=== PATIENT | male | born 1955 | race Caucasian/White ===

== ENCOUNTER 2023-10-13 01:29 | Inpatient (IN) | payer MEDICARE, BC, SELFPAY ==
[2023-10-12 19:15] VITALS: BMI 26.2
[2023-10-12 19:25] VITALS: BP 120/87
[2023-10-12 19:47] LABS: % Basophils 0.8 % (0-2); % Eosinophils 1.6 % (0-6); % Immature Granulocytes 0.4 % (0-0.5); % Lymphocytes 30.1 % (20.5-51.1); % Monocytes 8.1 % (1.7-9.3); Absolute Basophils 0.1 10^3/uL (0-0.2); Absolute Eosinophils 0.1 10^3/uL (0-0.7); Absolute Lymphocytes 2.2 10^3/uL (1.2-3.4); Absolute Monocytes 0.6 10^3/uL (0.1-0.6); Absolute Neutrophils 4.3 10^3/uL (1.4-6.5); Hematocrit 46.1 % (39.0-52.0); Hemoglobin 16.1 g/dL (13.0-18.0); Mean Corp Hgb Conc. 34.9 g/dL (33.0-37.0); Mean Corpuscular Hgb 32.9 pg (27.0-31.0); Mean Corpuscular Volume 94.3 fL (80.0-94.0); Mean Platelet Volume 12.6 fL (7.4-10.4); Nucleated Red Blood Cells % 0 % (-); Platelet Count 146 10^3/uL (130-400); Red Blood Cell Count 4.89 10^6/uL (4.70-6.10); White Blood Cell Count 7.3 10^3/uL (4.8-10.8)
[2023-10-12 20:13] LABS: ALT (SGPT) 30 U/L (0-50); AST (SGOT) 29 U/L (17-59); Albumin 3.8 g/dl (3.5-5.0); Alkaline Phosphatase 75 U/L (38-126); Blood Urea Nitrogen 29 mg/dl (9-20); Calcium 9.8 mg/dl (8.4-10.2); Carbon Dioxide 20 mmol/L (22-30); Chloride 107 mmol/L (98-107); Glucose 96 mg/dl (70-99); Potassium 4.3 mmol/L (3.5-5.1); Sodium 136 mmol/L (135-145); Total Protein 6.1 g/dl (6.3-8.2); eGFR > 60.00
[2023-10-12 20:16] LABS: NT-proBNP 8640 pg/ml; Troponin I 0.194 ng/ml
--- NOTE | 2023-10-12 20:57 | ED.GENMED ---
History of Present Illness
General
Chief Complaint: Breathing Problem
Time Seen by Provider: 10/12/23 20:40
History of Present Illness
History of Present Illness:
68-year-old male without significant past medical history presenting to the emergency department for progressively worsening dyspnea. Patient reports dyspnea essentially since June. Initially talked to his primary care doctor, thought symptoms
may be secondary to anxiety, started on antianxiety medications. However, symptoms have been worsening in the past several weeks with dyspnea on exertion and dyspnea going up stairs. He reports every time he goes to bed, feels like he is drowning,
orthopnea. As of recent, he is also had lower extremity swelling. He was thus advised to get an outpatient stress test. He was not able to get an appointment until October. Symptoms continue to worsen prompting him to come to the hospital today.
Denies any associated chest pain. Denies abdominal pain or GI symptoms. Denies known history of cardiac disease. Denies any history of blood clot. Denies fever or cough. Denies additional acute medical complaints.
Past History
Past History
ED Past Medical History: None; Negative HTN, Hypercholesterolemia, IDDM or NIDDM
ED Past Surgical History: Other (Liver biopsy); Negative Cardiac
Social History
Tobacco: Smoker
Alcohol: Other (Case last week and a half)
Drug: None
Personal:
Living: with family
Employment: Employed
Family History
Family History: Other (Brother with what sounds like arrhythmia)
Phy Exam
Physical Exam
Physical Exam:
General: Well-appearing, no clinical signs of dehydration, nontoxic and in no acute distress
HEENT: protecting airway
Neck: appears supple
CV: Normal heart rate, regular rhythm, no evidence of cyanosis
Resp: No accessory muscle use, no increased work of breathing, lungs clear to auscultation bilaterally
Abd: Soft and non-distended, no tenderness to palpation, normal bowel sounds
Extremities: No deformities, 2+ pitting edema bilaterally. No erythema or warmth.
Neuro: alert, no focal neurologic deficit
: deferred
Rectal: deferred
Psych: Normal affect
Skin: Intact
Scores
Heart Failure Risk
Heart Failure Risk Score: Yes
History of Stroke or TIA: No
History of intubation for respiratory distress: No
Heart rate on ED arrival >/= 110: No
SaO2 <90% on arrival on room air: No
HR >/=110 during 3min walk test (or too ill to perform test): No
ECG has acute ischemic changes: Yes
Urea >/=12mmol/L (BUN 33.6mg/dL): No
Serum CO2>/=35mmol/L: No
Troponin I or T elevated to ID Level (0.4mg/dL): Yes
NT-proBNP >/=5,000ng/L (5,000pg/ml): Yes
HF Risk Score: 5
Admission Status: VERY HIGH RISK 39.8% Consider admission to hospital
Course
Orders/Labs/Results
Orders:
Orders
10/12/23 19:30
Electrocardiogram (*1) Urgent
Reason for Study: Other
Other Reason for Exam: Respiratory Distress
Cardiac Monitoring- Treatment ONCE
EKG- Treatment ONCE
IV Insert/Care/Rem.- Treatment PRN
CR Chest - 2 Views Urgent
Comment:
Reason For Exam: respiratory distress
O2 Therapy [RESP] Urgent
Titrate/Wean O2 to maintain O2 sat greater than (%): 93
Special Instructions: TO MAINTAIN CONTINUOUS O2 SATS >/= 93%
Pulse Ox/cont/shift [RESP] Urgent
Quantity: 1
Special Instructions: continuous pulse ox
10/12/23 19:39
Complete Blood Count/With Diff Urgent
Comprehensive Metabolic Panel Urgent
NT-proBNP Urgent
Troponin I Urgent
10/12/23 21:16
CT Chest Pe Study Urgent
Comment:
Reason For Exam: dypnea on exertion
Abnormal Lab Results
10/12/23
19:39
MCV 94.3 H fL
(80.0-94.0)
MCH 32.9 H pg
(27.0-31.0)
RDW 15.0 H %
(11.5-14.5)
MPV 12.6 H fL
(7.4-10.4)
Carbon Dioxide 20 L mmol/L
(22-30)
BUN 29 H mg/dl
(9-20)
Troponin I 0.194 H* ng/ml
Total Protein 6.1 L g/dl
(6.3-8.2)
10/12/23 19:39
10/12/23 19:39
Vital Signs
Initial and Last Documented VS:
Initial Vital Signs
Temp Pulse Resp BP Pulse Ox
97.8 F 46 20 120/87 100
10/12/23 19:25 10/12/23 19:25 10/12/23 19:25 10/12/23 19:25 10/12/23 19:25
Last Documented Vital Signs
Temp Pulse Resp BP Pulse Ox
97.8 F 88 13 123/94 96
10/12/23 19:25 10/12/23 21:45 10/12/23 21:45 10/12/23 21:40 10/12/23 21:45
MDM/Problems Addressed
MDM/Problems Addressed:
68-year-old male without significant past medical history presenting for progressive dyspnea on exertion with lower extremity edema. Vital signs on arrival are normal.
On exam, patient is in no acute respiratory distress. Overall benign cardiac and pulmonary exam. No increased work of breathing. No rales or rhonchi. However, patient does have bilateral lower extremity pitting edema which patient reports is
new. Symptom presentation appears most consistent with new onset heart failure. EKG obtained, appears abnormal, change from prior. Patient without chest pain. Lower suspicion for ACS. Laboratory analysis obtained prior to my assessment.
Patient with elevated troponin. Possible ischemic demand versus heart strain. PE is also a consideration. For this reason we will obtain CT chest. BNP greater than 8000. Again clinical suspicion for congestive heart failure. Plan for admission
for diuresis pending CT imaging.
*EKG
Interpreted by ED Provider?: Yes
EKG Intrepretation Date: 10/12/23
EKG Intrepretation Time: 21:00
Interpretation: abnormal
Comparison EKG: changes noted
Heart Rate: 94
Rate: normal
Rhythm: sinus
Morrill: left axis deviation
Interval: normal interval
QRS Pattern: normal QRS
Ischemia: non-specific ST changes
*Critical Care Note
Total Time (30-74mins, 75-104mins- exclusive of procedures): Not Applicable
ED Attending Note
-
Portions of this chart may have been created with voice recognition software.� Occasional wrong word or��sound alike� substitutions may have occurred due to the inherent limitations of voice recognition software.
Discharge Plan
Departure
Patient Disposition: Admit
Date of Disposition: 10/12/23
Time of Disposition: 23:25
Presentation/result/management discussed w/ accepting MD/DO: Hospitalist
Condition: Fair
Discharge Problem:
Acute CHF (congestive heart failure), Dyspnea on exertion
Prescriptions:
No Action
escitalopram oxalate 10 mg Tablet
10 mg PO DAILY
Referrals:
Tom Hoang MD [Family Provider] -
Interventions
Interventions:
*Risk Screen - Suicide Last Done: 10/12/23 19:25
*General Assessment Last Done: 10/12/23 19:25
*Neglect/Abuse Screening Last Done: 10/12/23 19:25
ED- Fall Risk Assessment Last Done: 10/12/23 19:25
*ED COVID-19 Vaccine History Last Done: 10/12/23 19:25
ED- Cardiac Assessment Last Done: 10/12/23 20:42
ED- Pulmonary Assessment Last Done: 10/12/23 20:42
Discharge Date and Time
Print Language: MICRONESIAN
[2023-10-12 21:40] VITALS: BP 123/94
[2023-10-12 22:00] VITALS: BP 128/91
[2023-10-13] VITALS (8 sets, daily range): BP systolic 103–146; BP diastolic 58–98; BMI 26.9
--- NOTE | 2023-10-13 00:43 | HPS.HSE ---
Family Physician
-
Family Physician: Tom Hoang
Chief Complaint
-
Shortness of breath and peripheral edema
History of Present Illness
Patient is a 68-year-old male with no prior medical history who presents to the emergency room with about 2 weeks of onset of shortness of breath, chest tightness, and most recently with minimal exertion. Patient complains of inability to sleep at
night or laying flat. Over the last week or so he also noted peripheral edema. He denies any cough, fever. Denies any lower extremity pain, recent travel. He was seen by primary physician with at bedtime main concern for anxiety and was
initiated on escitalopram.
Medical History
Past Medical History
Past Medical History: Denies Arrhythmia, Asthma, CAD, CHF or COPD
Past Surgical History: Reports None
Social History
Tobacco: Former Smoker
Alcohol: None
Drug: Marijuana
Living: With Family
Employment: Retired
Family History
Family History: Not pertinent
Allergies / Home Medications
Allergies reflects when Allergies were last updated in [facility].
Home Medications with original date entered in [facility]
Allergy/Medication List:
Allergies
Allergy/AdvReac Type Severity Reaction Status Date / Time
No Known Allergies Allergy Verified 10/12/23 19:25
Home Medications
escitalopram oxalate 10 mg tablet 10 mg PO DAILY 10/12/23
Review of Systems
-
A 12 point ROS was completed and negative except as noted: Yes
Physical Exam
Vital Signs
Vital Signs
Temp Pulse Resp BP Pulse Ox
97.8 F 88 13 123/94 96
10/12/23 19:25 10/12/23 21:45 10/12/23 21:45 10/12/23 21:40 10/12/23 21:45
Physical Exam
General: Well Developed, Well Nourished and No Apparent Distress
HEENT: NormoCephalic, Moist mucous membranes and Atraumatic
Respiratory: Clear
Cardiac: S1/S2, Regular Rhythm and Other (Bilateral +2 peripheral edema); No Murmur or Rub
GI: Soft, Non Tender, Non Distended, Normal Bowel Sounds and Other; No Organomegaly
Rectal: Deferred by Provider
Musculoskeletal: No Clubbing, No Cyanosis and No Edema
Skin: No Rash
Neuro: Nonfocal/grossly intact
Laboratory Results
-
10/12/23 19:39
10/12/23 19:39
Laboratory Results
Total Bilirubin 1.0 mg/dl (0.2-1.3) 10/12/23 19:39
AST 29 U/L (17-59) 10/12/23 19:39
ALT 30 U/L (0-50) 10/12/23 19:39
Alkaline Phosphatase 75 U/L (38-126) 10/12/23 19:39
Troponin I 0.194 ng/ml H* 10/12/23 19:39
Data Reviewed
-
CT Scan: Report Reviewed by me
Lab Data: Labs Reviewed by me
Impression/Plan
-
IMPRESSION:
Presentation with exertional dyspnea, orthopnea, chest tightness, and peripheral edema.
Acute CHF unknown EF.
Acute pulmonary edema.
Elevated troponin.
Elevated pro CHF BNP
Anxiety
PLAN:
Acute CHF unknown EF
No prior history of cardiovascular conditions
Patient presents with exertional dyspnea, orthopnea, peripheral edema.
Chest x-ray with increased vascularity.
Noted with elevated pro CHF BNP.
CT scan of the chest PE protocol negative for pulmonary embolism. Moderate to severe cardiomegaly. Pulmonary edema. With reflux of contrast to IVC and hepatic veins, suggestion of elevated right heart pressures. Small amount of free fluid.
Nonspecific lymphadenopathy.
Echocardiogram
Initiate IV diuresis with Lasix 40 mg IV twice daily.
Daily weight
Follow BMP
Cardiology consultation
Abnormal troponin
Chest tightness
ECG with normal sinus rhythm with no acute ischemia. Inferior infarct age undetermined. Anterior infarct age indeterminant.
Trend troponin.
Serial ECG
Start aspirin
Check lipid profile
Full code
DVT prophylaxis Lovenox.
[2023-10-13] MEDS: LASIX 40 MG IV ×3 (01:44→14:46)
[2023-10-13] MEDS: LOW STRENGTH ASPIRIN 81 MG PO ×2 (01:44→08:24)
[2023-10-13] MEDS: BENADRYL 25 MG PO (02:52)
[2023-10-13 03:17] LABS: Troponin I 0.202 ng/ml
[2023-10-13 08:03] LABS: % Basophils 0.7 % (0-2); % Eosinophils 0.8 % (0-6); % Immature Granulocytes 0.5 % (0-0.5); % Lymphocytes 26.5 % (20.5-51.1); % Monocytes 7.4 % (1.7-9.3); % Neutrophils 64.1 % (42.2-75.2); Absolute Basophils 0.1 10^3/uL (0-0.2); Absolute Eosinophils 0.1 10^3/uL (0-0.7); Absolute Monocytes 0.6 10^3/uL (0.1-0.6); Absolute Neutrophils 4.8 10^3/uL (1.4-6.5); Hematocrit 46.5 % (39.0-52.0); Hemoglobin 16.3 g/dL (13.0-18.0); Mean Corp Hgb Conc. 35.1 g/dL (33.0-37.0); Mean Corpuscular Hgb 33.3 pg (27.0-31.0); Mean Corpuscular Volume 94.9 fL (80.0-94.0); Mean Platelet Volume 12.9 fL (7.4-10.4); Nucleated Red Blood Cells % 0 % (-); Platelet Count 135 10^3/uL (130-400); Red Cell Dist. Width 14.6 % (11.5-14.5); White Blood Cell Count 7.6 10^3/uL (4.8-10.8)
[2023-10-13] MEDS: LEXAPRO 10 MG PO (08:24)
[2023-10-13 08:28] LABS: Blood Urea Nitrogen 26 mg/dl (9-20); Calcium 9.3 mg/dl (8.4-10.2); Carbon Dioxide 23 mmol/L (22-30); Chloride 103 mmol/L (98-107); Estimated Creatinine Clearance 96 ml/min; Glucose 98 mg/dl (70-99); HDL Cholesterol 27 mg/dl; LDL Cholesterol, Calculated 81 mg/dl; Potassium 4.2 mmol/L (3.5-5.1); Sodium 135 mmol/L (135-145); Total Cholesterol 123 mg/dl (50-199); Triglyceride 77 mg/dl (10-149); Very Low Density Lipoprotein 15 mg/dl (0-30); eGFR > 60.00
[2023-10-13 09:44] LABS: TSH 1.43 uIU/ml (0.47-4.68)
--- NOTE | 2023-10-13 12:37 | CM ---
Patient sen bedside.
IA completed.
DX CHF
Patient lvies with spouse in 2 story home with 2 steps to enter.
Independent prior to admission without assistive devices.
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
Denies home care needs.
PCP: Dr Hoang
Pharmacy: [facility]
Plan: home no needs anticipated.
[2023-10-13 12:39] LABS: Troponin I 0.145 ng/ml
--- NOTE | 2023-10-13 13:34 | W.PN.HOSP.TC ---
Today's Communication/Plan
-
cont IV diuresis
echo Saturday
consult cards
Assessment / Plan
Assessment / Plan
pt is a 68 year old male
Acute CHF unknown EF--better with diuresis--still with volume overload--symptoms since --Echo pending--consult cards--cont diuresis, I/Os, daily weights---CT scan of the chest PE protocol negative for pulmonary embolism. Moderate to severe
cardiomegaly. Pulmonary edema. With reflux of contrast to IVC and hepatic veins, suggestion of elevated right heart pressures. Small amount of free fluid. Nonspecific lymphadenopathy.
Abnormal troponin--likely nonischemic myocardial injury from excess volume--trended downward--cont asa--await cards--ECHO pending
anxiety--cont escitalopram 15 mg daily per pt
code status --Full code
DVT prophylaxis Lovenox.
Anticipated Discharge: > 48 hours
Subjective/Interval History
-
Date of Service: October 13, 2023
pt feeling better--says ankles are down
Objective Data
-
Labs:
Laboratory Results
10/13/23
06:44
WBC 7.6
Hgb 16.3
Hct 46.5
Plt Count 135
Sodium 135
Potassium 4.2
Chloride 103
Carbon Dioxide 23
BUN 26 H
Creatinine 0.9
Glucose 98
Calcium 9.3
Vital Signs:
max temp for 24 hours
10/13/23
07:15
Temp 98 F
Vital Signs
Temp Pulse Resp BP Pulse Ox
97.4 F 89 16 122/86 94
10/13/23 11:05 10/13/23 11:05 10/13/23 11:05 10/13/23 11:05 10/13/23 11:05
I&O
10/12/23 10/13/23 10/14/23
06:59 06:59 06:59
Output Total 1400 / 1400
Balance -1400 / -1400
Review of Systems
-
All other systems: Reviewed and negative
Physical Exam
-
General: Well Developed, Well Nourished and No Apparent Distress
HEENT: Normocephalic and Atraumatic
Respiratory: Crackles (at bases bilaterally)
Cardiac: Regular Rhythm and S1/S2; Negative Murmur
GI: Soft, Nontender, Nondistended and Normal Bowel Sounds
Musculoskeletal: No Clubbing and No Cyanosis; Negative No Edema (3+ edema bilateral ankles)
Neuro: Awake and Alert
Psych: Calm
[2023-10-13] MEDS: LEXAPRO 5 MG PO (13:53)
--- NOTE | 2023-10-13 14:14 | CON.CAR ---
Consultation
Consultation Request
Date/Time Consultation Requested: 10/13/23 7:00AM
Date/Time Consultation Performed: 10/13/23 1:00pm
Requesting Provider: Dr Judd
Performing Provider: Dr Valero
Reason for Consultation: CHF
Medical History
-
Chief Complaint: sob
History of Present Illness:
68-year-old male with minimal past medical history presents to [facility] with several months of orthopnea, PND and dyspnea. The symptoms have been ongoing since June and have been slowly worsening. Last night he could not breathe while
lying flat and felt worse. He has noticed edema and weight gain in his legs. He denies any chest pains although he does get occasional fullness in the center of his chest. He denies any history of hypertension, diabetes or hyperlipidemia. He
stopped drinking several months ago where he was drinking approximately 12 beers a week. Denies any recent illnesses or URIs. He has no fevers or chills. He has no coughing or wheezing. He does not smoke. Does use occasional recreational
marijuana. He has no palpitations or syncope.
Past Medical History
Past Medical History: Other (depression)
Past Surgical History: None
Social History
Tobacco: Former Smoker
Alcohol: Former
Drug: Marijuana
Personal:
Living: With Family
Employment: Retired
Family History
Family History: CAD
Allergies / Home Medications
Allergy/AdvReac Type Severity Reaction Status Date / Time
No Known Allergies Allergy Verified 10/12/23 19:25
�Medication �Instructions �Recorded �Confirmed �Type
escitalopram oxalate 10 mg tablet 15 mg PO DAILY 10/12/23 10/13/23 History
Review of Systems
-
History Source: Patient
Constitutional: Weight Gain and Fatigue
EENT: No Symptoms
Respiratory: Trouble Breathing
Cardiac: Chest Pain
Abdomen/GI: No Symptoms
: No Symptoms
Musculoskeletal: Edema
Skin: No Symptoms
Neurological: No Symptoms
Endocrine: No Symptoms
Hematologic/Lymphatic: No Symptoms
Physical Exam
Vital Signs
Temp Pulse Resp BP Pulse Ox
97.4 F 89 16 122/86 94
10/13/23 11:05 10/13/23 11:05 10/13/23 11:05 10/13/23 11:05 10/13/23 11:05
Lab Results
10/13/23 06:44
10/13/23 06:44
Troponin I 0.145 ng/ml H* D 10/13/23 10:27
Msi-G-[id number] Pept 8640 pg/ml 10/12/23 19:39
Physical Exam
General: Well Developed, Well Nourished and Comfortable
HEENT: Normocephalic and Anicteric
Respiratory: Rhonchi and Non Labored Respirations
Cardiac: S1/S2, Regular Rhythm and Murmur (04/06 syst LSB, S3+)
GI: Soft, Non Tender and Non Distended
Genito-urinary: No Costovertebral Tender
Musculoskeletal: Edema
Skin: Warm and Dry
Neuro: AO x 3
Psych: Calm
Impression / Plan
-
Assess:
Acute heart failure of unknown EF
Abnormal troponin
PVCs
Depression
PLan:
Presents with acute heart failure which has been going on for several months. Start Lasix 40 mg IV twice daily.
Start carvedilol 3.125 mg p.o. twice daily. Continue telemetry. CHF education. Check echocardiogram.
His troponin is normal. Is unclear whether this is a nonischemic myocardial injury or whether he has underlying coronary artery disease as well.
Pending results of echo he likely will need an ischemic evaluation. Continue aspirin.
Trend troponins.
Check lipids
After results of echo if blood pressure is stable we will likely add FREDDY/ARB and possible SLG 2 inhibitor
Data Reviewed
-
EKG: Tracing Personally Visualized and interpreted
Labs: Labs Reviewed by me
[2023-10-13] MEDS: COREG 3.125 MG PO ×2 (14:46→21:16)
[2023-10-13 18:48] LABS: Troponin I 0.154 ng/ml
[2023-10-14] VITALS (18 sets, daily range): BP systolic 94–117; BP diastolic 53–99; BMI 25.5
[2023-10-14] MEDS: COREG 3.125 MG PO (07:12)
[2023-10-14] MEDS: LOW STRENGTH ASPIRIN 81 MG PO (07:12)
[2023-10-14] MEDS: LEXAPRO 15 MG PO (07:12)
[2023-10-14] MEDS: LASIX 40 MG IV ×2 (07:16→16:31)
[2023-10-14 08:34] LABS: Hematocrit 48.9 % (39.0-52.0); Mean Corp Hgb Conc. 34.8 g/dL (33.0-37.0); Mean Corpuscular Hgb 32.8 pg (27.0-31.0); Mean Corpuscular Volume 94.4 fL (80.0-94.0); Mean Platelet Volume 12.5 fL (7.4-10.4); Platelet Count 147 10^3/uL (130-400); Red Blood Cell Count 5.18 10^6/uL (4.70-6.10); Red Cell Dist. Width 14.9 % (11.5-14.5); White Blood Cell Count 7.3 10^3/uL (4.8-10.8)
--- NOTE | 2023-10-14 09:07 | W.PN.CARDCBS ---
Addendum entered and electronically signed by Gaurav Goodson DO 10/14/23 10:46:
I saw and examined the patient.
The Laminator Hand's note was reviewed and I agree with the note.
Comment:
Plan:
Wt coming down.
Cont IV diuresis
New to Coreg
Add Losartan
Trop peak 0.2.
Ischemic eval inpt vs outpt pending echo findings.
Original Note:
Today's Communication / Plan
-
Weight is down and he is symptomatically improved
Echo pending
Adding losartan 25 mg daily
Impression / Plan
-
PCP: Dr. Tom Hoang
Cardiology: None prior to admission
Impression:
Acute HF unknown EF
Elevated troponin, peak at 0.202
PVCs
Depression
Echo 10/14/23: Study pending
Plan:
-Weight is down 12 lbs overnight with Lasix 40 mg IV BID diuresis. Patient was not taking a diuretic prior to admission.
-Labs pending 10/14/23 with potassium 4.2 on 10/13/23 prior to 12 lbs diuresis. Pending labs might need electrolyte supplementation.
-Echo pending
-New to Coreg 3.125 mg BID this admission.
-Will start losartan 25 mg daily and pending echo can transition to Entresto if EF is reduced.
-Troponin peaked at 0.202. Talked with patient about possibility of cardiac cath. No chest pain and ECG with nonspecific changes.
-New to aspirin 81 mg daily
-LDL 81
HPI: 68-year-old male with minimal past medical history presents to [facility] with several months of orthopnea, PND and dyspnea. The symptoms have been ongoing since June and have been slowly worsening. Last night he could not breathe
while lying flat and felt worse. He has noticed edema and weight gain in his legs. He denies any chest pains although he does get occasional fullness in the center of his chest. He denies any history of hypertension, diabetes or hyperlipidemia.
He stopped drinking several months ago where he was drinking approximately 12 beers a week. Denies any recent illnesses or URIs. He has no fevers or chills. He has no coughing or wheezing. He does not smoke. Does use occasional recreational
marijuana. He has no palpitations or syncope.
Progress Note - Personnel Interviewer
Subjective
Date of Service: October 14, 2023
He feels much better compared to admission
Objective
Labs:
10/14/23 08:17
Labs
Hgb 17.0 g/dL (13.0-18.0) 10/14/23 08:17
Hct 48.9 % (39.0-52.0) 10/14/23 08:17
Plt Count 147 10^3/uL (130-400) 10/14/23 08:17
Sodium 135 mmol/L (135-145) 10/13/23 06:44
Potassium 4.2 mmol/L (3.5-5.1) 10/13/23 06:44
BUN 26 mg/dl (9-20) H 10/13/23 06:44
Creatinine 0.9 mg/dL (0.7-1.3) 10/13/23 06:44
Glucose 98 mg/dl (70-99) 10/13/23 06:44
Troponins
10/12/23 10/13/23 10/13/23
19:39 02:32 10:27
Troponin I 0.194 H* 0.202 H* 0.145 H* D
10/13/23
18:02
Troponin I 0.154 H*
Vital Signs and I&O:
Vital Signs
Temp Pulse Resp BP Pulse Ox
97.4 F 48 19 117/77 96
10/14/23 07:30 10/14/23 07:30 10/14/23 07:30 10/14/23 07:30 10/14/23 07:30
Vital Signs
Temp Pulse Resp BP Pulse Ox
97.4 F 48 19 117/77 96
10/14/23 07:30 10/14/23 07:30 10/14/23 07:30 10/14/23 07:30 10/14/23 07:30
Intake & Output
10/12/23 10/13/23 10/14/23 10/15/23
06:59 06:59 06:59 06:59
Intake Total 540 / 540
Output Total 1400 / 1400 250 / 250
Balance -1400 / -1400 290 / 290
Physical Exam
Physical Exam
GEN: AAOx3
HEENT: MMM
LUNGS: No audible wheeze
CV: SR on tele
ABD: ND
EXT: Trace B/L LE edema.
NEURO: Gross non-focal
SKIN: No rash
[2023-10-14 12:23] LABS: ALT (SGPT) 26 U/L (0-50); AST (SGOT) 30 U/L (17-59); Albumin 3.5 g/dl (3.5-5.0); Alkaline Phosphatase 69 U/L (38-126); Blood Urea Nitrogen 26 mg/dl (9-20); Calcium 9.4 mg/dl (8.4-10.2); Carbon Dioxide 26 mmol/L (22-30); Chloride 102 mmol/L (98-107); Estimated Creatinine Clearance 72 ml/min; Glucose 95 mg/dl (70-99); Magnesium 1.7 mg/dl (1.6-2.3); Potassium 4.1 mmol/L (3.5-5.1); Sodium 134 mmol/L (135-145); Total Bilirubin 1.2 mg/dl (0.2-1.3); Total Protein 5.8 g/dl (6.3-8.2); eGFR > 60.00
--- NOTE | 2023-10-14 13:12 | W.PN.UPDATE ---
Addendum entered and electronically signed by Carol Mathias PA-C 10/14/23 16:15:
Patient with [employer] on cath, CM is out of proportion. CT surgical team consulted. CI is 1.1 and PCWP 30. Coreg will be held. Milrinone being considered. Will continue with plan to start losartan. Start Heparin gtt at 2130 tonight, orders placed
by me. Check lactate at 2130 tonight when labs are drawn for Heparin gtt.
Patient's and sister updated by interventional cardiology. Plan is for cardiac MRI in AM, orders placed by me. Patient's sister reports FH of SCD with brother who dies in his 40s and another brother who is alive and has a h/o HF. Patient also
had a trip to [place] shortly before his symptoms began.
Original Note:
Update Note
Progress Note Update
Patient had his echo this morning and I stopped into his room again to review echo. EF down to 10% with global hypokinesis, laminated apical LV thrombus, stage 3 diastolic dysfunction and mod to sev MR. Patient recommended cardiac cath and he is
agreeable, he wants to run it by his sisters who are nurses and I offered to call them as well, but he says he is comfortable reviewing on his own and will let his RN know if he'd like cath today vs tomorrow. Patient also agreeable to start
anticoagulation for laminated thrombus. Reviewed with manager cath lab physician and manager cath lab team that patient has an apical LV thrombus and should not have a ventriculogram. Updated hospitalist attending as well. 31 minutes of critical care time in face
to face time with patient explaining echo findings, talking with interventional cardiology, coordinating care etc.
--- NOTE | 2023-10-14 15:35 | CM ---
Patient seen earlier this am and transferred to IVU. Patient plan is home with no needs. CM will continue to follow for discharge planning needs.
Plan; home with no needs anticipated
--- NOTE | 2023-10-14 15:50 | CONSULT.CT ---
Addendum entered and electronically signed by Hollis Jackson MD 10/15/23 09:22:
I saw and examined the patient.
The MANAGER INVENTORY CONTROL's note was reviewed and I agree with the note.
Comment:
Despite Echo and cath findings, he looked remarkably well this morning when I met him. His presentation was heart failure with SOB and edema. He denied significant chest pain but did admit to having some progressive symptoms starting in June with
everything worsening over the last 2 weeks. He has been diuresed several Kg. Agree with low dose milrinone, more diuresis, and MRI assessment for viability. Agree with hep gtt (eventual transition to DOAC). Would repeat TTE this week to assess for
recovery of LVEF with medical optimization. The echo and RHC findings seem out of proportion to his CAD. Will follow along. If there is some improvement and viability, I do feel that revascularization is indicated - options would be to do as an
inpatient after medical optimization OR to allow some time for GDMT followed by outpt scheduling for intervention given how stable he appears. Will need MDT discussion regarding his POC this week.
Hollis Jackson MD, MS
Cardiac Surgeon
[facility]
Original Note:
Consultation
-
Date/Time Consultation Requested: 10/14/23 1525
Date/Time Consultation Performed: 10/14/23 1551
Requesting Provider: Dr. Marshall
Performing Provider: Steven Andrea MD
Reason for Consultation: CABG eval
Patient History
Physicians
Family Physician: Tom Hoang
Outpatient Patternmaker Metal: N/A
Inpatient Patternmaker Metal: JEFF
History of Present Illness
68-year-old male with no significant prior medical history presented to [facility] emergency room on 10/12 with shortness of breath and chest tightness for about 2 weeks. He reports inability to lie flat to sleep and has noted increased peripheral
edema. Of note patient was seeing his PCP during this time, he was started on Lexapro for possible anxiety and he was scheduled for a stress test on November 02 however due to him not being able to sleep and increased peripheral edema he went to the
emergency room instead. While in the ER he was found to have elevated troponins. Cardiology was consulted and today patient received a left heart cath and TTE. Echocardiogram showed that the left ventricle was severely dilated and ejection
fraction was about 10% with severe global hypokinesis, a laminated apical thrombus, thickened mitral valve leaflets and moderate to severe MR. He was then taken to the cardiac Piano Case Maker where he was found to have a occluded LAD and a cardiac index
of 1.1. CT surgery was consulted for surgical evaluation.
Past Medical History
Past Medical History: None
Past Surgical History
Past Surgical History: None
Dental History
several missing teeth
poor dental follow up per patient last saw dentist 30 years ago
Family History
Mother: Cause of (CVA/MS)
Father: Cause of (Liver Cancer)
Family Medical History: CAD (siblings)
Social History
Alcohol: Occasional
Drug: Marijuana (daily (equal to 3 cigarettes))
Tobacco: Other (smokes marijuana via pipe)
Personal:
Living: With Spouse
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
Allergies
Allergy/AdvReac Type Severity Reaction Status Date / Time
No Known Allergies Allergy Verified 10/12/23 19:25
Home Medications
�Medication �Instructions �Recorded �Confirmed �Type
escitalopram oxalate 10 mg tablet 15 mg PO DAILY 10/12/23 10/13/23 History
Review of Systems
-
History Source: Patient
General: Reports Weight Gain, Fatigue and Sleep Disturbance
HEENT: Reports No Symptoms
Respiratory: Reports SOB, ADAME, Cough and PND
Cardiac: Reports CAD and Edema
Abdomen/GI: Reports No Symptoms
: Reports No Symptoms
Musculoskeletal: Reports No Symptoms
Skin: Reports No Symptoms
Neurological: Reports No Symptoms
Vascular: Reports No Symptoms
Physical Exam
Vital Signs
Temp 97.6 F 10/14/23 10:50
Temp route: Oral 10/14/23 10:50
Pulse 75 10/14/23 10:50
Rhythm: Normal sinus rhythm 10/14/23 07:20
With- Bundle Branch Block Confi, PVC's Monomorphic 10/14/23 07:20
Resp Rate 19 10/14/23 10:50
Blood pressure 114/72 10/14/23 10:50
Blood pressure extremity used: Left upper arm 10/14/23 10:50
Position: Sitting 10/14/23 10:50
MAP (cuff-Boubacar Monitor) 106 10/13/23 01:00
SaO2 96 10/14/23 10:50
Nasal Cannula flow liters per minute 4 10/14/23 07:30
Oxygen Mode of Delivery Room air 10/14/23 10:50
Acceptable pain level during hospitalization? 0 10/12/23 19:25
Can the patient verbally communicate their pain? Yes 10/14/23 07:20
Actual Weight 92.442 kg 10/14/23 06:00
Body Mass Index (BMI) 25.5 10/14/23 06:00
Labs
10/14/23 08:17
10/14/23 11:32
Troponin I 0.154 ng/ml H* 10/13/23 18:02
Cop-Q-Spcxujzdofl Pept 8640 pg/ml 10/12/23 19:39
Exam
General: Well Developed and Well Nourished
HEENT: Normocephalic
Respiratory: Clear and Crackles
Cardiac: S1/S2 and Regular Rhythm
GI: Soft, Non Tender and Non Distended
Rectal: Deferred by Provider
Skin: Warm and Dry
Neuro: AO x 3 and No Motor Deficits
Extremities: Lower Level Edema
Lymph: No Lymphadenopathy
Psych: Calm
Assessment / Plan
-
68-year-old male with no significant past medical history presented to [facility] and ruled in for a NSTEMI. Left heart cath revealed CAD and CT surgery was consulted for surgical evaluation.
#CAD
#Moderate to severe MR
#ICM
#Cardiogenic shock
- Patient's case will be discussed with attending physician. Further details regarding surgical timing intervention will be determined after attending physicians full evaluation
- Routine preoperative cardiothoracic surgery orders will be initiated.
- STS risk stratification score will be calculated after preoperative testing is complete
- Continue heparin gtt for LV thrombus
- Would continue diureses for surgical optimization
- Cardiac MRI tomorrow and possible swan placement Saturday per cards.
- T/C repeat TTE
- would start low dose milrinone for CI of 1.1
Data Reviewed
-
EKG: Tracing Personally Visualized and interpreted
Piano Case Maker: Image Personally Visualized and interpreted
Echo: Image Personally Visualized and interpreted, Report Reviewed by me and Discussed with Physician
Labs: Labs Reviewed by me and Discussed with Physician
Critical Care Time (in minutes): 45
Total Time Spent with Patient (in minutes): 30
--- NOTE | 2023-10-14 15:59 | PTCARENOTE ---
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 Pt with Rt radial TR band in place and Rt brachial site dsg intact. No bleeding noted. Pt AAO x 3, pt denies pain, denies sob. Pulse ox 88%, pt placed on 2l n/c oxygen. See worklist for VS/I and O and
assessment.
--- NOTE | 2023-10-14 16:32 | W.PN.HOSP.TC ---
Addendum entered and electronically signed by Rowena Judd MD 10/14/23 18:26:
I saw and evaluated the patient independently. I reviewed the resident�s note and agree with findings and plan as documented by Dr. Fleming.
GENERAL: well developed, well nourished, male in no apparent distress
HEENT: NC/AT--no O2 requirements
HEART: regular rate and rhythm, +S1, +S2, faint 1/6 ISAAC
LUNGS : clear to auscultation bilaterally
ABDOM: soft, nontender, nondistended, + bowel sounds
EXT: no cyanosis, clubbing-- 2-3+ LE edema bilaterally
NEUROLOGIC: grossly intact
Acute Mixed ischemic and nonischemic cardiomyopathy with severely reduced LV systolic function (LVEF 10% by echo) and cardiac output, consistent with cardiogenic shock--s/p cardiac cath with findings (100% chronic total occlusion of mid LAD at the
level of the diagonal branch with eccentric 70% ostial diagonal stenosis and left to left collaterals)--better with diuresis but still with volume overload--symptoms since --Echo with decreased EF and apical clot--apprec cards--cont diuresis,
I/Os, daily weights---CT scan of the chest PE protocol negative for pulmonary embolism. Moderate to severe cardiomegaly. Pulmonary edema. With reflux of contrast to IVC and hepatic veins, suggestion of elevated right heart pressures. Small
amount of free fluid. Nonspecific lymphadenopathy--likely will start milrinone for ionotropic support and to augment diuresis--for cardiac MRI as well--CT surgery consult--IV heparin started
Abnormal troponin--likely nonischemic myocardial injury from excess volume--trended downward--cont asa--apprec cards--ECHO as noted
anxiety--cont escitalopram 15 mg daily per pt
code status --Full code
DVT prophylaxis Lovenox.
Original Note:
Today's Communication/Plan
-
Started losartan and milrinone--Continue Lasix and aspirin--plan for cardiac MRI and cath tomorrow
Assessment / Plan
Assessment / Plan
pt is a 68 year old male
Exertional SOB and peripheral edema: symptoms since but got worse from 2 weeks ago--CT scan of the chest: PE protocol negative for pulmonary embolism. Moderate to severe cardiomegaly. Pulmonary edema. With reflux of contrast to IVC and
hepatic veins, suggestion of elevated right heart pressures. Small amount of free fluid. Nonspecific lymphadenopathy. Echo today showed EF down to 10% with global hypokinesis, laminated apical LV thrombus, stage 3 diastolic dysfunction and
moderate to severe MR--cont diuresis, I/Os, daily weights--appreciate cardiology consult--patient is agreeable to cardiac cath and anticoagulation treatment for laminated thrombus.
Will have cardiac MRI in a.m. losartan and milrinone started--continue aspirin and Lasix--Coreg held
Abnormal troponin--likely nonischemic myocardial injury from excess volume--trended downward
Recent diagnosis of anxiety--cont escitalopram 15 mg daily per pt
code status --Full code
DVT prophylaxis: Lovenox.
Anticipated Discharge: 24 - 48 hours
Subjective/Interval History
-
Date of Service: October 14, 2023
Patient is calm and is feeling good in general--believes peripheral edema has improved since Saturday--no complaints
Objective Data
-
Labs:
Laboratory Results
10/14/23 10/14/23 10/14/23
08:17 11:32 21:30
WBC 7.3
Hgb 17.0
Hct 48.9
Plt Count 147
APTT Pending
Sodium Cancelled 134 L
Potassium Cancelled 4.1
Chloride Cancelled 102
Carbon Dioxide Cancelled 26
BUN Cancelled 26 H
Creatinine Cancelled 1.2
Glucose Cancelled 95
Calcium Cancelled 9.4
Total Bilirubin Cancelled 1.2
AST Cancelled 30
ALT Cancelled 26
Alkaline Phosphatase Cancelled 69
Vital Signs:
Vital Signs
Temp Pulse Resp BP Pulse Ox
97.9 F 75 19 102/80 94
10/14/23 16:08 10/14/23 16:31 10/14/23 10:50 10/14/23 16:31 10/14/23 16:10
I&O
10/13/23 10/14/23 10/15/23
06:59 06:59 06:59
Intake Total 540 / 540
Output Total 1400 / 1400 250 / 250
Balance -1400 / -1400 290 / 290
Review of Systems
-
History Source: Patient
All other systems: Reviewed and negative
Constitutional: Reports No Symptoms
Musculoskeletal: Reports Edema
Physical Exam
-
General: Well Developed, Well Nourished and Comfortable
HEENT: Normocephalic and Atraumatic
Respiratory: Crackles
Cardiac: Regular Rhythm and S1/S2
Musculoskeletal: Edema, Right Lower Extrem and Edema, Left Lower Extrem
Psych: Calm
Data Reviewed
-
Total Time Spent with Patient (in minutes): 20
--- NOTE | 2023-10-14 16:50 | ITS.CL.CATH ---
Addendum entered and electronically signed by Bindu Marshall MD 10/14/23 17:14:
Of note, after heart catheterization I had a lengthy discussion about all of the findings with the patient along with his and sister who is a retired ICU nurse. We discussed findings of the heart catheterization including the fact that we
think there is a mixed cardiomyopathy going on with a severely reduced LV systolic function with plans to initiate medications including low-dose milrinone with close monitoring in the IVU and the fact that we would pursue a cardiac MRI. Given
severely reduced cardiac output with elevated filling pressures and an LVEF of 10% in a otherwise young patient with significant comorbid conditions, I also reached out to Dr. Alexandra Gabriel [facility] to discuss patient's case in case
his clinical status worsens in any way warranting mechanical support and potential transfer to a tertiary care center. She agreed with our plan for now in regards to medical therapy as planned including afterload reduction and inotropic support as
well as pursuing a cardiac MRI given LV dysfunction is out of proportion to be explained by the degree of coronary artery disease.
Bindu Marshall MD, [facility], [facility]
Original Note:
[employer] - Catheterization
Cardiac Catheterization
Procedure Report:
LEFT AND RIGHT HEART CATHETERIZATION
Date of Procedure: October 14, 2023
Referring: Gaurav Goodson D.O.
PROCEDURES:
1. Left catheterization, coronary angiogram.
2. Right heart catheterization.
3. Ultrasound-guided access
INDICATION: Patient is a 68-year-old gentleman with family history of coronary artery disease on his mom side and 2 siblings with ' congestive heart failure', 1 of whom after sudden cardiac arrest, former smoker, quit 40 years ago,
occasional marijuana use and recent trip to [facility] in early June with progressive dyspnea starting Easter found to have acute decompensated heart failure with severely reduced ejection fraction of 10% on echocardiogram this morning with LV
end-diastolic dimension of 7 cm. Echocardiogram was also notable for a laminated LV thrombus. He is now being referred for left and right heart catheterization to rule out obstructive CAD and to assess invasive hemodynamics. Patient was started
on low-dose carvedilol and IV Lasix yesterday and is already down 12 pounds with improvement in his shortness of breath. He denies any chest discomfort through this. He denies any recent respiratory illnesses. He is up-to-date on his flu and
COVID vaccines. He denies any significant alcohol use. TSH normal.
ACCESS:
1. Right radial artery, 6 Azerbaijani sheath, under ultrasound guidance.
2. Right brachial vein, 6 Azerbaijani sheath
HEMODYNAMICS : (mmHg)
RA (m) : 12
RV (s/d,m) : 42/11, 17
PA (s/d, m) : 41/24, 31
PCWP (m) : 31
PA saturation: 49.4% on 4 L of oxygen via nasal cannula
AO saturation: 98.3% on 4 L of oxygen via nasal cannula
RA saturation: 53.1% on 4 L of oxygen via nasal cannula.
Cardiac Output : 2.36 L/min
Cardiac Index : 1.06 L/min/m-2
Systemic vascular resistance: 2547 dsc^(-5)
Pulmonary vascular resistance: [ ] schulz unit
Heart rate: 60 bpm
AO (s/d) : 102/79
Aortic valve was not crossed to obtain LVEDP in the setting of known left ventricular thrombus.
CORONARY FINDINGS
DOMINANCE: Left
LEFT MAIN: The left renal artery is a large-caliber vessel which gives rise to the left anterior descending artery and the left circumflex artery. There is minimal luminal irregularities.
LEFT ANTERIOR DESCENDING: The left anterior descending artery is a medium caliber vessel which gives rise to 2 major diagonal branches as it courses through the anterior interventricular groove towards the apex. In the mid LAD at the level of the
takeoff of the second diagonal branch which is medium caliber 100% chronic total occlusion is noted with left to left collaterals. Ostial diagonal has an eccentric 70% stenosis.
CIRCUMFLEX: The left circumflex artery is a medium to large caliber, dominant vessel which gives rise to 2 major obtuse marginal branches, a left posterolateral branch and the left posterior descending artery. OM1 has mild diffuse atherosclerotic
plaque in the proximal portion including the ostium. Otherwise there is minimal luminal irregularities with moderate degree of tortuosity.
RIGHT CORONARY ARTERY: The right coronary artery is a small caliber, nondominant vessel with minimal luminal irregularities.
SEDATION: 47 minutes of procedural sedation was utilized. An independent medical social worker was present to assist with and help manage the patient's level of consciousness and physiologic status.
RADIATION SUMMARY: Fluoro Time (min): 3.3, Dose (mGy): 485.64, DAP (Gy.cm2) : 29.7
Closure Device:
1. Vascular band over right radial artery, 12 cc of air.
2. Manual pressure was held over the right brachial venous access site with successful hemostasis.
CONCLUSIONS
1. Left dominant coronary circulation
2. 100% chronic total occlusion of mid LAD at the level of the diagonal branch with eccentric 70% ostial diagonal stenosis and left to left collaterals.
3. Non-obstructive coronary artery disease otherwise.
4. Significantly elevated right and left-sided filling pressures with severely reduced cardiac output in the setting of severely elevated systemic vascular resistance.
RECOMMENDATIONS
1. Mixed ischemic and nonischemic cardiomyopathy with severely reduced LV systolic function (LVEF 10% by echo) and cardiac output. Optimization of goal-directed medical therapy along with initiation of inotropic therapy to help reduce with
afterload reduction and promote forward flow. We will discontinue beta-carolina to prevent negative inotropic agent.
2. Will obtain CT surgery consult for heart team discussion and pursue cardiac MRI to workup nonischemic causes of cardiomyopathy.
3. Aggressive management of cardiovascular risk factors.
4. Wean radial band per protocol.
5. Eventual referral for outpatient cardiac rehab and repeat echocardiogram in 3 months to reassess LVEF.
Copy to: William Valero, Gaurav Goodson
Bindu Marshall MD, [facility], [facility]
[2023-10-14] MEDS: MAGNESIUM OXIDE 500 MG PO (17:35)
[2023-10-14] MEDS: CRESTOR 20 MG PO (17:35)
--- NOTE | 2023-10-14 18:16 | PTCARENOTE ---
unable to obtain BP in Rt upper arm due to Rt brachial vein site and Rt radial artery used for cardiac cath.
[2023-10-14 19:25] LABS: Amphetamines Negative (Negative); Barbiturates Negative (Negative); Benzodiazepines Negative (Negative); Buprenorphine Negative (Negative); Cocaine Negative (Negative); Marijuana Positive (Negative); Methadone Negative (Negative); Methamphetamines Negative (Negative); Opiates Negative (Negative); Phencyclidine Negative (Negative); Tricyclic Antidepressants Negative (Negative)
[2023-10-14] MEDS: HEPARIN 25000 UNITS/250 ML IV (21:38)
[2023-10-14] MEDS: COZAAR 25 MG PO (21:41)
[2023-10-14 21:59] LABS: APTT 28.3 Sec (23.4-35.0)
[2023-10-14 22:00] LABS: Lactic Acid 1.1 mmol/L (0.7-2.0)
[2023-10-14 22:13] LABS: Alcohol None Detected
[2023-10-15] VITALS (7 sets, daily range): BP systolic 94–126; BP diastolic 57–89; BMI 25.5
[2023-10-15 03:59] LABS: Hematocrit 42.6 % (39.0-52.0); Hemoglobin 15.1 g/dL (13.0-18.0); Mean Corp Hgb Conc. 35.4 g/dL (33.0-37.0); Mean Corpuscular Hgb 33.3 pg (27.0-31.0); Mean Corpuscular Volume 93.8 fL (80.0-94.0); Mean Platelet Volume 12.5 fL (7.4-10.4); Platelet Count 116 10^3/uL (130-400); Red Blood Cell Count 4.54 10^6/uL (4.70-6.10); Red Cell Dist. Width 14.3 % (11.5-14.5); White Blood Cell Count 6.1 10^3/uL (4.8-10.8)
[2023-10-15 04:13] LABS: APTT 46.1 Sec (23.4-35.0); INR 1.33; PT 16.3 Sec (11.4-14.6)
[2023-10-15 04:29] LABS: ALT (SGPT) 22 U/L (0-50); AST (SGOT) 25 U/L (17-59); Alkaline Phosphatase 64 U/L (38-126); Blood Urea Nitrogen 27 mg/dl (9-20); Calcium 8.9 mg/dl (8.4-10.2); Carbon Dioxide 25 mmol/L (22-30); Chloride 101 mmol/L (98-107); Direct Bilirubin 0.3 mg/dl (0.0-0.4); Estimated Creatinine Clearance 79 ml/min; Glucose 93 mg/dl (70-99); HDL Cholesterol 23 mg/dl; LDL Cholesterol, Calculated 68 mg/dl; Magnesium 1.7 mg/dl (1.6-2.3); Potassium 3.6 mmol/L (3.5-5.1); Sodium 134 mmol/L (135-145); Total Bilirubin 0.9 mg/dl (0.2-1.3); Total Cholesterol 104 mg/dl (50-199); Total Protein 5.3 g/dl (6.3-8.2); Triglyceride 65 mg/dl (10-149); Very Low Density Lipoprotein 13 mg/dl (0-30); eGFR > 60.00
[2023-10-15] MEDS: LOW STRENGTH ASPIRIN 81 MG PO (08:53)
[2023-10-15] MEDS: COZAAR 25 MG PO (08:54)
[2023-10-15] MEDS: MAGNESIUM OXIDE 500 MG PO (08:54)
[2023-10-15] MEDS: LASIX 40 MG IV ×2 (08:55→09:50)
[2023-10-15] MEDS: LEXAPRO 15 MG PO (08:56)
--- NOTE | 2023-10-15 09:02 | W.PN.UPDATE ---
Update Note
Progress Note Update
Patient seen at bedside with attending physician.
Case reviewed with patient.
CT surgery is following for evaluation regarding CABG x 1 (GEOLOGICAL E LOGGER of LAD), mixed ischemic and nonischemic cardiomyopathy with EF of 10%, and moderate to severe MR.
#Single vessel CAD
# Moderate to severe MR
# Cardiogenic shock
# Mixed ischemia and nonischemic CM with EF 10%
Continue primary management per hospitalist service
Continue Heparin and Milrinone gtt per Cardiology
Cardiac MRI to determine viability (scheduled to be done today 10/14)
Central venous catheter with [place] catheter tentatively Sunday 10/15
Will eventually need repeat echocardiogram
Patient being diuresed with Lasix 80 IV BID, will order 25% albumin to be given with Lasix.
CT surgery will follow appropriately
Further plans regarding patients intervention will be decided after further review of the above procedures/exams
--- NOTE | 2023-10-15 09:28 | CM ---
Reviewed chart. Mr.. Summers was transferred to IVU. He states prior to admission he resides with his spouse and son in a two story home with three steps to enter. He states he has a full flight of steps to get to bedroom/full bathroom. He states
he has a powder room on the first floor. He states prior to admission he was independent with ambulation and adls. He states he does not have any DME in the home. He states he has a prescription plan. Medical work-up in progress. The discharge
plan is to return home with his spouse and son when medically stable.
[2023-10-15] MEDS: KCL 40 MEQ PO (09:50)
[2023-10-15] MEDS: FLEXBUMIN 50 IV ×2 (10:10→16:11)
--- NOTE | 2023-10-15 10:40 | PTCARENOTE ---
Pt left floor for PFT and CS US
[2023-10-15 10:48] LABS: APTT 44.8 Sec (23.4-35.0)
--- NOTE | 2023-10-15 11:27 | PTCARENOTE ---
Pt platelets 116,000 this AM. Notified Pat Doyle and Dr. Judd. Continuing heparin for now.
--- NOTE | 2023-10-15 12:28 | W.PN.CARDCBS ---
Addendum entered and electronically signed by Wilbert Kincaid MD 10/15/23 13:33:
I saw and examined the patient.
The BENZENE WORKER or PA's note was reviewed and I agree with the note.
Comment: General: Well developed, well nourished in NAD.
Neck: Supple, no JVD, HJR, carotids +2 B/L, no bruits bilaterally.
Heart: Non displaced PMI, RRR, no murmurs, No S3, S4, no rubs.
Lungs: Scattered rhonchi
Extremities: No clubbing, cyanosis or edema bilaterally.
Neuro: Grossly nonfocal, awake, alert and oriented x3.
He feels very well but evidence of CHF on right heart catheterization on 10/14/2023. Will increase IV Lasix. Will continue milrinone. Will continue to try and treat medically. Perhaps LV function and MR will improve with treatment. CT surgery
has met with patient and would consider mitral valve surgery if MR persist despite treatment. Will continue IV heparin for now with LV thrombus.
Original Note:
Today's Communication / Plan
-
Replete potassium and magnesium
Increase Lasix to 80 mg IV twice daily
Continue milrinone drip
Cardiac MRI 10/16/2023 with placement of [place] catheter following
Continue IV heparin for left ventricle laminated apical thrombus
Impression / Plan
-
PCP: Dr. Tom Hoang
Cardiology: None prior to admission
Impression:
Presented 10/12/2023 with acute shortness of breath
Acute HF severely reduced ejection fraction EF, proBNP 8640
Cardiogenic shock
Elevated troponin, peak at 0.202
Type 2 CA
Coronary artery disease
Chronic total occlusion of mid LAD
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
Moderate to severe mitral regurgitation
PVCs
Depression
Cardiac catheterization 10/14/2023: LM: I.lad: chronic total occlusion mid with left to left collaterals. Ostial diagonal 70% stenosis. LCX: Luminal irregularities: RCA: Luminal irregularities.
HEMODYNAMICS : (mmHg): RA (m) : 12; RV (s/d,m) : 42/11, 17; PA (s/d, m) : 41/24, 31; PCWP (m) : 31;
PA saturation: 49.4% on 4 L of oxygen via nasal cannula
AO saturation: 98.3% on 4 L of oxygen via nasal cannula
RA saturation: 53.1% on 4 L of oxygen via nasal cannula.
Cardiac Output : 2.36 L/min
Cardiac Index : 1.06 L/min/m-2
Systemic vascular resistance: 2547 dsc^(-5)
Pulmonary vascular resistance: [ ] schulz unit
Heart rate: 60 bpm
AO (s/d) : 102/79
Aortic valve was not crossed to obtain LVEDP in the setting of known left ventricular thrombus.
Echo 10/14/23: EF 10%. Severely dilated LV. Severely reduced LV function with global hypokinesis. Anteroseptal, septal and apical akinesis. Stage III diastolic dysfunction with restrictive filling pattern and increased filling pressures.
Laminated LV apical thrombus. Severely dilated LA. Moderate to severe MR. Mild TR. PAP 39 mmHg. Mildly dilated aortic root sinus of Valsalva 3.9 cm
Plan:
-Presented 10/12/2023 with acute shortness of breath, weight gain and edema.
-Acute heart failure with severely reduced ejection fraction, proBNP 8640 with mixed ischemic and nonischemic cardiomyopathy out of proportion to coronary artery disease found on cardiac catheterization
-Cardiogenic shock with cardiac index of 1.06 on right heart catheterization 0n 10/14/23. Initiation of inotropic therapy to help reduce with afterload reduction and promote forward flow. Patient now on IV milrinone at 0.125 mcg/kg/min and feeling
well.
-Weight is down 11 lbs overnight since admission. Increased IV Lasix to 80 mg twice daily 10/15/23. Patient was not taking a diuretic prior to admission.
-Potassium 3.6, magnesium 1.7. Will replete.
-Echo as noted above EF 10%
-Type II CA, peak troponin 0.202 with single-vessel coronary artery disease with chronic total occlusion of LAD with collaterals noted on catheterization 10/14/2023
-Given cardiogenic shock hold on Coreg. Patient started on losartan. Eventual GDMT
-Left ventricle laminated apical thrombus. Continue IV heparin drip; will eventually need oral anticoagulation
-Plan is for patient to undergo cardiac MRI. After talking with MRI department tentatively scheduled for 10/16/2023. After completion of MRI patient will undergo placement of [place] catheter for close monitoring of hemodynamics
-Eventual repeat echocardiogram later this week with diuresis
-Being evaluated by CT surgery for eventual CABG x 1 and mitral valve repair/replacement. They have recommended 25% albumin to be given with Lasix.
HPI: 68-year-old male with minimal past medical history presents to [facility] with several months of orthopnea, PND and dyspnea. The symptoms have been ongoing since June and have been slowly worsening. Last night he could not breathe
while lying flat and felt worse. He has noticed edema and weight gain in his legs. He denies any chest pains although he does get occasional fullness in the center of his chest. He denies any history of hypertension, diabetes or hyperlipidemia.
He stopped drinking several months ago where he was drinking approximately 12 beers a week. Denies any recent illnesses or URIs. He has no fevers or chills. He has no coughing or wheezing. He does not smoke. Does use occasional recreational
marijuana. He has no palpitations or syncope.
Progress Note - Utility Aide
Subjective
Date of Service: October 15, 2023
Patient seen and examined. Patient sitting up in chair in room. Patient reports he is feeling significantly better. He was able to sleep last night without waking up with orthopnea or PND. He feels his lower extremity edema is improving as well.
He denies chest pain, dizziness or lightheadedness
Objective
Labs:
10/15/23 03:47
10/15/23 03:47
Labs
Hgb 15.1 g/dL (13.0-18.0) 10/15/23 03:47
Hct 42.6 % (39.0-52.0) 10/15/23 03:47
Plt Count 116 10^3/uL (130-400) L D 10/15/23 03:47
PT 16.3 Sec (11.4-14.6) H 10/15/23 03:47
PT Cancelled 10/15/23 03:47
INR 1.33 10/15/23 03:47
INR Cancelled 10/15/23 03:47
APTT 44.8 Sec (23.4-35.0) H 10/15/23 10:09
Sodium 134 mmol/L (135-145) L 10/15/23 03:47
Potassium 3.6 mmol/L (3.5-5.1) 10/15/23 03:47
BUN 27 mg/dl (9-20) H 10/15/23 03:47
Creatinine 1.1 mg/dL (0.7-1.3) 10/15/23 03:47
Glucose 93 mg/dl (70-99) 10/15/23 03:47
Troponins
10/12/23 10/13/23 10/13/23
19:39 02:32 10:27
Troponin I 0.194 H* 0.202 H* 0.145 H* D
10/13/23
18:02
Troponin I 0.154 H*
Vital Signs and I&O:
Vital Signs
Temp Pulse Resp BP Pulse Ox
97.7 F 77 18 106/79 98
10/15/23 11:17 10/15/23 11:45 10/15/23 11:17 10/15/23 11:22 10/15/23 11:17
Vital Signs
Temp Pulse Resp BP Pulse Ox
97.7 F 77 18 106/79 98
10/15/23 11:17 10/15/23 11:45 10/15/23 11:17 10/15/23 11:22 10/15/23 11:17
Intake & Output
10/13/23 10/14/23 10/15/23 10/16/23
06:59 06:59 06:59 06:59
Intake Total 540 / 540 260 / 260
Output Total 1400 / 1400 250 / 250 600 / 600 600 / 600
Balance -1400 / -1400 290 / 290 -340 / -340 -600 / -600
Physical Exam
Physical Exam
GEN: No distress, awake, Ox3, sitting up in chair
HEENT: supple, anicteric, mmm
LUNGS: Faint crackles at bases otherwise CTA, no wheezes/rales; on room air
CV: Reg, S1/S2, 2/6 apical murmur
ABD: soft, BS+, NT/ND
EXT: Trace to +1 bilateral lower extremity edema
NEURO: Gross non-focal
SKIN: No rash, warm, dry, pink
--- NOTE | 2023-10-15 13:32 | PTCARENOTE ---
Pt went to US @ 1300 and returned at 2918
--- NOTE | 2023-10-15 13:46 | W.PN.UPDATE ---
Update Note
Progress Note Update
Procedure Type:�CABG + MVr
PERIOPERATIVE OUTCOME ESTIMATE %
Operative Mortality 6.4%
Morbidity & Mortality 42.6%
Stroke 1.3%
Renal Failure 3.24%
Reoperation 13.5%
Prolonged Ventilation 38.2%
Deep Sternal Wound Infection 0.151%
Long Hospital Stay (>14 days) 26%
Short Hospital Stay (<6 days)* 6.11%
Clinical Summary
Planned Surgery: CABG + MVr, Urgent, First cardiovascular surgery
Demographics: 68 year old, White, male, 92.7kg, 191cm, BMI: 25.4 kg/m�
Lab Values: Creatinine: 1.1 mg/dL, Hematocrit: 42.6%, WBC Count: 6.1 10�/�L, Platelet Count: 950977 cells/�L
PreOp Medications: Inotropes <=48 hrs
Substance Abuse: Current smoker, Alcohol use: 2-7 drinks/week
Risk Factors / Comorbidities: Family Hx of CAD
Cardiac Status: Acute and chronic heart failure, NYHA Class III, Cardiogenic Shock, Ejection Fraction = 10%
Coronary Artery Disease: 1 vessel diseased, Proximal LAD Stenosis >=70%, Non-ST Elevation SD, SD: 1 to 7 Days
Valve Disease: Trivial/Trace AR, Severe MR, Mild TR
--- NOTE | 2023-10-15 15:36 | PTCARENOTE ---
Pt. bp 95/57. Notified Dr. Judd and Pat Doyle. Still to give Lasix and albumin @ 1600
[2023-10-15] MEDS: PRIMACOR 20 MG 100 IV (16:14)
[2023-10-15] MEDS: LASIX 80 MG IV (16:16)
[2023-10-15] MEDS: KCL 20 MEQ PO (16:17)
[2023-10-15] MEDS: CRESTOR 20 MG PO (17:56)
--- NOTE | 2023-10-15 18:25 | W.PN.HOSP.TC ---
Addendum entered and electronically signed by Rowena Judd MD 10/15/23 19:19:
I saw and evaluated the patient independently. I reviewed the resident�s note and agree with findings and plan as documented by Dr. Fleming.
GENERAL: well developed, well nourished, male in no apparent distress
HEENT: NC/AT--no O2 requirements
HEART: regular rate and rhythm, +S1, +S2, faint 1/6 ISAAC
LUNGS : clear to auscultation bilaterally
ABDOM: soft, nontender, nondistended, + bowel sounds
EXT: no cyanosis, clubbing-- 2-3+ LE edema bilaterally
NEUROLOGIC: grossly intact
Acute Mixed ischemic and nonischemic cardiomyopathy with severely reduced LV systolic function (LVEF 10% by echo) and cardiac output, consistent with cardiogenic shock--s/p cardiac cath with findings (100% chronic total occlusion of mid LAD at the
level of the diagonal branch with eccentric 70% ostial diagonal stenosis and left to left collaterals)--better with diuresis but still with volume overload--symptoms since --Echo with decreased EF and apical clot--apprec cards--cont diuresis,
I/Os, daily weights---CT scan of the chest PE protocol negative for pulmonary embolism. Moderate to severe cardiomegaly. Pulmonary edema. With reflux of contrast to IVC and hepatic veins, suggestion of elevated right heart pressures. Small
amount of free fluid. Nonspecific lymphadenopathy--cont milrinone for ionotropic support and to augment diuresis--for cardiac MRI --CT surgery consult apprec--IV heparin started
Abnormal troponin--likely nonischemic myocardial injury from excess volume--trended downward--cont asa--apprec cards--ECHO as noted
anxiety--cont escitalopram 15 mg daily per pt
code status --Full code
DVT prophylaxis -- on IV heparin
Original Note:
Today's Communication/Plan
-
PFT--continue milrinone and heparin--increase Lasix 80 twice daily
Assessment / Plan
Assessment / Plan
pt is a 68 year old male
Exertional SOB and peripheral edema: symptoms since but got worse from 2 weeks ago--CT scan of the chest: PE protocol negative for pulmonary embolism. Moderate to severe cardiomegaly. Pulmonary edema. With reflux of contrast to IVC and
hepatic veins, suggestion of elevated right heart pressures. Small amount of free fluid. Nonspecific lymphadenopathy. Echo today showed EF down to 10% with global hypokinesis, laminated apical LV thrombus, stage 3 diastolic dysfunction and
moderate to severe MR--cont diuresis, I/Os, daily weights--cath showed 100% chronic total occlusion of mid LAD-- appreciate cardiology consult--Will increase IV Lasix to 80 twice daily. Will continue milrinone. Perhaps LV function and MR will
improve with treatment. CT surgery has met with patient and would consider CABG & mitral valve surgery if MR persist despite treatment. Will continue IV heparin for now with LV thrombus.
Will have cardiac MRI in a.m tomorrow
Abnormal troponin--likely nonischemic myocardial injury from excess volume--trended downward
Recent diagnosis of anxiety--cont escitalopram 15 mg daily per pt
code status --Full code
Anticipated Discharge: 24 - 48 hours
Subjective/Interval History
-
Date of Service: October 15, 2023
Objective Data
-
Labs:
Laboratory Results
10/15/23 10/15/23 10/15/23
10:09 16:55 23:59
APTT 44.8 H 48.0 H Pending
Vital Signs:
Vital Signs
Temp Pulse Resp BP Pulse Ox
97.9 F 79 16 95/57 95
10/15/23 15:32 10/15/23 15:30 10/15/23 15:15 10/15/23 16:16 10/15/23 15:15
I&O
10/14/23 10/15/23 10/16/23
06:59 06:59 06:59
Intake Total 540 / 540 260 / 260
Output Total 250 / 250 600 / 600 1275 / 1275
Balance 290 / 290 -340 / -340 -1275 / -1275
--- NOTE | 2023-10-15 22:50 | PTCARENOTE ---
Patient with no complaints. Heparin and milrinone infusing. VSS, call wolff in reach
--- NOTE | 2023-10-15 23:49 | PTCARENOTE ---
PTT collected, VSS, call wolff in reach
[2023-10-16] VITALS (15 sets, daily range): BP systolic 96–126; BP diastolic 67–104; BMI 24.4
[2023-10-16 00:04] LABS: APTT 85.2 Sec (23.4-35.0)
[2023-10-16 06:07] LABS: Hematocrit 43.1 % (39.0-52.0); Hemoglobin 15.2 g/dL (13.0-18.0); Mean Corp Hgb Conc. 35.3 g/dL (33.0-37.0); Mean Corpuscular Hgb 32.6 pg (27.0-31.0); Mean Corpuscular Volume 92.5 fL (80.0-94.0); Mean Platelet Volume 12.5 fL (7.4-10.4); Platelet Count 129 10^3/uL (130-400); Red Blood Cell Count 4.66 10^6/uL (4.70-6.10); Red Cell Dist. Width 14.6 % (11.5-14.5); White Blood Cell Count 7.1 10^3/uL (4.8-10.8)
[2023-10-16 06:20] LABS: APTT 136.8 Sec (23.4-35.0)
[2023-10-16 07:05] LABS: ALT (SGPT) 20 U/L (0-50); AST (SGOT) 22 U/L (17-59); Albumin 3.5 g/dl (3.5-5.0); Alkaline Phosphatase 67 U/L (38-126); Blood Urea Nitrogen 25 mg/dl (9-20); Calcium 9.4 mg/dl (8.4-10.2); Carbon Dioxide 27 mmol/L (22-30); Chloride 100 mmol/L (98-107); Estimated Creatinine Clearance 79 ml/min; Glucose 94 mg/dl (70-99); Magnesium 1.7 mg/dl (1.6-2.3); Sodium 134 mmol/L (135-145); Total Protein 5.7 g/dl (6.3-8.2); eGFR > 60.00
--- NOTE | 2023-10-16 07:28 | W.PN.CARDCBS ---
Addendum entered and electronically signed by Bindu Marshall MD 10/16/23 13:57:
I saw and examined the patient.
The Director Of Scout Work's note was reviewed and I agree with the note.
Comment: Status post milligram this morning without evidence of any infiltrative process. Severe hypokinesis noted with regions of old infarction including areas of thinning and a small focus of enhancement within the LV apex compatible with apical
thrombus. No evidence of noncompaction cardiomyopathy. Moderate MR and TR noted. In general patient feels significantly better symptomatically than when he came in to the hospital.
Plan for repeat right heart catheterization with leave in [place] today to help guide medical therapy.
On exam patient is well-appearing in no acute distress, A and O x 3, regular rate, normal S1 and S2, fine bibasilar Rales, elevated JVD, abdomen is soft, nontender, nondistended with active bowel sounds, warm extremities
Telemetry with sinus rhythm and frequent PVCs and short runs of NSVT.
Recommendations:
1. Continue low-dose milrinone with introduction of afterload reducing medication such as losartan and slow up titration as hemodynamics will allow.
2. Continued IV diuresis.
3. Plan for repeat right heart catheterization with leave in [place] today to help guide medical therapy.
4. Continued IV heparin for now for known LV thrombus. Once the [place]-Abe catheter is discontinued we will transition over to warfarin.
Bindu Marshall MD, [facility], [facility]
Original Note:
Today's Communication / Plan
-
Cardiac MRI did not show infiltrative process
Repeat RHC today
Impression / Plan
-
PCP: Dr. Tom Hoang
Cardiology: None prior to admission
Impression:
Presented 10/12/2023 with acute shortness of breath
Acute HF severely reduced ejection fraction EF
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
Cardiogenic shock
Elevated troponin, peak at 0.202
Type 2 RI
Coronary artery disease
Chronic total occlusion of mid LAD by cath 10/14/23
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
Moderate to severe mitral regurgitation
PVCs
Depression
Cardiac catheterization 10/14/2023: LM: LAD: chronic total occlusion mid with left to left collaterals. Ostial diagonal 70% stenosis. LCX: Luminal irregularities: RCA: Luminal irregularities.
HEMODYNAMICS : (mmHg): RA (m) : 12; RV (s/d,m) : 42/11, 17; PA (s/d, m) : 41/24, 31; PCWP (m) : 31;
PA saturation: 49.4% on 4 L of oxygen via nasal cannula
AO saturation: 98.3% on 4 L of oxygen via nasal cannula
RA saturation: 53.1% on 4 L of oxygen via nasal cannula.
Cardiac Output : 2.36 L/min
Cardiac Index : 1.06 L/min/m-2
Systemic vascular resistance: 2547 dsc^(-5)
Pulmonary vascular resistance: [ ] schulz unit
Heart rate: 60 bpm
AO (s/d) : 102/79
Aortic valve was not crossed to obtain LVEDP in the setting of known left ventricular thrombus.
Echo 10/14/23: EF 10%. Severely dilated LV. Severely reduced LV function with global hypokinesis. Anteroseptal, septal and apical akinesis. Stage III diastolic dysfunction with restrictive filling pattern and increased filling pressures.
Laminated LV apical thrombus. Severely dilated LA. Moderate to severe MR. Mild TR. PAP 39 mmHg. Mildly dilated aortic root sinus of Valsalva 3.9 cm
Cardiac MRI 10/16/23: There are areas of thinning and postcontrast enhancement of the left ventricle compatible with regions of old infarction, small focus of not enhancement within the LV apex compatible with apical thrombus, no evidence of
infiltrative process, moderate MR and TR
Plan:
-Weight is down 21 lbs with Lasix 80 mg IV BID diuresis. He was not taking a diuretic prior to admission.
-EF was 10% by echo 10/14/23 and patient was agreeable to an echo that showed a MATERIAL ENGINEER LAD, but CM was out of proportion to CAD so cardiac MRI ordered that showed no evidence of infiltrative process, but concern for areas of old infarction.
-Medical therapy included milrinone at 0.125 mcg/kg/min that was started 10/14/23. Repeat RHC planned for 10/16/23. PCWP was 31 by initial RHC 10/14/23
-Coreg had been started on admission, but was stopped following RHC and initiation of milrinone
-New to losartan 25 mg daily
-Troponin peaked at 0.202 and will be managed as a nonischemic myocardial injury Troponin elevation due to acute HF.
-Remains on Heparin gtt for LV thrombus seen on echo and MRI. Eventually bridge to warfarin.
HPI: 68-year-old male with minimal past medical history presents to [facility] with several months of orthopnea, PND and dyspnea. The symptoms have been ongoing since June and have been slowly worsening. Last night he could not breathe
while lying flat and felt worse. He has noticed edema and weight gain in his legs. He denies any chest pains although he does get occasional fullness in the center of his chest. He denies any history of hypertension, diabetes or hyperlipidemia.
He stopped drinking several months ago where he was drinking approximately 12 beers a week. Denies any recent illnesses or URIs. He has no fevers or chills. He has no coughing or wheezing. He does not smoke. Does use occasional recreational
marijuana. He has no palpitations or syncope.
Progress Note - Tobacco Acreage Measurer
Subjective
Date of Service: October 16, 2023
He feels better since admission
Objective
Labs:
10/16/23 05:55
10/16/23 05:55
Labs
Hgb 15.2 g/dL (13.0-18.0) 10/16/23 05:55
Hct 43.1 % (39.0-52.0) 10/16/23 05:55
Plt Count 129 10^3/uL (130-400) L 10/16/23 05:55
PT 16.3 Sec (11.4-14.6) H 10/15/23 03:47
PT Cancelled 10/15/23 03:47
INR 1.33 10/15/23 03:47
INR Cancelled 10/15/23 03:47
APTT 136.8 Sec (23.4-35.0) H 10/16/23 05:55
Sodium 134 mmol/L (135-145) L 10/16/23 05:55
Potassium 4.0 mmol/L (3.5-5.1) 10/16/23 05:55
BUN 25 mg/dl (9-20) H 10/16/23 05:55
Creatinine 1.1 mg/dL (0.7-1.3) 10/16/23 05:55
Glucose 94 mg/dl (70-99) 10/16/23 05:55
Troponins
10/13/23 10/13/23
10:27 18:02
Troponin I 0.145 H* D 0.154 H*
Vital Signs and I&O:
Vital Signs
Temp Pulse Resp BP Pulse Ox
98.4 F 85 18 114/72 98
10/16/23 06:40 10/16/23 05:46 10/16/23 06:40 10/16/23 05:47 10/16/23 06:40
Vital Signs
Temp Pulse Resp BP Pulse Ox
98.4 F 85 18 114/72 98
10/16/23 06:40 10/16/23 05:46 10/16/23 06:40 10/16/23 05:47 10/16/23 06:40
Intake & Output
10/14/23 10/15/23 10/16/23 10/17/23
06:59 06:59 06:59 06:59
Intake Total 540 / 540 260 / 260 714 / 714
Output Total 250 / 250 600 / 600 3375 / 3375
Balance 290 / 290 -340 / -340 -2661 / -2661
Physical Exam
Physical Exam
GEN: AAOx3
HEENT: MMM
LUNGS: No audible wheeze
CV: SR on tele
ABD: ND
EXT: Trace B/L LE edema.
NEURO: Gross non-focal
SKIN: No rash
[2023-10-16 10:24] LABS: Glycohemoglobin (HgbA1c) 6.1 % (4.0-5.6)
--- NOTE | 2023-10-16 10:26 | PTCARENOTE ---
Received patient this morning oob in his room. IV heparin restarted at 0800 as per protocol at 1400 units/hr and IV milrinone infusing at 3.5ml/hr. Patient sent for cardiac MRI, ok to place both drips on hold for MRI as per Dr. Marshall.
[2023-10-16] MEDS: LEXAPRO 15 MG PO (12:19)
[2023-10-16] MEDS: MAGNESIUM OXIDE 500 MG PO (12:20)
[2023-10-16] MEDS: LOW STRENGTH ASPIRIN 81 MG PO (12:20)
--- NOTE | 2023-10-16 12:33 | PTCARENOTE ---
Patient returned from MRI at 1145, seen by cardiology and permitted to shower. Placed back on monitor, report given to the dental laboratory assistant. Patient taken for RHC and swan placement. Will transfer to 2265 post cath.
--- NOTE | 2023-10-16 13:53 | PTCARENOTE ---
Received pt from industrial laborer team. AAO x 3 laying in the bed, states hes very relaxed at the moment. SR w/ PVC's at present. RT IJ sheath with swan floated to 52 cm. Leveled, recalibrated and flushed. 88% RA placed on 2 L NC while sleepy.. Lungs
clear but decreased bilaterally in the bases. Abdomen benign. Pulses palpable. Plan for day discussed.
--- NOTE | 2023-10-16 13:57 | ITS.CL.CATH ---
Applications Sales Consultant - Catheterization
Cardiac Catheterization
Procedure Report:
RIGHT HEART CATHETERIZATION
Date of Procedure: October 16, 2023
Referring: Bindu Marshall MD, FACC, [facility]
INDICATION: Assess invasive hemodynamics and help guide therapy.
Hemodynamics (mmHg):
RA (m) : 16
RV (s/d,m) : 47/15, 21
PA (s/d, m) : 48/26, 35
PCWP (m) : 28
PA saturation: 49.3% on room air
AO saturation: 97% on room air
Cardiac Output : 2.59 L/min
Cardiac Index : 1.19 L/min/m-2
Systemic vascular resistance: 2100 dsc^(-5)
Pulmonary vascular resistance: 2.70 schulz unit
Heart rate: 80 bpm
Noninvasive blood pressure: 111/68, mean of 84 mmHg
RADIATION SUMMARY: Fluoro Time (min): 1.4, Dose (mGy): 18.61, DAP (Gy.cm2) : 2.9
CONCLUSION:
1. [place]-Abe catheter was left in place via right IJ access to help guide therapy.
2. Significantly elevated right and left-sided filling pressures with reduced cardiac output in the setting of elevated systemic vascular resistance.
Bindu Marshall MD, FACC, [facility]
[2023-10-16] MEDS: COZAAR 25 MG PO (14:12)
[2023-10-16] MEDS: LASIX IV (14:12)
[2023-10-16] MEDS: LASIX 80 MG IV (15:05)
[2023-10-16 15:07] LABS: Lyme Antibody Screen, EIA Negative (Negative)
--- NOTE | 2023-10-16 16:30 | PTCARENOTE ---
Resting in bed, no complaints. MVO2 obtained and results reported to DR Marshall. Voiding clear yellow urine. 2 L NC 95-96%. Assessment unchanged from prior. VSS
[2023-10-16 16:46] LABS: Mixed Venous O2 Saturation 59.6 %
[2023-10-16] MEDS: CRESTOR 20 MG PO (17:16)
[2023-10-16] MEDS: HEPARIN 25000 UNITS/250 ML IV (17:17)
--- NOTE | 2023-10-16 18:09 | W.PN.HOSP.TC ---
Addendum entered and electronically signed by Rowena Judd MD 10/16/23 18:53:
I saw and evaluated the patient independently. I reviewed the resident�s note and agree with findings and plan as documented by Dr. Fleming.
GENERAL: well developed, well nourished, male in no apparent distress
HEENT: NC/AT--no O2 requirements--now with [place] Abe cath in right neck
HEART: regular rate and rhythm, +S1, +S2, faint 1/6 ISAAC
LUNGS : clear to auscultation bilaterally
ABDOM: soft, nontender, nondistended, + bowel sounds
EXT: no cyanosis, clubbing, edema
NEUROLOGIC: grossly intact
Acute Mixed ischemic and nonischemic cardiomyopathy with severely reduced LV systolic function (LVEF 10% by echo) and cardiac output, consistent with cardiogenic shock--s/p cardiac cath with findings (100% chronic total occlusion of mid LAD at the
level of the diagonal branch with eccentric 70% ostial diagonal stenosis and left to left collaterals)--better with diuresis but still with volume overload--Echo with decreased EF and apical clot--apprec cards--cont diuresis, I/Os, daily
weights---CT scan of the chest PE protocol negative for pulmonary embolism. Moderate to severe cardiomegaly. Pulmonary edema--pt had right heart cath with [place] left in--cont milrinone for ionotropic support and to augment diuresis-- cardiac MRI
reviewed with findings of old infarcts, clot, decreased EF etc...--apprec CT surgery--cont IV heparin
Abnormal troponin--likely nonischemic myocardial injury from excess volume--trended downward--cont asa--apprec cards--ECHO as noted
anxiety--cont escitalopram 15 mg daily per pt
code status --Full code
DVT prophylaxis -- on IV heparin
Original Note:
Today's Communication/Plan
-
Continue milrinone aspirin and heparin-start losartan-continue to monitor clinically-- continue IV diuresis
Assessment / Plan
Assessment / Plan
pt is a 68 year old male
Exertional SOB and peripheral edema: symptoms since but got worse from 2 weeks ago--CT scan of the chest: negative for pulmonary embolism. Moderate to severe cardiomegaly. Pulmonary edema. With reflux of contrast to IVC and hepatic veins,
suggestion of elevated right heart pressures. Small amount of free fluid. Nonspecific lymphadenopathy. Echo--EF down to 10% with global hypokinesis, laminated apical LV thrombus, stage 3 diastolic dysfunction and moderate to severe MR--cath
showed 100% chronic total occlusion of mid LAD-- appreciate cardiology consult--continue IV Lasix to 80 twice daily. continue low-dose milrinone and aspirin. Started losartan 25 daily. cardiac MRI and right heart catheterization done--Significantly
elevated right and left-sided filling pressures with reduced cardiac output in the setting of elevated systemic vascular resistance--CT surgery has met with patient and would consider CABG & mitral valve surgery if MR persist despite treatment.
Will continue IV heparin for now with LV thrombus. Once the [place]-Abe catheter is discontinued will transition over to warfarin. PFT done.
Abnormal troponin--likely nonischemic myocardial injury from excess volume--trended downward
Recent diagnosis of anxiety--cont escitalopram 15 mg daily per pt
DVT prophylaxis: heparin
code status --Full code
Subjective/Interval History
-
Date of Service: October 16, 2023
Patient is feeling good clinically--he could get enough sleep last night without any interruption of shortness of breath or chest pain--he feels much better than when he came to the hospital
Objective Data
-
Labs:
Laboratory Results
10/16/23 10/16/23 10/16/23
05:55 14:00 23:59
APTT 136.8 H Cancelled Pending
Sodium 134 L
Potassium 4.0
Chloride 100
Carbon Dioxide 27
BUN 25 H
Creatinine 1.1
Glucose 94
Calcium 9.4
Total Bilirubin 1.0
AST 22
ALT 20
Alkaline Phosphatase 67
Vital Signs:
Vital Signs
Temp Pulse Resp BP Pulse Ox
97.7 F 79 14 114/67 97
10/16/23 15:55 10/16/23 17:00 10/16/23 17:00 10/16/23 17:00 10/16/23 17:00
I&O
10/15/23 10/16/23 10/17/23
06:59 06:59 06:59
Intake Total 260 / 260 714 / 714 486.6 / 486.6
Output Total 600 / 600 3375 / 3375 1300 / 1300
Balance -340 / -340 -2661 / -2661 -813.4 / -813.4
Review of Systems
-
History Source: Patient
All other systems: Reviewed and negative
Physical Exam
-
General: Well Developed, Well Nourished and No Apparent Distress
HEENT: Normocephalic and Atraumatic
Respiratory: Clear to Auscultation
Cardiac: Other (SR on tele)
GI: Soft, Nontender and Nondistended
Genito-urinary: No Costovertebral Tender
Musculoskeletal: No Clubbing and No Cyanosis
Skin: Warm
Neuro: Awake, Alert, Oriented and AO x 3
Psych: Calm
Data Reviewed
-
Total Time Spent with Patient (in minutes): 20
--- NOTE | 2023-10-16 19:00 | PTCARENOTE ---
report received from previous RN, walking rounds done. pt in bed, family @ bedside. pt AAOx4. pt denies any pain. Heparin gtt infusing @ 1400u per protocol. Milrinone gtt infusing @ 0.125mcg per orders. SR w PVCs on monitor, HR 80's. B/L radial and
DP pulses palpable. heart tones clear. RIJ sheath + [place] intact w KVO infusing. last CI 1.42. PAP ~40s/20s. CVP ~8. B/L breath sounds present. POX 95% on 2LNC. pt voids in urinal without difficulty. bowel sounds present. skin CDI. PIV x2 intact and
patent. see worklist for full assessment, VS, and interventions. pt resting comfortably.
[2023-10-16 22:51] LABS: Ionized Calcium 1.12 mMOL/L (1.15-1.33)
--- NOTE | 2023-10-16 23:00 | PTCARENOTE ---
pt VSS, no changes in assessment. pt oriented x4, no c/o pain. SR w PVCs on monitor, orders received per CTPA for labs--K+, Mg+, and iCal d/t ectopy. labs drawn and sent. POX 95-98% on 2LNC. last CI 1.73. Milrinone gtt maintained @ 0.125mcg. Heparin
maintained @ 1400u per protocol. pt sleeping between care.
[2023-10-16 23:05] LABS: APTT 77.3 Sec (23.4-35.0)
[2023-10-16 23:22] LABS: Magnesium 1.8 mg/dl (1.6-2.3); Potassium 3.7 mmol/L (3.5-5.1)
[2023-10-16] MEDS: CALCIUM CHLORIDE 10% SYRINGE 60 MG IV (23:32)
[2023-10-16] MEDS: KCL 100 IV (23:32)
[2023-10-17] VITALS (23 sets, daily range): BP systolic 98–147; BP diastolic 59–107; BMI 24.3
[2023-10-17] MEDS: MAGNESIUM SULFATE 102 GRAMS IV (00:18)
--- NOTE | 2023-10-17 03:00 | PTCARENOTE ---
no changes in assessment, pt VSS. SR w PVCs. POX 97% on 2LNC. Milrinone and Heparin gtts maintained. last CI 2.07. pt sleeping between care.
[2023-10-17 05:33] LABS: APTT 49.2 Sec (23.4-35.0)
[2023-10-17 06:16] LABS: ALT (SGPT) 18 U/L (0-50); AST (SGOT) 24 U/L (17-59); Albumin 3.5 g/dl (3.5-5.0); Alkaline Phosphatase 76 U/L (38-126); Blood Urea Nitrogen 25 mg/dl (9-20); Calcium 9.7 mg/dl (8.4-10.2); Carbon Dioxide 30 mmol/L (22-30); Chloride 100 mmol/L (98-107); Estimated Creatinine Clearance 79 ml/min; Glucose 97 mg/dl (70-99); Magnesium 2.1 mg/dl (1.6-2.3); Potassium 4.7 mmol/L (3.5-5.1); Sodium 134 mmol/L (135-145); Total Protein 5.8 g/dl (6.3-8.2); eGFR > 60.00
[2023-10-17] MEDS: LOW STRENGTH ASPIRIN 81 MG PO (07:52)
[2023-10-17] MEDS: MAGNESIUM OXIDE 500 MG PO (07:52)
[2023-10-17] MEDS: COZAAR 25 MG PO ×2 (07:52→10:36)
[2023-10-17] MEDS: LEXAPRO 15 MG PO (07:52)
[2023-10-17] MEDS: LASIX 80 MG IV ×2 (07:53→15:57)
--- NOTE | 2023-10-17 08:17 | PTCARENOTE ---
Received handoff report from loan adviser RN. AAOx3; Pt resting comfortably in bed and denies any pain; Trace edema throughout; Sinus rhythm w/ PVCs on monitor; Lungs CTA - pt denies any SOB at this time; RIJ [place] @ [address] - lines
calibrated, flushed, and leveled; CI obtained at 1.54; IV Milirinone and IV heparin infusing - see flowsheet for additional details. IV Lasix given to pt.
[2023-10-17 08:49] LABS: Hematocrit 45.8 % (39.0-52.0); Hemoglobin 15.9 g/dL (13.0-18.0); Mean Corp Hgb Conc. 34.7 g/dL (33.0-37.0); Mean Corpuscular Hgb 33.4 pg (27.0-31.0); Mean Corpuscular Volume 96.2 fL (80.0-94.0); Mean Platelet Volume 12.1 fL (7.4-10.4); Platelet Count 116 10^3/uL (130-400); Red Blood Cell Count 4.76 10^6/uL (4.70-6.10); Red Cell Dist. Width 14.2 % (11.5-14.5); White Blood Cell Count 7.3 10^3/uL (4.8-10.8)
[2023-10-17 10:10] LABS: Mixed Venous O2 Saturation 54.8 %
[2023-10-17] MEDS: FARXIGA 10 MG PO (10:36)
--- NOTE | 2023-10-17 11:43 | PTCARENOTE ---
Remains SR w/ pvc's. RT IJ swan maintained. Placed back on 2 L NC while napping d/t sleep apnea with significant pulse ox drop. VSS. Assessment otherwise unchanged from prior.
--- NOTE | 2023-10-17 12:06 | W.PN.HOSP.TC ---
Addendum entered and electronically signed by Syl Fleming MD, Resident 10/18/23 07:31:
elevated troponin likely Type II ND.
Addendum entered and electronically signed by Rowena Judd MD 10/17/23 13:59:
I saw and evaluated the patient independently. I reviewed the resident�s note and agree with findings and plan as documented by Dr. Fleming.
GENERAL: well developed, well nourished, male in no apparent distress
HEENT: NC/AT--no O2 requirements--now with [place] Abe cath in right neck
HEART: regular rate and rhythm, +S1, +S2, faint 1/6 ISAAC
LUNGS : clear to auscultation bilaterally
ABDOM: soft, nontender, nondistended, + bowel sounds
EXT: no cyanosis, clubbing, edema
NEUROLOGIC: grossly intact
Acute Mixed ischemic and nonischemic cardiomyopathy with severely reduced LV systolic function (LVEF 10% by echo) and cardiac output, consistent with cardiogenic shock--s/p cardiac cath with findings (100% chronic total occlusion of mid LAD at the
level of the diagonal branch with eccentric 70% ostial diagonal stenosis and left to left collaterals)--better with diuresis but still with volume overload--Echo with decreased EF and apical clot--apprec cards--cont diuresis, I/Os, daily
weights---CT scan of the chest PE protocol negative for pulmonary embolism. Moderate to severe cardiomegaly. Pulmonary edema--pt had right heart cath with [place] left in--cont milrinone for ionotropic support and to augment diuresis-- cardiac MRI
reviewed with findings of old infarcts, clot, decreased EF etc...--apprec CT surgery--cont IV heparin--losartan added and increased by cards--hopefully d/c [place] in AM--numbers improved
Abnormal troponin--likely nonischemic myocardial injury from excess volume--trended downward--cont asa--apprec cards--ECHO as noted
anxiety--cont escitalopram 15 mg daily per pt
code status --Full code
DVT prophylaxis -- on IV heparin
Original Note:
Today's Communication/Plan
-
Continue milrinone, aspirin, heparin--consider advancing losartan to 50--continue to monitor cardiac parameters through right heart cath
Assessment / Plan
Assessment / Plan
pt is a 68 year old male
Exertional SOB and peripheral edema: symptoms since but got worse from 2 weeks ago--CT scan of the chest: negative for pulmonary embolism. Moderate to severe cardiomegaly. Pulmonary edema. With reflux of contrast to IVC and hepatic veins,
suggestion of elevated right heart pressures. Small amount of free fluid. Nonspecific lymphadenopathy. Echo--EF down to 10% with global hypokinesis, laminated apical LV thrombus, stage 3 diastolic dysfunction and moderate to severe MR--cath
showed 100% chronic total occlusion of mid LAD-- appreciate cardiology consult--continue IV Lasix to 80 twice daily. continue low-dose milrinone and aspirin. Consider advancing losartan to 50 daily. cardiac MRI and right heart catheterization
done--CI & CO stand at 1.5 and 3.34, respectively--CT surgery has met with patient and would consider CABG & mitral valve surgery if MR persist despite treatment. Will continue IV heparin for now with LV thrombus. Once the [place]-Abe catheter is
discontinued will transition over to warfarin. PFT done.
Abnormal troponin--likely nonischemic myocardial injury from excess volume--trended downward
Recent diagnosis of anxiety--cont escitalopram 15 mg daily per pt
DVT prophylaxis: heparin
code status --Full code
Subjective/Interval History
-
Date of Service: October 17, 2023
Patient is very pleasant and is very grateful for the clinical improvement--does not report any shortness of breath or chest pain overnight--notes remarkable decreased swelling of lower extremities
Objective Data
-
Labs:
Laboratory Results
10/17/23 10/17/23 10/17/23
05:08 08:42 12:00
WBC 7.3
Hgb 15.9
Hct 45.8
Plt Count 116 L
APTT 49.2 H Pending
Sodium 134 L
Potassium 4.7 D
Chloride 100
Carbon Dioxide 30
BUN 25 H
Creatinine 1.1
Glucose 97
Calcium 9.7
Total Bilirubin 1.0
AST 24
ALT 18
Alkaline Phosphatase 76
Vital Signs:
Vital Signs
Temp Pulse Resp BP Pulse Ox
97.8 F 87 21 116/82 96
10/17/23 11:38 10/17/23 11:38 10/17/23 11:38 10/17/23 11:00 10/17/23 11:38
I&O
10/16/23 10/17/23 10/18/23
06:59 06:59 06:59
Intake Total 714 / 714 676.9 / 676.9 597.2 / 597.2
Output Total 3375 / 3375 2950 / 2950 2400 / 2400
Balance -2661 / -2661 -2273.1 / -2273.1 -1802.8 / -1802.8
Review of Systems
-
History Source: Patient
All other systems: Reviewed and negative
Physical Exam
-
General: Well Developed and No Apparent Distress
HEENT: Other (now with [place] Abe cath in right neck)
Respiratory: Clear to Auscultation
Cardiac: Regular Rhythm and S1/S2
GI: Soft, Nontender and Nondistended
Genito-urinary: No Costovertebral Tender
Musculoskeletal: No Clubbing, No Cyanosis and No Edema
Skin: Warm
Neuro: Awake, Alert, Oriented and AO x 3
Psych: Calm
Data Reviewed
-
Total Time Spent with Patient (in minutes): 20
[2023-10-17] MEDS: HEPARIN 25000 UNITS/250 ML IV (12:45)
--- NOTE | 2023-10-17 13:03 | W.PN.CARDCBS ---
Addendum entered and electronically signed by Bindu Marshall MD 10/18/23 08:12:
Late note entry, patient seen and assessed in CVICU yesterday
I saw and examined the patient.
The Director Of Financial Planning's note was reviewed and I agree with the note.
Comment: Overall doing well with improved symptoms. Status post cardiac MRI this morning without evidence of any infiltrative process or non-compaction. Severe hypokinesis noted with regions of old infarction including areas of thinning and a small
focus of enhancement within the LV apex compatible with apical thrombus.
Mixed venous sats a bit improved on milrinone and GDMT, CI around 1.6
On exam patient is well-appearing in no acute distress, A and O x 3, regular rate, normal S1 and S2, fine bibasilar Rales, elevated JVD, abdomen is soft, nontender, nondistended with active bowel sounds, warm extremities
Telemetry with sinus rhythm and frequent PVCs and short runs of NSVT.
Recommendations:
1. Continue low-dose milrinone with uptitration of afterload reducing medication such as losartan and add SGLT-2i. If tolerating, would consider switching to entresto tomorrow and later add aldactone. Hold off on BB for now in setting of low CI.
Overall goal to attempt weaning off inotrope as able.
2. Continued IV diuresis.
3. Continued IV heparin for now for known LV thrombus. Once the [place]-Abe catheter is discontinued we will transition over to warfarin.
Bindu Marshall MD, [facility], [facility]
Original Note:
Today's Communication / Plan
-
Milrinone and Heparin gtt renewed
Losartan dose increased
Impression / Plan
-
PCP: Dr. Tom Hoang
Cardiology: None prior to admission
Impression:
Presented 10/12/2023 with acute shortness of breath
Acute HF severely reduced ejection fraction EF
milrinone gtt started 10/14/23, RHC repeated 10/16/23
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
Cardiogenic shock
Elevated troponin, peak at 0.202
Type 2 AL
Coronary artery disease
Chronic total occlusion of mid LAD by cath 10/14/23
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
Moderate to severe mitral regurgitation
PVCs
Depression
Thrombocytopenia
Cardiac catheterization 10/14/2023:
LM: LAD: chronic total occlusion mid with left to left collaterals. Ostial diagonal 70% stenosis. LCX: Luminal irregularities: RCA: Luminal irregularities.
RA (m) : 12; RV (s/d,m) : 42/11, 17; PA (s/d, m) : 41/24, 31; PCWP (m) : 31;
PA saturation: 49.4% on 4 L of oxygen via nasal cannula
AO saturation: 98.3% on 4 L of oxygen via nasal cannula
RA saturation: 53.1% on 4 L of oxygen via nasal cannula.
Cardiac Output : 2.36 L/min
Cardiac Index : 1.06 L/min/m-2
Systemic vascular resistance: 2547 dsc^(-5)
Pulmonary vascular resistance: [ ] schulz unit
Heart rate: 60 bpm
AO (s/d) : 102/79
Aortic valve was not crossed to obtain LVEDP in the setting of known left ventricular thrombus.
Repeat RHC 10/16/23:
RA (m) : 16, RV (s/d,m) : 47/15, 21, PA (s/d, m) : 48/26, 35, PCWP (m) : 28
PA saturation: 49.3% on room air
AO saturation: 97% on room air
Cardiac Output : 2.59 L/min
Cardiac Index : 1.19 L/min/m-2
Systemic vascular resistance: 2100 dsc^(-5)
Pulmonary vascular resistance: 2.70 schulz unit
Heart rate: 80 bpm
Noninvasive blood pressure: 111/68, mean of 84 mmHg
Echo 10/14/23: EF 10%. Severely dilated LV. Severely reduced LV function with global hypokinesis. Anteroseptal, septal and apical akinesis. Stage III diastolic dysfunction with restrictive filling pattern and increased filling pressures.
Laminated LV apical thrombus. Severely dilated LA. Moderate to severe MR. Mild TR. PAP 39 mmHg. Mildly dilated aortic root sinus of Valsalva 3.9 cm
Cardiac MRI 10/16/23: There are areas of thinning and postcontrast enhancement of the left ventricle compatible with regions of old infarction, small focus of not enhancement within the LV apex compatible with apical thrombus, no evidence of
infiltrative process, moderate MR and TR
Plan:
-No change in recorded weight for 10/17/23, but he is negative 2 L by I&Os.
-Repeat RHC 10/16/23 noted above showed significantly elevated right and left-sided filling pressures with reduced cardiac output in the setting of elevated SVR. Symptomatically he continues to feel overall improved compared to admission.
-Milrinone gtt continues at 0.125 mcg/kg/min that was started 10/14/23 and was renewed for 10/17/23.
-Mixed venous blood gas 54.8 and repeat pending for 1600 on 10/17/23
-EF was 10% by echo 10/14/23 and patient was agreeable to an echo that showed a [employer] LAD, but CM was out of proportion to CAD so cardiac MRI ordered that showed no evidence of infiltrative process, but concern for areas of old infarction.
-Coreg had been started on admission, but was stopped following RHC and initiation of milrinone
-New to losartan and dose increased to 50 mg daily on 10/17/23
-Farxiga 10 mg daily added 10/17/23. Consult to CM to check on cost
-Troponin peaked at 0.202 and will be managed as a nonischemic myocardial injury Troponin elevation due to acute HF.
-Remains on Heparin gtt for LV thrombus seen on echo and MRI. Eventually bridge to warfarin. Labs reviewed by me 10/17/23 and Plt # is stable at 116 (116 to 129 to 116 since 10/15/23)
HPI: 68-year-old male with minimal past medical history presents to [facility] with several months of orthopnea, PND and dyspnea. The symptoms have been ongoing since June and have been slowly worsening. Last night he could not breathe
while lying flat and felt worse. He has noticed edema and weight gain in his legs. He denies any chest pains although he does get occasional fullness in the center of his chest. He denies any history of hypertension, diabetes or hyperlipidemia.
He stopped drinking several months ago where he was drinking approximately 12 beers a week. Denies any recent illnesses or URIs. He has no fevers or chills. He has no coughing or wheezing. He does not smoke. Does use occasional recreational
marijuana. He has no palpitations or syncope.
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
Subjective
Date of Service: October 17, 2023
Feels well, no chest pain or SOB at rest
Objective
Labs:
10/17/23 08:42
10/17/23 05:08
Labs
Hgb 15.9 g/dL (13.0-18.0) 10/17/23 08:42
Hct 45.8 % (39.0-52.0) 10/17/23 08:42
Plt Count 116 10^3/uL (130-400) L 10/17/23 08:42
PT 16.3 Sec (11.4-14.6) H 10/15/23 03:47
PT Cancelled 10/15/23 03:47
INR 1.33 10/15/23 03:47
INR Cancelled 10/15/23 03:47
APTT 49.2 Sec (23.4-35.0) H 10/17/23 05:08
Sodium 134 mmol/L (135-145) L 10/17/23 05:08
Potassium 4.7 mmol/L (3.5-5.1) D 10/17/23 05:08
BUN 25 mg/dl (9-20) H 10/17/23 05:08
Creatinine 1.1 mg/dL (0.7-1.3) 10/17/23 05:08
Glucose 97 mg/dl (70-99) 10/17/23 05:08
Vital Signs and I&O:
Vital Signs
Temp Pulse Resp BP Pulse Ox
97.8 F 87 21 116/82 96
10/17/23 11:38 10/17/23 11:38 10/17/23 11:38 10/17/23 11:00 10/17/23 11:38
Vital Signs
Temp Pulse Resp BP Pulse Ox
97.8 F 87 21 116/82 96
10/17/23 11:38 10/17/23 11:38 10/17/23 11:38 10/17/23 11:00 10/17/23 11:38
Intake & Output
10/15/23 10/16/23 10/17/23 10/18/23
06:59 06:59 06:59 06:59
Intake Total 260 / 260 714 / 714 676.9 / 676.9 626.5 / 626.5
Output Total 600 / 600 3375 / 3375 2950 / 2950 2850 / 2850
Balance -340 / -340 -2661 / -2661 -2273.1 / -2273.1 -2223.5 / -2223.5
Physical Exam
Physical Exam
GEN: AAOx3
HEENT: MMM
LUNGS: No audible wheeze
CV: SR on tele
ABD: ND
EXT: Trace B/L LE edema.
NEURO: Gross non-focal
SKIN: No rash
[2023-10-17 13:18] LABS: APTT 90.1 Sec (23.4-35.0)
--- NOTE | 2023-10-17 15:58 | PN.CDI ---
CDI
- -
CDI:
Physician Documentation Request
Admit Date: 10/13/23 01:29
Dear Doctor Courtney,
Patient admitted with Acute Mixed ischemic and nonischemic cardiomyopathy with severely reduced LV systolic function
Hospitalist progress notes states 'Abnormal troponin--likely nonischemic myocardial injury from excess volume'
Cardiology notes state 'elevated troponin, peak at 0.202. Type 2 CA'
In an attempt to clarify potential conflicting documentation, please clarify the etiology of the elevated troponin:
Non ischemic myocardial injury
Type II CA.
Other
Use of terms such as suspected, likely, concern for, or probable (associated with a specific diagnosis that is being evaluated, monitored, or treated as if it exists) are acceptable and can be coded in the inpatient setting, when documented at the
time of discharge.
Thank you,
Giulia Dutta RN, BSN
CDI Specialist
tiger text
Please use your independent medical judgment in providing your response.
--- NOTE | 2023-10-17 16:07 | CM ---
Priced Farxiga thru patient's RX plan, [employer] [phone]
Estimated cost of Farxiga will be $88/90 d supply or $66/ 30 d supply once yearly deductible of $545 is met.
Prior to deductible being met, cost will be $489.
I can provide a free 30 d coupon.
I updated PA-C.
Met w/ patient at bedside. Reviewed estimated cost of Farxiga. Patient is aware of cost.
[2023-10-17] MEDS: PRIMACOR 20 MG 100 IV (16:09)
[2023-10-17 16:10] LABS: Mixed Venous O2 Saturation 52.3 %
--- NOTE | 2023-10-17 17:00 | PTCARENOTE ---
VSS. CI 1.72 with last check. MVO2 sent and resulted. Pt denies complaint. NO SOB noted. RA while awake. 96%. Appetite good, Voiding large amounts of yellow urine. Assessment unchanged from prior.
[2023-10-17] MEDS: CRESTOR 20 MG PO (18:05)
--- NOTE | 2023-10-17 19:00 | PTCARENOTE ---
report received from previous RN, walking rounds done. pt in bed, AAOx4. pt denies any pain. Heparin gtt infusing @ 1600u per protocol. Milrinone gtt infusing @ 0.125mcg per orders. SR w PVCs on monitor, HR 80's. B/L radial and DP pulses palpable.
heart tones clear. RIJ sheath + [place] intact w KVO infusing. last CI 1.72. PAP ~40s/20s. CVP ~8. B/L breath sounds present. POX 95% on 2LNC. pt voids in urinal without difficulty. bowel sounds present. skin CDI. PIV x2 intact and patent. see worklist
for full assessment, VS, and interventions. pt resting comfortably.
[2023-10-17 21:07] LABS: APTT 103.2 Sec (23.4-35.0)
--- NOTE | 2023-10-17 23:00 | PTCARENOTE ---
no changes in assessment, VSS. SR PVCs. 2LNC. Milrinone gtt and Heparin gtt maintained. pt sleeping between care.
[2023-10-18] VITALS (34 sets, daily range): BP systolic 75–143; BP diastolic 56–98; BMI 24.1
--- NOTE | 2023-10-18 03:00 | PTCARENOTE ---
no changes in assessment, VSS. SR PVCs. 2LNC. Milrinone gtt and Heparin gtt maintained. pt sleeping between care.
[2023-10-18 06:16] LABS: Mean Corp Hgb Conc. 34.7 g/dL (33.0-37.0); Mean Corpuscular Hgb 33.3 pg (27.0-31.0); Mean Corpuscular Volume 95.9 fL (80.0-94.0); Mean Platelet Volume 12.3 fL (7.4-10.4); Platelet Count 110 10^3/uL (130-400); Red Blood Cell Count 5.11 10^6/uL (4.70-6.10); White Blood Cell Count 7.3 10^3/uL (4.8-10.8)
[2023-10-18 06:29] LABS: APTT 93.5 Sec (23.4-35.0)
[2023-10-18 07:02] LABS: ALT (SGPT) 20 U/L (0-50); AST (SGOT) 34 U/L (17-59); Albumin 3.8 g/dl (3.5-5.0); Alkaline Phosphatase 83 U/L (38-126); Blood Urea Nitrogen 23 mg/dl (9-20); Calcium 9.1 mg/dl (8.4-10.2); Carbon Dioxide 30 mmol/L (22-30); Chloride 97 mmol/L (98-107); Estimated Creatinine Clearance 72 ml/min; Glucose 117 mg/dl (70-99); Potassium 3.9 mmol/L (3.5-5.1); Sodium 134 mmol/L (135-145); Total Bilirubin 1.2 mg/dl (0.2-1.3); Total Protein 6.1 g/dl (6.3-8.2); eGFR > 60.00
--- NOTE | 2023-10-18 08:30 | W.PN.HOSP.TC ---
Addendum entered and electronically signed by Rowena Judd MD 10/18/23 13:16:
I saw and evaluated the patient independently. I reviewed the resident�s note and agree with findings and plan as documented by Dr. Fleming.
GENERAL: well developed, well nourished, male in no apparent distress
HEENT: NC/AT--no O2 requirements--now with [place] Abe cath in right neck
HEART: regular rate and rhythm, +S1, +S2, faint 1/6 ISAAC
LUNGS : clear to auscultation bilaterally
ABDOM: soft, nontender, nondistended, + bowel sounds
EXT: no cyanosis, clubbing, edema
NEUROLOGIC: grossly intact
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
level of the diagonal branch with eccentric 70% ostial diagonal stenosis and left to left collaterals)--better with diuresis but still with volume overload--Echo also with apical clot--apprec cards--cont diuresis, I/Os, daily weights---CT scan of
the chest PE protocol negative for pulmonary embolism. Moderate to severe cardiomegaly. Pulmonary edema--pt had right heart cath with [place] left in--cont milrinone for ionotropic support and to augment diuresis-- cardiac MRI reviewed with findings
of old infarcts, clot, decreased EF etc...--apprec CT surgery--cont IV heparin--losartan added and increased by cards, considering switch to Entresto and/or aldactone--unclear endpoint
Abnormal troponin--likely type 2 NH--trended downward--cont asa--apprec cards--ECHO as noted
anxiety--cont escitalopram 15 mg daily per pt
code status --Full code
DVT prophylaxis -- on IV heparin--watch platelet count--will check HIT assay
Original Note:
Today's Communication/Plan
-
Cont low-dose milrinone, cont heparin and aspirin, cont diuresis and monitor BW, cont Losartan and potentially switch to Entresto and/or Aldactone if pt tolerates, cont monitoring CI through right heart cath, cont Farxiga
Assessment / Plan
Assessment / Plan
pt is a 68 year old male
Exertional SOB and peripheral edema: symptoms since [place] but got worse from 2 weeks ago--CT scan of the chest: negative for pulmonary embolism. Moderate to severe cardiomegaly. Pulmonary edema. With reflux of contrast to IVC and hepatic veins,
suggestion of elevated right heart pressures. Small amount of free fluid. Nonspecific lymphadenopathy. Echo--EF down to 10% with global hypokinesis, laminated apical LV thrombus, stage 3 diastolic dysfunction and moderate to severe MR--cath
showed 100% chronic total occlusion of mid LAD--
appreciate cardiology consult--pt lost almost 1 kilo overnight--continue IV Lasix 80 twice daily. continue low-dose milrinone and aspirin. Cardiac MRI and right heart catheterization done--CT surgery has met with patient and would consider CABG &
mitral valve surgery if MR persist despite treatment. Continue IV heparin for now with LV thrombus. Once the [place]-Abe catheter is discontinued will transition over to warfarin. PFT normal. Losartan advanced to 50 daily and Farxiga started. Per
cards consult, might consider switching to Entresto and later Aldactone if patient tolerates. CI & CO slightly downtrended to 1.2 and 2.64, respectively
Cardiac MRI: Without evidence of any infiltrative process or non-compaction. Severe hypokinesis noted with regions of old infarction including areas of thinning and a small focus of enhancement within the LV apex compatible with apical thrombus.
Abnormal troponin--likely Type 2 NH-trended downward
Recent diagnosis of anxiety--cont escitalopram 15 mg daily per pt
DVT prophylaxis: heparin
code status --Full code
Subjective/Interval History
-
Date of Service: October 18, 2023
Patient complains of not being able to sleep comfortably since 4am because of the [employer] issues. Otherwise, he does not complain of any chest pain or SOB that contributed to his inability to sleep well. He is currently using nasal O2. Complains
of the [place]-Abe not being comfortable on his neck. Feels he has improved clinically since admission.
Objective Data
-
Labs:
Laboratory Results
10/17/23 10/18/23
20:48 05:50
WBC 7.3
Hgb 17.0
Hct 49.0
Plt Count 110 L
APTT 103.2 H 93.5 H
Sodium 134 L
Potassium 3.9
Chloride 97 L
Carbon Dioxide 30
BUN 23 H
Creatinine 1.2
Glucose 117 H
Calcium 9.1
Total Bilirubin 1.2
AST 34
ALT 20
Alkaline Phosphatase 83
Vital Signs:
Vital Signs
Temp Pulse Resp BP Pulse Ox
98.0 F 100 14 122/84 98
10/18/23 05:00 10/18/23 06:45 10/18/23 06:45 10/18/23 06:00 10/18/23 06:30
I&O
10/17/23 10/18/23 10/19/23
06:59 06:59 06:59
Intake Total 676.9 / 676.9 1225.4 / 1225.4
Output Total 2950 / 2950 5750 / 5750
Balance -2273.1 / -2273.1 -4524.6 / -4524.6
Review of Systems
-
History Source: Patient
All other systems: Reviewed and negative
Physical Exam
-
General: Well Developed and Comfortable
HEENT: Normocephalic and Other ([place]-Abe cath in right neck)
Respiratory: Clear to Auscultation
Cardiac: Regular Rhythm and S1/S2
GI: Soft, Nontender and Nondistended
Genito-urinary: No Costovertebral Tender
Musculoskeletal: No Clubbing, No Cyanosis and No Edema
Neuro: Awake, Alert, Oriented and AO x 3
Hematologic / Lymphatic: No Lymphadenopathy
Data Reviewed
-
Total Time Spent with Patient (in minutes): 15
--- NOTE | 2023-10-18 09:05 | PTCARENOTE ---
Report received from OMAR Mason. Pt assessed, VS and CO/CI done. Pt awake, alert, oriented x 4. Speech clear. Pt on room air. Sats 95%. BBS present. Slightly decreased to B bases. Pt on SR. [place] Abe catheter present. All lines levelled and zeroed.
Milrinone gtt at 0.125 mcg/kg/min. CI done and is 1.7. Heparin gtt running per orders. Goal PTT 73-111 seconds. Belly soft, nontender. Normoactive BS x 4. Pt voids clear, yellow urine. Sister present at bedside.
[2023-10-18] MEDS: COZAAR 50 MG PO (09:43)
[2023-10-18] MEDS: LEXAPRO 15 MG PO (09:44)
[2023-10-18] MEDS: LASIX 80 MG IV ×2 (09:44→16:06)
[2023-10-18] MEDS: FARXIGA 10 MG PO (09:44)
[2023-10-18] MEDS: MAGNESIUM OXIDE 500 MG PO (09:45)
[2023-10-18] MEDS: LOW STRENGTH ASPIRIN 81 MG PO (09:45)
[2023-10-18 10:36] LABS: Mixed Venous O2 Saturation 65.2 %
--- NOTE | 2023-10-18 12:14 | CM ---
CM following for DC planning needs.
Met w/ patient at bedside. He reports that he is feeling well. He is hopeful for DC by Saturday.
Reviewed estimated cost of catarino Mccain.
Plan is for home once medically stable without needs.
Will cont. to follow.
--- NOTE | 2023-10-18 12:20 | PTCARENOTE ---
Pt eating lunch. Remains in SR with occasional PVCs. Brother at bedside with pt.
--- NOTE | 2023-10-18 13:31 | CM ---
Priced Eliquis thru patient's insurance, .
Estimated cost of Eliquis after patient satisfies annual deductible is $140/mo.
Can provide a coupon for a free 30 d supply but would not qualify for ongoing coupons.
--- NOTE | 2023-10-18 14:18 | PTCARENOTE ---
Recheck of CI-1.89. Milrinone gtt decreased to 0.065 mcg/kg/min at 1415. Will recheck CI in 30 minutes.
--- NOTE | 2023-10-18 15:03 | W.PN.CARDCBS ---
Addendum entered and electronically signed by Wilbert Kincaid MD 10/18/23 16:19:
I saw and examined the patient.
The LINUX SUPPORT ENGINEER or PA's note was reviewed and I agree with the note.
Comment: General: Well developed, well nourished in NAD.
Neck: Supple, no JVD, HJR, carotids +2 B/L, no bruits bilaterally.
Heart: Non displaced PMI, RRR, no murmurs, No S3, S4, no rubs.
Lungs: Clear to auscultation bilaterally, no wheeze, rhonchi, rubs bilaterally,
normal expiratory phase.
Extremities: No clubbing, cyanosis or edema bilaterally.
Neuro: Grossly nonfocal, awake, alert and oriented x3.
He continues to feel very well. His cardiac index remained stable. Will try to wean Primacor off today and pull Lyme. He has had some ventricular ectopy which may be due to the [place]-Abe catheter. Will continue IV heparin and start Eliquis for
LV thrombus when catheter has been removed. Will start Coreg when Primacor has been discontinued. Would like to possibly change to Entresto at some point if blood pressure tolerates. Would consider Aldactone as well. Will recheck echocardiogram.
Hopefully LV function will improve and mitral valve surgery would not be needed. Discussed with patient and brothers at bedside as well as nursing.
Original Note:
Today's Communication / Plan
-
Attempt to wean Milrinone gtt
repeat limited echo
replete potassium
Impression / Plan
-
PCP: Dr. Tom Hoang
Cardiology: None prior to admission
Impression:
Presented 10/12/2023 with acute shortness of breath
Acute HF severely reduced ejection fraction EF
milrinone gtt started 10/14/23, RHC repeated 10/16/23
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
Cardiogenic shock
Elevated troponin, peak at 0.202
Type 2 NV
Coronary artery disease
Chronic total occlusion of mid LAD by cath 10/14/23
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
Moderate to severe mitral regurgitation
PVCs
Depression
Thrombocytopenia
Cardiac catheterization 10/14/2023:
LM: LAD: chronic total occlusion mid with left to left collaterals. Ostial diagonal 70% stenosis. LCX: Luminal irregularities: RCA: Luminal irregularities.
RA (m) : 12; RV (s/d,m) : 42/11, 17; PA (s/d, m) : 41/24, 31; PCWP (m) : 31;
PA saturation: 49.4% on 4 L of oxygen via nasal cannula
AO saturation: 98.3% on 4 L of oxygen via nasal cannula
RA saturation: 53.1% on 4 L of oxygen via nasal cannula.
Cardiac Output : 2.36 L/min
Cardiac Index : 1.06 L/min/m-2
Systemic vascular resistance: 2547 dsc^(-5)
Pulmonary vascular resistance: [ ] schulz unit
Heart rate: 60 bpm
AO (s/d) : 102/79
Aortic valve was not crossed to obtain LVEDP in the setting of known left ventricular thrombus.
Repeat RHC 10/16/23:
RA (m) : 16, RV (s/d,m) : 47/15, 21, PA (s/d, m) : 48/26, 35, PCWP (m) : 28
PA saturation: 49.3% on room air
AO saturation: 97% on room air
Cardiac Output : 2.59 L/min
Cardiac Index : 1.19 L/min/m-2
Systemic vascular resistance: 2100 dsc^(-5)
Pulmonary vascular resistance: 2.70 schulz unit
Heart rate: 80 bpm
Noninvasive blood pressure: 111/68, mean of 84 mmHg
Echo 10/14/23: EF 10%. Severely dilated LV. Severely reduced LV function with global hypokinesis. Anteroseptal, septal and apical akinesis. Stage III diastolic dysfunction with restrictive filling pattern and increased filling pressures.
Laminated LV apical thrombus. Severely dilated LA. Moderate to severe MR. Mild TR. PAP 39 mmHg. Mildly dilated aortic root sinus of Valsalva 3.9 cm
Cardiac MRI 10/16/23: There are areas of thinning and postcontrast enhancement of the left ventricle compatible with regions of old infarction, small focus of not enhancement within the LV apex compatible with apical thrombus, no evidence of
infiltrative process, moderate MR and TR
Plan:
-Presented 10/12/2023 with acute shortness of breath, weight gain and edema.
-Admitted w/ acute heart failure with severely reduced ejection fraction, EF 10%, proBNP 8640 with mixed ischemic and nonischemic cardiomyopathy out of proportion to coronary artery disease found on cardiac catheterization
-Cardiogenic shock with cardiac index of 1.06 on right heart catheterization 0n 10/14/23. Placed on IV milrinone at 0.125 mcg/kg/min 10/15/2023. Repeat RHC 10/16/23 noted above showed significantly elevated right and left-sided filling pressures with
reduced cardiac output in the setting of elevated SVR.
-Symptomatically he continues to feel overall improved compared to admission. Attempting to wean off Milrinone now on 0.0625 mcg/kg/min and feeling well.
-Weight is down 23 lbs overnight since admission and 2 lbs overnight. Current weight is 192 lbs. Continue IV Lasix to 80 mg twice daily. Patient was not taking a diuretic prior to admission.
-Potassium 3.9. Will replete.
-EF was 10% by echo 10/14/23 with LHC showing CREDIT AUTHORIZER LAD, but CM was out of proportion to CAD so cardiac MRI 10/16/23 ordered that showed no evidence of infiltrative process, but concern for areas of old infarction.
-Will repeat limited echo to reassess EF and MR with diuresis
-Coreg had been started on admission, but was stopped following RHC and initiation of milrinone
-New to losartan and dose increased to 50 mg daily on 10/17/23. If BP allows could consider Entresto plus or minus Aldactone if BP allows. CM consult for cost analysis
-Farxiga 10 mg daily added 10/17/23. CM estimated cost of Farxiga will be $88/90 d supply or $66/ 30 d supply once yearly deductible of $545 is met. Prior to deductible being met, cost will be $489.
-Troponin peaked at 0.202 and will be managed as a nonischemic myocardial injury Troponin elevation due to acute HF.
-Remains on Heparin gtt for LV thrombus seen on echo and MRI. Eventually bridge to warfarin vs Eliquis which some literature states can be used for LV thrombus and prevention of embolic events. Labs reviewed by me 10/18/23 and Plt # is stable at 110
(116 to 129 to 116 to 110 since 10/18/23)
-CT surgery saw pt in consultation for possible CABG x 1 and mitral valve repair/replacement. Plan now is to continue aggressive medical management w/ GDMT with mixed CM and HF.
HPI: 68-year-old male with minimal past medical history presents to [facility] with several months of orthopnea, PND and dyspnea. The symptoms have been ongoing since June and have been slowly worsening. Last night he could not breathe
while lying flat and felt worse. He has noticed edema and weight gain in his legs. He denies any chest pains although he does get occasional fullness in the center of his chest. He denies any history of hypertension, diabetes or hyperlipidemia.
He stopped drinking several months ago where he was drinking approximately 12 beers a week. Denies any recent illnesses or URIs. He has no fevers or chills. He has no coughing or wheezing. He does not smoke. Does use occasional recreational
marijuana. He has no palpitations or syncope.
Progress Note - Family Engagement Specialist
Subjective
Date of Service: October 18, 2023
Patient seen and examined. Patient resting comfortably in bed. Reports he has mild headache. Otherwise he feels less short of breath and overall symptomatically feels like he is improving.
Objective
Labs:
10/18/23 05:50
10/18/23 05:50
Labs
Hgb 17.0 g/dL (13.0-18.0) 10/18/23 05:50
Hct 49.0 % (39.0-52.0) 10/18/23 05:50
Plt Count 110 10^3/uL (130-400) L 10/18/23 05:50
PT 16.3 Sec (11.4-14.6) H 10/15/23 03:47
PT Cancelled 10/15/23 03:47
INR 1.33 10/15/23 03:47
INR Cancelled 10/15/23 03:47
APTT 93.5 Sec (23.4-35.0) H 10/18/23 05:50
Sodium 134 mmol/L (135-145) L 10/18/23 05:50
Potassium 3.9 mmol/L (3.5-5.1) 10/18/23 05:50
BUN 23 mg/dl (9-20) H 10/18/23 05:50
Creatinine 1.2 mg/dL (0.7-1.3) 10/18/23 05:50
Glucose 117 mg/dl (70-99) H 10/18/23 05:50
Vital Signs and I&O:
Vital Signs
Temp Pulse Resp BP Pulse Ox
98.6 F 90 15 107/73 96
10/18/23 09:00 10/18/23 13:39 10/18/23 13:39 10/18/23 13:00 10/18/23 13:39
Vital Signs
Temp Pulse Resp BP Pulse Ox
98.6 F 90 15 107/73 96
10/18/23 09:00 10/18/23 13:39 10/18/23 13:39 10/18/23 13:00 10/18/23 13:39
Intake & Output
10/16/23 10/17/23 10/18/23 10/19/23
06:59 06:59 06:59 06:59
Intake Total 714 / 714 676.9 / 676.9 1225.4 / 1225.4 273.5 / 273.5
Output Total 3375 / 3375 2950 / 2950 5750 / 5750 1850 / 1850
Balance -2661 / -2661 -2273.1 / -2273.1 -4524.6 / -4524.6 -1576.5 / -1576.5
Physical Exam
Physical Exam
GEN: No distress, awake, Ox3, lying in bed
HEENT: supple, anicteric, mmm
LUNGS: Faint crackles at bases otherwise CTA, no wheezes/rales; currently on 2 L of oxygen
CV: Reg, S1/S2, 2/6 apical murmur
ABD: soft, BS+, NT/ND
EXT: no lower extremity edema
NEURO: Gross non-focal
SKIN: No rash, warm, dry, pink
[2023-10-18] MEDS: TYLENOL 650 MG PO ×2 (16:05→22:53)
[2023-10-18] MEDS: KCL 40 MEQ PO (16:06)
--- NOTE | 2023-10-18 16:50 | PTCARENOTE ---
Milrinone gtt off per order of CHIDI. Repeat CI in 30 minutes: CI 1.3. CHIDI Stewart notified. No orders given. Will continue to monitor pt status. No HF complaints. MOREL is relieved. No c/o SOB, ADAME, belly bloating. No JVD, no abdominal distention. No
increased edema to BLE. Remains in SR with occasional PVCs.
--- NOTE | 2023-10-18 18:15 | PTCARENOTE ---
Pt given CHG bath. Leads changed. Helped to BSC to void and have small, brown BM. Pt then helped to chair. Linens changed.
BP when up in chair 80's/60's. As low as 75/60 x 1, then up to 90/60's. MAPs 65-79. No c/o lightheadedness, syncope. Milrinone gtt remains off. Dr. Kincaid in at 1810 and notified. Milrinone to remain off for now. Will continue to monitor. at
bedside and updated on status.
[2023-10-18] MEDS: HEPARIN 25000 UNITS/250 ML IV (19:26)
[2023-10-18] MEDS: CRESTOR 20 MG PO (19:26)
--- NOTE | 2023-10-18 19:54 | PTCARENOTE ---
Assumed care of patient @ 1900. Recieved pt laying in bed, AOX3. no c/o pain or headache. SR on tele HR 80s. BP stable. PAP 30s/10s. CI 1.92. +pulses, no edema noted. Lungs clear on room air. States breathing is markedly improved, no SOB. +BM
earlier. Voiding clear yellow urine in urinal. No skin issues. R IJ cordis with swan at 52. PIV x2 in L arm patent. Heparin at 1600 u/hr. Bed low and locked, family at bedside, call wolff within reach .
[2023-10-19] VITALS (27 sets, daily range): BP systolic 85–121; BP diastolic 55–94; BMI 24.0
--- NOTE | 2023-10-19 | PTCARENOTE ---
pt resting comfortably in bed, no change in assessment . call wolff within reach .
--- NOTE | 2023-10-19 04:00 | PTCARENOTE ---
labs drawn and sent , pt resting comfortably, no change in assessment .
[2023-10-19 04:29] LABS: Hematocrit 51.6 % (39.0-52.0); Hemoglobin 18.1 g/dL (13.0-18.0); Mean Corp Hgb Conc. 35.1 g/dL (33.0-37.0); Mean Corpuscular Hgb 33.3 pg (27.0-31.0); Mean Platelet Volume 11.9 fL (7.4-10.4); Platelet Count 106 10^3/uL (130-400); Red Blood Cell Count 5.43 10^6/uL (4.70-6.10); White Blood Cell Count 9.6 10^3/uL (4.8-10.8)
[2023-10-19 04:34] LABS: APTT 114.2 Sec (23.4-35.0)
[2023-10-19 05:20] LABS: ALT (SGPT) 20 U/L (0-50); AST (SGOT) 30 U/L (17-59); Albumin 3.9 g/dl (3.5-5.0); Alkaline Phosphatase 80 U/L (38-126); Blood Urea Nitrogen 24 mg/dl (9-20); Calcium 9.2 mg/dl (8.4-10.2); Carbon Dioxide 27 mmol/L (22-30); Chloride 97 mmol/L (98-107); Estimated Creatinine Clearance 79 ml/min; Glucose 105 mg/dl (70-99); Magnesium 1.9 mg/dl (1.6-2.3); Potassium 4.5 mmol/L (3.5-5.1); Sodium 133 mmol/L (135-145); Total Bilirubin 1.6 mg/dl (0.2-1.3); Total Protein 6.2 g/dl (6.3-8.2); eGFR > 60.00
--- NOTE | 2023-10-19 08:00 | PTCARENOTE ---
pt received from previous RN, oriented, OOB to chair w/ assist. SR w/ PVCs, HR 80-90s. PAP 20-30s/10s. CVP~3. SBP 90-110s. palpable pulses. pt on RA, 96-98% POX. lungs clear. pt abdomen s/n, poor appetite per pt. voids in urinal. RIJ cordis/swan
maintained as ordered. PIV x2. heparin gtt running as ordered. see worklist for VS, I&O, and assessment.
[2023-10-19] MEDS: COZAAR 50 MG PO (08:15)
[2023-10-19] MEDS: LEXAPRO 15 MG PO (08:16)
[2023-10-19] MEDS: LOW STRENGTH ASPIRIN 81 MG PO (08:16)
[2023-10-19] MEDS: MAGNESIUM OXIDE 500 MG PO (08:16)
[2023-10-19] MEDS: FARXIGA 10 MG PO (08:16)
--- NOTE | 2023-10-19 08:56 | W.PN.CARDCBS ---
Today's Communication / Plan
-
Stop heparin and pull [place] and right IJ Cordis after 2 hours
No significant change in cardiac index off of Primacor
Restart low-dose Coreg and decrease Cozaar
Possible Entresto and change to oral Lasix in the next 24 hours
Eventual Aldactone if blood pressure tolerates
LifeVest on discharge
Impression / Plan
-
PCP: Dr. Tom Hoang
Cardiology: None prior to admission
Impression:
Presented 10/12/2023 with acute shortness of breath
Acute HF severely reduced ejection fraction EF
milrinone gtt started 10/14/23, RHC repeated 10/16/23
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
Cardiogenic shock
Elevated troponin, peak at 0.202
Type 2 IA
Coronary artery disease
Chronic total occlusion of mid LAD by cath 10/14/23
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
Moderate to severe mitral regurgitation
PVCs
Depression
Thrombocytopenia
Cardiac catheterization 10/14/2023:
LM: LAD: chronic total occlusion mid with left to left collaterals. Ostial diagonal 70% stenosis. LCX: Luminal irregularities: RCA: Luminal irregularities.
RA (m) : 12; RV (s/d,m) : 42/11, 17; PA (s/d, m) : 41/24, 31; PCWP (m) : 31;
PA saturation: 49.4% on 4 L of oxygen via nasal cannula
AO saturation: 98.3% on 4 L of oxygen via nasal cannula
RA saturation: 53.1% on 4 L of oxygen via nasal cannula.
Cardiac Output : 2.36 L/min
Cardiac Index : 1.06 L/min/m-2
Systemic vascular resistance: 2547 dsc^(-5)
Pulmonary vascular resistance: [ ] schulz unit
Heart rate: 60 bpm
AO (s/d) : 102/79
Aortic valve was not crossed to obtain LVEDP in the setting of known left ventricular thrombus.
Repeat RHC 10/16/23:
RA (m) : 16, RV (s/d,m) : 47/15, 21, PA (s/d, m) : 48/26, 35, PCWP (m) : 28
PA saturation: 49.3% on room air
AO saturation: 97% on room air
Cardiac Output : 2.59 L/min
Cardiac Index : 1.19 L/min/m-2
Systemic vascular resistance: 2100 dsc^(-5)
Pulmonary vascular resistance: 2.70 schulz unit
Heart rate: 80 bpm
Noninvasive blood pressure: 111/68, mean of 84 mmHg
Echocardiogram 10/18/2023: Ejection fraction 15 to 20%, global hypokinesis with septal akinesis, apical thrombus measuring 1.2 x 1.0 cm
Echo 10/14/23: EF 10%. Severely dilated LV. Severely reduced LV function with global hypokinesis. Anteroseptal, septal and apical akinesis. Stage III diastolic dysfunction with restrictive filling pattern and increased filling pressures.
Laminated LV apical thrombus. Severely dilated LA. Moderate to severe MR. Mild TR. PAP 39 mmHg. Mildly dilated aortic root sinus of Valsalva 3.9 cm
Cardiac MRI 10/16/23: There are areas of thinning and postcontrast enhancement of the left ventricle compatible with regions of old infarction, small focus of not enhancement within the LV apex compatible with apical thrombus, no evidence of
infiltrative process, moderate MR and TR
Plan:
He has been weaned off Primacor over the last 24 hours.
There was not much more diuresis while on Primacor and the cardiac index peak was 1.91 on Primacor and is currently 1.6 off of Primacor
Will discontinue Primacor.
PA diastolic has improved over the past 48 hours. Was 26 in the [employer] on 10/15 and is currently 9
Will discontinue heparin and start Eliquis after [place]-Abe catheter and right IJ cordis have been pulled
His weight seems to have plateaued and will consider changing to oral Lasix on 10/19
His weight is down 24 pounds since admission and decreased 1 pound in the past 24 hours.
He will need LifeVest on discharge which will be arranged on Thursday 10/19 and consider AICD if ejection fraction remains less than 35%
Ejection fraction may have been very slightly increased but was very similar to study done 4 days before
As far as medical therapy for his cardiomyopathy we will try to restart low-dose Coreg now that he is off of Primacor
Will decrease losartan dose and consider changing to Entresto if tolerates addition of Coreg
Possible start of Aldactone if tolerates Coreg and Entresto
Continue Farxiga
Long-term treatment of his severe cardiomyopathy is unclear
He does have mitral regurgitation but unclear if this was a residual of his cardiomyopathy or a cause
CAD not likely the cause as extent of cardiomyopathy outweighed the severity of CAD and MRI suggest LV may not be viable and would not improve with bypass surgery
Will need to consider referral to tertiary care center
Discussed in detail with patient and nursing.
HPI: 68-year-old male with minimal past medical history presents to [facility] with several months of orthopnea, PND and dyspnea. The symptoms have been ongoing since June and have been slowly worsening. Last night he could not breathe
while lying flat and felt worse. He has noticed edema and weight gain in his legs. He denies any chest pains although he does get occasional fullness in the center of his chest. He denies any history of hypertension, diabetes or hyperlipidemia.
He stopped drinking several months ago where he was drinking approximately 12 beers a week. Denies any recent illnesses or URIs. He has no fevers or chills. He has no coughing or wheezing. He does not smoke. Does use occasional recreational
marijuana. He has no palpitations or syncope.
Progress Note - Community Affairs Director
Subjective
Date of Service: October 19, 2023
He is without complaints.
Objective
Labs:
10/19/23 04:08
10/19/23 04:08
Labs
Hgb 18.1 g/dL (13.0-18.0) H 10/19/23 04:08
Hct 51.6 % (39.0-52.0) 10/19/23 04:08
Plt Count 106 10^3/uL (130-400) L 10/19/23 04:08
PT 16.3 Sec (11.4-14.6) H 10/15/23 03:47
PT Cancelled 10/15/23 03:47
INR 1.33 10/15/23 03:47
INR Cancelled 10/15/23 03:47
APTT 114.2 Sec (23.4-35.0) H 10/19/23 04:08
Sodium 133 mmol/L (135-145) L 10/19/23 04:08
Potassium 4.5 mmol/L (3.5-5.1) 10/19/23 04:08
BUN 24 mg/dl (9-20) H 10/19/23 04:08
Creatinine 1.1 mg/dL (0.7-1.3) 10/19/23 04:08
Glucose 105 mg/dl (70-99) H 10/19/23 04:08
Vital Signs and I&O:
Vital Signs
Temp Pulse Resp BP Pulse Ox
100.0 F 86 16 104/59 97
10/19/23 08:00 10/19/23 08:31 10/19/23 08:31 10/19/23 08:31 10/19/23 08:31
Vital Signs
Temp Pulse Resp BP Pulse Ox
100.0 F 86 16 104/59 97
10/19/23 08:00 10/19/23 08:31 10/19/23 08:31 10/19/23 08:31 10/19/23 08:31
Intake & Output
07/18/24 07/19/24 07/20/24 07/21/24
06:59 06:59 06:59 06:59
Intake Total 676.9 / 676.9 1225.4 / 1225.4 723.2 / 723.2 55 / 55
Output Total 2950 / 2950 5750 / 5750 3075 / 3075
Balance -2273.1 / -2273.1 -4524.6 / -4524.6 -2351.8 / -2351.8 55 / 55
Physical Exam
Physical Exam
General: Well developed, well nourished in NAD.
Neck: Supple, no JVD, HJR, carotids +2 B/L, no bruits bilaterally.
Heart: Non displaced PMI, RRR, no murmurs, No S3, S4, no rubs.
Lungs: Scattered rhonchi
Extremities: No clubbing, cyanosis or edema bilaterally.
Neuro: Grossly nonfocal, awake, alert and oriented x3.
--- NOTE | 2023-10-19 09:17 | W.PN.HOSP.TC ---
Addendum entered and electronically signed by Rowena Judd MD 10/19/23 13:31:
I saw and evaluated the patient independently. I reviewed the resident�s note and agree with findings and plan as documented by Dr. Gao.
GENERAL: well developed, well nourished, male in no apparent distress
HEENT: NC/AT--no O2 requirements-- [place] Abe cath removed
HEART: regular rate and rhythm, +S1, +S2, faint 1/6 ISAAC
LUNGS : clear to auscultation bilaterally
ABDOM: soft, nontender, nondistended, + bowel sounds
EXT: no cyanosis, clubbing, edema
NEUROLOGIC: grossly intact
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
level of the diagonal branch with eccentric 70% ostial diagonal stenosis and left to left collaterals)--better with diuresis but still with volume overload--Echo also with apical clot--apprec cards--cont diuresis, I/Os, daily weights---CT scan of
the chest PE protocol negative for pulmonary embolism. Moderate to severe cardiomegaly. Pulmonary edema--pt had right heart cath with [place] left in--cont milrinone for ionotropic support and to augment diuresis-- cardiac MRI reviewed with findings
of old infarcts, clot, decreased EF etc...--apprec CT surgery--cont IV heparin--losartan added and increased by cards, considering switch to Entresto and/or aldactone
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
anxiety--cont escitalopram 15 mg daily per pt
code status --Full code
DVT prophylaxis -- on IV heparin--watch platelet count
Original Note:
Today's Communication/Plan
-
Monitor hemodynamic status
Assessment / Plan
Assessment / Plan
pt is a 68 year old male
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
level of the diagonal branch with eccentric 70% ostial diagonal stenosis and left to left collaterals)--better with diuresis but still with volume overload--Echo also with apical clot--apprec cards--cont diuresis, I/Os, daily weights---CT scan of
the chest PE protocol negative for pulmonary embolism. Moderate to severe cardiomegaly. Pulmonary edema--pt had right heart cath with [place] left in-cardiac MRI reviewed with findings of old infarcts, clot, decreased EF etc...--
-apprec CT surgery
-Appreciate cardiology input
-Weaned off milrinone with no significant change in cardiac index. Cardiac output improved today at 3.33. Cardiac index 1.53
-Currently off heparin for [place] catheter removal.
-Continue carvedilol, Farxiga, losartan, IV Furosemide per cardiology. Possible Entresto and p.o. furosemide tomorrow. Eventual Aldactone if blood pressure tolerates
-Will be discharged on LifeVest
Elevated Troponin:
likely Type 2 TN-trended downward. peak at 0.202. Continue Aspirin 81mg
-Appreciate Cardiology input
Recent diagnosis of anxiety:
-cont escitalopram 15 mg daily per pt
DVT prophylaxis: heparin (held momentarily)
code status --Full code
Anticipated Discharge: > 48 hours
Subjective/Interval History
-
Date of Service: October 19, 2023
Poor sleep overnight, otherwise feels well.
Objective Data
-
Labs:
Laboratory Results
10/19/23 10/19/23
04:08 11:00
WBC 9.6
Hgb 18.1 H
Hct 51.6
Plt Count 106 L
APTT 114.2 H Pending
Sodium 133 L
Potassium 4.5
Chloride 97 L
Carbon Dioxide 27
BUN 24 H
Creatinine 1.1
Glucose 105 H
Calcium 9.2
Total Bilirubin 1.6 H
AST 30
ALT 20
Alkaline Phosphatase 80
Vital Signs:
Vital Signs
Temp Pulse Resp BP Pulse Ox
100.0 F 86 16 104/59 97
10/19/23 08:00 10/19/23 08:31 10/19/23 08:31 10/19/23 08:31 10/19/23 08:31
I&O
10/18/23 10/19/23 10/20/23
06:59 06:59 06:59
Intake Total 1225.4 / 1225.4 723.2 / 723.2 55 / 55
Output Total 5750 / 5750 3075 / 3075
Balance -4524.6 / -4524.6 -2351.8 / -2351.8 55 / 55
Review of Systems
-
History Source: Patient
Constitutional: Reports Fever
Cardiac: Reports No Symptoms; Denies Chest Pain, Palpitations or Syncope
Abdomen/GI: Reports No Symptoms; Denies Abdominal Pain, Diarrhea or Constipated
Neuro: Denies Dizzy or Headache
Physical Exam
-
General: No Apparent Distress and Comfortable
HEENT: Moist Mucous Membranes
Respiratory: Clear to Auscultation and Non Labored Respirations; Negative Wheezes, Rales, Rhonchi or Crackles
Cardiac: Regular Rhythm and S1/S2; Negative Murmur or Rub
GI: Soft, Nontender, Nondistended and Normal Bowel Sounds
Musculoskeletal: No Clubbing, No Cyanosis and No Edema
Skin: Warm and Dry
Neuro: Awake, Alert and Oriented
Psych: Calm
[2023-10-19] MEDS: LASIX 80 MG IV ×2 (09:37→16:02)
[2023-10-19] MEDS: COREG 3.125 MG PO ×2 (11:15→20:39)
[2023-10-19] MEDS: ELIQUIS 5 MG PO ×2 (11:16→20:38)
--- NOTE | 2023-10-19 11:47 | PTCARENOTE ---
pt VSS, no changes in assessment. RIJ alber/irwin dc'd as ordered.
--- NOTE | 2023-10-19 16:30 | PTCARENOTE ---
pt VSS, no changes in assessment. ambulates in hallway, denies SOB. family at bedside. voiding in urinal.
[2023-10-19] MEDS: CRESTOR 20 MG PO (17:45)
--- NOTE | 2023-10-19 20:00 | PTCARENOTE ---
Assumed care of patient @ 1900. Recieved pt laying in bed, AOX3. no c/o pain or headache. SR on tele HR 80s. BP stable. +pulses, no edema noted. Lungs clear on room air. no SOB. +BM earlier. Voiding clear yellow urine in urinal. No skin issues. PIV
x2 in L arm patent. Bed low and locked, family at bedside, call wolff within reach .
[2023-10-19] MEDS: MELATONIN 3 MG PO (22:12)
--- NOTE | 2023-10-19 23:58 | PTCARENOTE ---
pt resting comfortably, no change in assessment .
[2023-10-20] VITALS (8 sets, daily range): BP systolic 89–101; BP diastolic 55–77; BMI 24.2
[2023-10-20 04:38] LABS: Hematocrit 49.8 % (39.0-52.0); Hemoglobin 17.6 g/dL (13.0-18.0); Mean Corp Hgb Conc. 35.3 g/dL (33.0-37.0); Mean Corpuscular Hgb 33.7 pg (27.0-31.0); Mean Corpuscular Volume 95.2 fL (80.0-94.0); Mean Platelet Volume 12.1 fL (7.4-10.4); Platelet Count 108 10^3/uL (130-400); Red Blood Cell Count 5.23 10^6/uL (4.70-6.10); Red Cell Dist. Width 14.1 % (11.5-14.5); White Blood Cell Count 9.5 10^3/uL (4.8-10.8)
[2023-10-20 05:02] LABS: ALT (SGPT) 23 U/L (0-50); AST (SGOT) 37 U/L (17-59); Albumin 3.7 g/dl (3.5-5.0); Alkaline Phosphatase 71 U/L (38-126); Blood Urea Nitrogen 27 mg/dl (9-20); Calcium 9.2 mg/dl (8.4-10.2); Carbon Dioxide 26 mmol/L (22-30); Chloride 95 mmol/L (98-107); Estimated Creatinine Clearance 72 ml/min; Glucose 110 mg/dl (70-99); Potassium 4.6 mmol/L (3.5-5.1); Sodium 130 mmol/L (135-145); Total Bilirubin 1.4 mg/dl (0.2-1.3); Total Protein 6.2 g/dl (6.3-8.2); eGFR > 60.00
--- NOTE | 2023-10-20 06:52 | PTCARENOTE ---
pt with 22 beat run VT - asymptomatic- CTPA notified
[2023-10-20] MEDS: FARXIGA 10 MG PO (08:52)
[2023-10-20] MEDS: LEXAPRO 15 MG PO (08:53)
[2023-10-20] MEDS: MAGNESIUM OXIDE 500 MG PO (08:53)
[2023-10-20] MEDS: LOW STRENGTH ASPIRIN 81 MG PO (08:54)
[2023-10-20] MEDS: ELIQUIS 5 MG PO ×2 (08:54→21:31)
[2023-10-20] MEDS: LASIX 80 MG IV (08:54)
[2023-10-20] MEDS: COREG PO (08:55)
[2023-10-20] MEDS: PACERONE 400 MG PO ×3 (09:08→21:32)
[2023-10-20] MEDS: COZAAR PO (09:09)
--- NOTE | 2023-10-20 10:05 | PTCARENOTE ---
self care. VSS. SR with PVCs. Amio given as ordered for runs of VT. asymptomatic. BRP. IV lasix given Will continue ot monitor.
--- NOTE | 2023-10-20 10:22 | W.PN.CARDCBS ---
Today's Communication / Plan
-
Continues to do very well
Changed to oral Lasix
Follow hyponatremia
Add amiodarone with nonsustained V. tach
Possible discharge on 10/20 with LifeVest
Consider referral to tertiary care center on discharge
Impression / Plan
-
PCP: Dr. Tom Hoang
Cardiology: None prior to admission
Impression:
Presented 10/12/2023 with acute shortness of breath
Acute HF severely reduced ejection fraction EF
milrinone gtt started 10/14/23 and stopped on 10/18/2023, RHC repeated 10/16/23
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
Cardiogenic shock
Nonsustained V. tach
Elevated troponin, peak at 0.202, nonischemic myocardial injury
Coronary artery disease
Chronic total occlusion of mid LAD by cath 10/14/23
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
Moderate to severe mitral regurgitation
Hyponatremia
PVCs
Depression
Thrombocytopenia
Cardiac catheterization 10/14/2023:
LM: LAD: chronic total occlusion mid with left to left collaterals. Ostial diagonal 70% stenosis. LCX: Luminal irregularities: RCA: Luminal irregularities.
RA (m) : 12; RV (s/d,m) : 42/11, 17; PA (s/d, m) : 41/24, 31; PCWP (m) : 31;
PA saturation: 49.4% on 4 L of oxygen via nasal cannula
AO saturation: 98.3% on 4 L of oxygen via nasal cannula
RA saturation: 53.1% on 4 L of oxygen via nasal cannula.
Cardiac Output : 2.36 L/min
Cardiac Index : 1.06 L/min/m-2
Systemic vascular resistance: 2547 dsc^(-5)
Pulmonary vascular resistance: [ ] schulz unit
Heart rate: 60 bpm
AO (s/d) : 102/79
Aortic valve was not crossed to obtain LVEDP in the setting of known left ventricular thrombus.
Repeat RHC 10/16/23:
RA (m) : 16, RV (s/d,m) : 47/15, 21, PA (s/d, m) : 48/26, 35, PCWP (m) : 28
PA saturation: 49.3% on room air
AO saturation: 97% on room air
Cardiac Output : 2.59 L/min
Cardiac Index : 1.19 L/min/m-2
Systemic vascular resistance: 2100 dsc^(-5)
Pulmonary vascular resistance: 2.70 schulz unit
Heart rate: 80 bpm
Noninvasive blood pressure: 111/68, mean of 84 mmHg
Echocardiogram 10/18/2023: Ejection fraction 15 to 20%, global hypokinesis with septal akinesis, apical thrombus measuring 1.2 x 1.0 cm
Echo 10/14/23: EF 10%. Severely dilated LV. Severely reduced LV function with global hypokinesis. Anteroseptal, septal and apical akinesis. Stage III diastolic dysfunction with restrictive filling pattern and increased filling pressures.
Laminated LV apical thrombus. Severely dilated LA. Moderate to severe MR. Mild TR. PAP 39 mmHg. Mildly dilated aortic root sinus of Valsalva 3.9 cm
Cardiac MRI 10/16/23: There are areas of thinning and postcontrast enhancement of the left ventricle compatible with regions of old infarction, small focus of not enhancement within the LV apex compatible with apical thrombus, no evidence of
infiltrative process, moderate MR and TR
Plan:
He appears to be doing extremely well.
He tolerated wean off of Primacor
He is on room air and ambulating the floors without issues
He has been weaned off Primacor over the last 24 hours.
His weight seems to have plateaued and will change to oral Lasix 80 mg p.o. twice daily
There is hyponatremia which may be due to Lasix and will need to be followed
His weight is down 23 pounds since admission
He will need LifeVest on discharge which will be arranged on Thursday 10/19 and consider AICD if ejection fraction remains less than 35% on repeat echo to be done as an outpatient
Ejection fraction may have been very slightly increased but was very similar to study done 4 days before
He is tolerating low-dose Coreg and low-dose losartan
Unable to change to Entresto or add Aldactone given hypotension
Continue Farxiga
Long-term treatment of his severe cardiomyopathy is unclear
He does have mitral regurgitation but unclear if this was a residual of his cardiomyopathy or a cause
CAD not likely the cause as extent of cardiomyopathy outweighed the severity of CAD and MRI suggest LV may not be viable and would not improve with bypass surgery
Will need to consider referral to tertiary care center on discharge
He continues with brief episodes of nonsustained V. tach
We will add amiodarone temporarily with loading dose of 400 mg p.o. 3 times daily to start today and will be discharged on 200 mg p.o. twice daily
Possible discharge on 10/20 with LifeVest
Discussed in detail with patient and nursing.
HPI: 68-year-old male with minimal past medical history presents to [facility] with several months of orthopnea, PND and dyspnea. The symptoms have been ongoing since June and have been slowly worsening. Last night he could not breathe
while lying flat and felt worse. He has noticed edema and weight gain in his legs. He denies any chest pains although he does get occasional fullness in the center of his chest. He denies any history of hypertension, diabetes or hyperlipidemia.
He stopped drinking several months ago where he was drinking approximately 12 beers a week. Denies any recent illnesses or URIs. He has no fevers or chills. He has no coughing or wheezing. He does not smoke. Does use occasional recreational
marijuana. He has no palpitations or syncope.
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
Subjective
Date of Service: October 20, 2023
No complaints. Ambulating in the hallways
Objective
Labs:
10/20/23 03:49
10/20/23 03:49
Labs
Hgb 17.6 g/dL (13.0-18.0) 10/20/23 03:49
Hct 49.8 % (39.0-52.0) 10/20/23 03:49
Plt Count 108 10^3/uL (130-400) L 10/20/23 03:49
PT 16.3 Sec (11.4-14.6) H 10/15/23 03:47
PT Cancelled 10/15/23 03:47
INR 1.33 10/15/23 03:47
INR Cancelled 10/15/23 03:47
APTT Cancelled 10/19/23 11:00
Sodium 130 mmol/L (135-145) L 10/20/23 03:49
Potassium 4.6 mmol/L (3.5-5.1) 10/20/23 03:49
BUN 27 mg/dl (9-20) H 10/20/23 03:49
Creatinine 1.2 mg/dL (0.7-1.3) 10/20/23 03:49
Glucose 110 mg/dl (70-99) H 10/20/23 03:49
Vital Signs and I&O:
Vital Signs
Temp Pulse Resp BP Pulse Ox
99.2 F 84 14 89/77 95
10/20/23 04:01 10/20/23 08:54 10/20/23 04:01 10/20/23 08:55 10/20/23 04:01
Vital Signs
Temp Pulse Resp BP Pulse Ox
99.2 F 84 14 89/77 95
10/20/23 04:01 10/20/23 08:54 10/20/23 04:01 10/20/23 08:55 10/20/23 04:01
Intake & Output
10/18/23 10/19/23 10/20/23 10/21/23
06:59 06:59 06:59 06:59
Intake Total 1225.4 / 1225.4 723.2 / 723.2 985 / 985
Output Total 5750 / 5750 3075 / 3075 2049
Balance -4524.6 / -4524.6 -2351.8 / -2351.8 -1065 / -1065
Physical Exam
Physical Exam
General: Well developed, well nourished in NAD.
Neck: Supple, no JVD, HJR, carotids +2 B/L, no bruits bilaterally.
Heart: Non displaced PMI, RRR, no murmurs, No S3, S4, no rubs.
Lungs: Clear to auscultation bilaterally, no wheeze, rhonchi, rubs bilaterally,
normal expiratory phase.
Extremities: No clubbing, cyanosis or edema bilaterally.
Neuro: Grossly nonfocal, awake, alert and oriented x3.
--- NOTE | 2023-10-20 13:00 | PTCARENOTE ---
walking rounds report received in room. Patient seen on rounds ambulating in hallway. Awake alert and oriented x 3. Denies pain. NSR with pvc on monitor. Room air. See flow record for remaining assessments.
[2023-10-20] MEDS: LASIX 80 MG PO (15:19)
--- NOTE | 2023-10-20 16:17 | W.PN.HOSP.TC ---
Addendum entered and electronically signed by Rowena Judd MD 10/20/23 18:43:
I saw and evaluated the patient independently. I reviewed the resident�s note and agree with findings and plan as documented by Dr. Gao.
GENERAL: well developed, well nourished, male in no apparent distress
HEENT: NC/AT--no O2 requirements-- Man[place] Abe cath removed
HEART: regular rate and rhythm, +S1, +S2, faint 1/6 ISAAC
LUNGS : clear to auscultation bilaterally
ABDOM: soft, nontender, nondistended, + bowel sounds
EXT: no cyanosis, clubbing, edema
NEUROLOGIC: grossly intact
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
level of the diagonal branch with eccentric 70% ostial diagonal stenosis and left to left collaterals)--better with diuresis but still with volume overload--Echo also with apical clot--apprec cards--cont diuresis, I/Os, daily weights---CT scan of
the chest PE protocol negative for pulmonary embolism. Moderate to severe cardiomegaly. Pulmonary edema--pt had right heart cath with Manvel left in--cont milrinone for ionotropic support and to augment diuresis-- cardiac MRI reviewed with findings
of old infarcts, clot, decreased EF etc...--apprec CT surgery--cont IV heparin--coreg, cozaar, crestor, lasix, farxiga
NSVT--amio started by cards--will need Lifevest at d/c--keep K > 4 and mag > 2
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
anxiety--cont escitalopram 15 mg daily per pt
code status --Full code
DVT prophylaxis -- on IV heparin--watch platelet count
Original Note:
Today's Communication/Plan
-
Continue amiodarone, PO diuresis, monitor hemodynamic status
Assessment / Plan
Assessment / Plan
pt is a 68 year old male
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
level of the diagonal branch with eccentric 70% ostial diagonal stenosis and left to left collaterals)--better with diuresis but still with volume overload--Echo also with apical clot--apprec cards--cont diuresis, I/Os, daily weights---CT scan of
the chest PE protocol negative for pulmonary embolism. Moderate to severe cardiomegaly. Pulmonary edema--pt had right heart cath with [place] left in-cardiac MRI reviewed with findings of old infarcts, clot, decreased EF etc...--
-apprec CT surgery
-Appreciate cardiology input
-Weaned off milrinone with no significant change in cardiac index. Cardiac output 10/18 at 3.33. Cardiac index 1.53
-Restarted Eliquis after [place] catheter removal.
-Continue carvedilol, Farxiga, losartan, switched to p.o. furosemide. Amiodarone 400 mg p.o. added for nonsustained V-tach.
-Will be discharged on LifeVest
-Plan is to seek second opinion at [place] upon discharge
Elevated Troponin:
likely Type 2 NV-trended downward. peak at 0.202.
-Continue Aspirin 81mg
-Appreciate Cardiology input
Recent diagnosis of anxiety:
-cont escitalopram 15 mg daily per pt
DVT prophylaxis: Eliquis
code status --Full code
Anticipated Discharge: Within 24 hours
Subjective/Interval History
-
Date of Service: October 20, 2023
Reports good sleep
Pt had a 22 beat run of V. tach overnight. Asymptomatic
Objective Data
-
Labs:
Laboratory Results
10/20/23
03:49
WBC 9.5
Hgb 17.6
Hct 49.8
Plt Count 108 L
Sodium 130 L
Potassium 4.6
Chloride 95 L
Carbon Dioxide 26
BUN 27 H
Creatinine 1.2
Glucose 110 H
Calcium 9.2
Total Bilirubin 1.4 H
AST 37
ALT 23
Alkaline Phosphatase 71
Vital Signs:
Vital Signs
Temp Pulse Resp BP Pulse Ox
98.4 F 77 18 90/55 97
10/20/23 15:15 10/20/23 15:15 10/20/23 15:15 10/20/23 15:15 10/20/23 15:15
I&O
10/19/23 10/20/23 10/21/23
06:59 06:59 06:59
Intake Total 723.2 / 723.2 985 / 985 480 / 480
Output Total 3075 / 3075 2050 / 0 1200 / 1200
Balance -2351.8 / -2351.8 -1065 / -1065 -720 / -720
Review of Systems
-
History Source: Patient
Constitutional: Denies Sleep Disturbance
Respiratory: Denies Cough or Trouble Breathing
Cardiac: Denies Chest Pain or Palpitations
Abdomen/GI: Denies Abdominal Pain, Diarrhea or Constipated
Genitourinary: Reports No Symptoms; Denies Dysuria or Difficulty Voiding
Musculoskeletal: Denies Edema
Neuro: Denies Dizzy or Headache
Physical Exam
-
General: Comfortable
Respiratory: Clear to Auscultation and Non Labored Respirations; Negative Wheezes, Rales, Rhonchi or Crackles
Cardiac: Regular Rhythm; Negative S1/S2, Murmur or Rub
GI: Soft, Nontender, Nondistended and Normal Bowel Sounds
Musculoskeletal: No Clubbing and No Cyanosis
Skin: Warm and Dry
Neuro: Awake, Alert and Oriented
Psych: Calm
[2023-10-20] MEDS: CRESTOR 20 MG PO (18:03)
--- NOTE | 2023-10-20 20:00 | PTCARENOTE ---
assumed care of patient @ 1900. Pt self care ambulating in room. See flowsheet for assessment .
[2023-10-20] MEDS: MELATONIN 3 MG PO (21:31)
[2023-10-20] MEDS: COREG 3.125 MG PO (21:31)
--- NOTE | 2023-10-21 | PTCARENOTE ---
pt placed on 2L NC overnight, no other change in assessment .
[2023-10-21 00:39] VITALS: BP 99/62
[2023-10-21 05:15] VITALS: BP 100/78
[2023-10-21 05:27] LABS: Hematocrit 46.5 % (39.0-52.0); Hemoglobin 16.6 g/dL (13.0-18.0); Mean Corp Hgb Conc. 35.7 g/dL (33.0-37.0); Mean Corpuscular Hgb 32.6 pg (27.0-31.0); Mean Corpuscular Volume 91.4 fL (80.0-94.0); Mean Platelet Volume 12.6 fL (7.4-10.4); Platelet Count 123 10^3/uL (130-400); Red Blood Cell Count 5.09 10^6/uL (4.70-6.10); Red Cell Dist. Width 14.3 % (11.5-14.5); White Blood Cell Count 7.9 10^3/uL (4.8-10.8)
[2023-10-21 06:00] VITALS: BMI 23.7
[2023-10-21 07:39] VITALS: BP 92/65
[2023-10-21 08:29] LABS: Blood Urea Nitrogen 40 mg/dl (9-20); Calcium 9.4 mg/dl (8.4-10.2); Carbon Dioxide 30 mmol/L (22-30); Chloride 92 mmol/L (98-107); Estimated Creatinine Clearance 67 ml/min; Glucose 106 mg/dl (70-99); Magnesium 2.1 mg/dl (1.6-2.3); Potassium 4.4 mmol/L (3.5-5.1); Sodium 133 mmol/L (135-145); eGFR > 60.00
[2023-10-21] MEDS: FARXIGA 10 MG PO (08:34)
[2023-10-21] MEDS: COREG 3.125 MG PO (08:34)
[2023-10-21] MEDS: LEXAPRO 15 MG PO (08:34)
[2023-10-21] MEDS: PACERONE 400 MG PO ×2 (08:34→16:42)
[2023-10-21] MEDS: COZAAR 25 MG PO (08:34)
[2023-10-21] MEDS: LOW STRENGTH ASPIRIN 81 MG PO (08:34)
[2023-10-21] MEDS: LASIX 80 MG PO ×2 (08:34→16:42)
[2023-10-21] MEDS: ELIQUIS 5 MG PO (08:34)
[2023-10-21] MEDS: MAGNESIUM OXIDE 500 MG PO (08:34)
--- NOTE | 2023-10-21 08:47 | W.PN.CARDCBS ---
Addendum entered and electronically signed by Anastasia Mayorga DO 10/21/23 11:51:
I saw and examined the patient.
The Ssis Ssrs Developer's note was reviewed and I agree with the note.
Comment: Patient seen and examined. Sitting out of bed to chair and feeling well. Denies dizziness or lightheadedness. No shortness of breath or chest pain. Resolved lower extremity edema. LifeVest fitting pending discharge; all questions
answered
GEN: NAD, AAOx3
HEENT: mmm
LUNGS: CTA, no wheezes/rales
CV: Reg, S1/S2, 1/6 apical murmur
ABD: soft, BS+, NT/ND
EXT: No edema
Plan:
Acute systolic heart failure decompensation with EF found to be 15 to 20%
-Improved hemodynamics ambulating on floors on room air
-He has been weaned off Primacor stopped 10/18/2023
-His weight is down 26 pounds since admission and seems to have plateaued, currently 189 lbs
-Reviewed left heart catheterization: Left dominant circulation with 100% chronic total occlusion of mid LAD: Left dominant circulation with 100% chronic total occlusion of mid LAD at the level of the diagonal branch with eccentric 70% ostial
diagonal stenosis and left to left collaterals. Mild diffuse luminal irregularities in the circumflex and RCA.
-cardiac MRI this morning without evidence of any infiltrative process or non-compaction. Severe hypokinesis noted with regions of old infarction including areas of thinning and a small focus of enhancement within the LV apex compatible with apical
thrombus.
-Continue optimization of goal-directed medical therapy as able: Continue oral Lasix 80 mg p.o. twice daily, losartan 25 mg once daily, carvedilol 3.125 mg twice daily, Farxiga 10 mg daily. If blood pressure allows, transition from losartan to
Entresto as an outpatient [Entresto is cost prohibitive at $162 a month]. Plan also to add Aldactone as an outpatient.
-Continue amiodarone load for NSVT: Transition to amiodarone 200 mg twice daily for 1 month then 200 mg thereafter
-He will need outp BMP and magnesium in 1 week
-LifeVest arranged prior to discharge. Repeat echocardiogram in 3 months to reassess ejection fraction.
-LV apical thrombus found during cardiac testing now on Eliquis 5 mg twice daily.
-Cardiac rehab
-Contacted Dr. Alexandra Gabriel at [facility] advanced heart failure to arrange cardiac consultation following discharge. Patient provided with disc of studies and records.
-Heart failure education, diet and symptom monitoring reviewed with understanding. Strongly advised against alcohol use; quit drinking 3 months ago.
Discharge home today with LifeVest and close outpatient cardiac follow-up
Original Note:
Today's Communication / Plan
-
Continue low-dose Coreg, Farxiga and losartan
D/c home on Amiodarone 200 mg BID x 1 month then 200 mg daily after
Check EKG
Continue Eliquis for LV thrombus
BMP and mag in 1 week
LifeVest fitting today with anticipated discharge after
Outpatient cardiology follow-up has been arranged w/ [facility]
Also reached out to Dr. Alexandra Gabriel at [facility] regarding follow-up there.
Impression / Plan
-
PCP: Dr. Tom Hoang
Cardiology: None prior to admission, initial consult Dr. Valero
Impression:
Presented 10/12/2023 with acute shortness of breath
Acute HF severely reduced ejection fraction EF
milrinone gtt started 10/14/23 and stopped on 10/18/2023, RHC repeated 10/16/23
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
Cardiogenic shock
Nonsustained V. tach
Elevated troponin, peak at 0.202, nonischemic myocardial injury
Coronary artery disease
Chronic total occlusion of mid LAD by cath 10/14/23
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
Moderate to severe mitral regurgitation
Hyponatremia
PVCs
Depression
Thrombocytopenia
Cardiac catheterization 10/14/2023:
LM: LAD: chronic total occlusion mid with left to left collaterals. Ostial diagonal 70% stenosis. LCX: Luminal irregularities: RCA: Luminal irregularities.
RA (m) : 12; RV (s/d,m) : 42/11, 17; PA (s/d, m) : 41/24, 31; PCWP (m) : 31;
PA saturation: 49.4% on 4 L of oxygen via nasal cannula
AO saturation: 98.3% on 4 L of oxygen via nasal cannula
RA saturation: 53.1% on 4 L of oxygen via nasal cannula.
Cardiac Output : 2.36 L/min
Cardiac Index : 1.06 L/min/m-2
Systemic vascular resistance: 2547 dsc^(-5)
Pulmonary vascular resistance: [ ] schulz unit
Heart rate: 60 bpm
AO (s/d) : 102/79
Aortic valve was not crossed to obtain LVEDP in the setting of known left ventricular thrombus.
Repeat RHC 10/16/23:
RA (m) : 16, RV (s/d,m) : 47/15, 21, PA (s/d, m) : 48/26, 35, PCWP (m) : 28
PA saturation: 49.3% on room air
AO saturation: 97% on room air
Cardiac Output : 2.59 L/min
Cardiac Index : 1.19 L/min/m-2
Systemic vascular resistance: 2100 dsc^(-5)
Pulmonary vascular resistance: 2.70 schulz unit
Heart rate: 80 bpm
Noninvasive blood pressure: 111/68, mean of 84 mmHg
Echocardiogram 10/18/2023: Ejection fraction 15 to 20%, global hypokinesis with septal akinesis, apical thrombus measuring 1.2 x 1.0 cm
Echo 10/14/23: EF 10%. Severely dilated LV. Severely reduced LV function with global hypokinesis. Anteroseptal, septal and apical akinesis. Stage III diastolic dysfunction with restrictive filling pattern and increased filling pressures.
Laminated LV apical thrombus. Severely dilated LA. Moderate to severe MR. Mild TR. PAP 39 mmHg. Mildly dilated aortic root sinus of Valsalva 3.9 cm
Cardiac MRI 10/16/23: There are areas of thinning and postcontrast enhancement of the left ventricle compatible with regions of old infarction, small focus of not enhancement within the LV apex compatible with apical thrombus, no evidence of
infiltrative process, moderate MR and TR
Plan:
Heart failure with severely reduced EF 15-20%, mixed cardiomyopathy
He appears to be doing extremely well.
He is on room air and ambulating the floors without issues
He has been weaned off Primacor stopped 10/18/2023
His weight is down 26 pounds since admission and seems to have plateaued, currently 189 lbs
Continue oral Lasix 80 mg p.o. twice daily
Creat stable at 1.3
There is hyponatremia stable around 133-134 which may be due to Lasix and will need to be followed.
He will need outp BMP and magnesium in 1 week
Plan for LifeVest on discharge Thursday 10/19. LifeVest has been notified.
Cardiac rehab
Consideration of AICD if ejection fraction remains less than 35% on repeat echo in 3 months to be done as an outpatient
He is tolerating low-dose Coreg and low-dose losartan
Unable to change to Entresto or add Aldactone or uptitrate Coreg or Losartan given hypotension
Continue Farxiga
Entresto is cost prohibitive at $162 a month
Long-term treatment of his severe cardiomyopathy is unclear
EF was 10% by echo 10/14/23 with [facility] showing [employer] LAD, but CM was out of proportion to CAD so cardiac MRI 10/16/23 ordered that showed no evidence of infiltrative process, but concern for areas of old infarction.
He does have mitral regurgitation but unclear if this was a residual of his cardiomyopathy or a cause
CAD not likely the cause as extent of cardiomyopathy outweighed the severity of CAD and MRI suggest LV may not be viable and would not improve with bypass surgery
We have reached out to Alexandra Gabriel at [facility] and have discussed the case. She will be making arrangements for pt to be seen for follow up.
He continues with brief episodes of nonsustained V. tach
Started on amiodarone with loading dose of 400 mg p.o. 3 times daily and will be discharged on 200 mg p.o. twice daily
Check ECG to monitor QTc
LV apical thrombus on echo
Continue Eliquis 5 mg twice a day
Cost is $140 a month. Will provide free 30-day co-pay card upon discharge
Discussed in detail with patient and nursing. Likely d/c today after Life Vest
HPI: 68-year-old male with minimal past medical history presents to [facility] with several months of orthopnea, PND and dyspnea. The symptoms have been ongoing since June and have been slowly worsening. Last night he could not breathe
while lying flat and felt worse. He has noticed edema and weight gain in his legs. He denies any chest pains although he does get occasional fullness in the center of his chest. He denies any history of hypertension, diabetes or hyperlipidemia.
He stopped drinking several months ago where he was drinking approximately 12 beers a week. Denies any recent illnesses or URIs. He has no fevers or chills. He has no coughing or wheezing. He does not smoke. Does use occasional recreational
marijuana. He has no palpitations or syncope.
Progress Note - Student Support Services Director
Subjective
Date of Service: October 21, 2023
Patient seen and examined. Patient reports he is feeling great. He has been able to ambulate around the unit without chest pain or shortness of breath. Edema resolved. No orthopnea PND dizziness or lightheadedness
Objective
Labs:
10/21/23 05:21
10/21/23 07:29
Labs
Hgb 16.6 g/dL (13.0-18.0) 10/21/23 05:21
Hct 46.5 % (39.0-52.0) 10/21/23 05:21
Plt Count 123 10^3/uL (130-400) L 10/21/23 05:21
PT 16.3 Sec (11.4-14.6) H 10/15/23 03:47
PT Cancelled 10/15/23 03:47
INR 1.33 10/15/23 03:47
INR Cancelled 10/15/23 03:47
APTT Cancelled 10/19/23 11:00
Sodium 133 mmol/L (135-145) L 10/21/23 07:29
Potassium 4.4 mmol/L (3.5-5.1) 10/21/23 07:29
BUN 40 mg/dl (9-20) H 10/21/23 07:29
Creatinine 1.3 mg/dL (0.7-1.3) 10/21/23 07:29
Glucose 106 mg/dl (70-99) H 10/21/23 07:29
Vital Signs and I&O:
Vital Signs
Temp Pulse Resp BP Pulse Ox
99.4 F 73 16 99/62 95
10/20/23 20:00 10/21/23 02:30 10/21/23 00:00 10/21/23 00:39 10/21/23 00:00
Vital Signs
Temp Pulse Resp BP Pulse Ox
99.4 F 73 16 99/62 95
10/20/23 20:00 10/21/23 02:30 10/21/23 00:00 10/21/23 00:39 10/21/23 00:00
Intake & Output
10/19/23 10/20/23 10/21/23 10/22/23
06:59 06:59 06:59 06:59
Intake Total 723.2 / 723.2 985 / 985 1285 / 1285
Output Total 3075 / 3075 2049 / 2049 1650 / 165
Balance -2351.8 / -2351.8 -1065 / -1065 -365 / -365
Physical Exam
Physical Exam
GEN: No distress, awake, Ox3
HEENT: supple, anicteric, mmm
LUNGS: CTA, no wheezes/rales
CV: Reg, S1/S2, 1/6 apical murmur
ABD: soft, BS+, NT/ND
EXT: No edema, clubbing or cyanosis
NEURO: Gross non-focal
SKIN: No rash, warm, dry, pink
--- NOTE | 2023-10-21 09:14 | PTCARENOTE ---
assumed care of pt from previous shift RN, sinus rhythm on tele w + ectopy, + peripheral pulses, no edema noted. Lungs clr, pox 99% on RA. +bs, tolerated PO intake, voids spontaneously. PIV flush easily. plan of care reviewed w the pt and questions
encouraged.
--- NOTE | 2023-10-21 09:19 | CM ---
Addendum entered by June Masterson 10/22/23 08:00:
Mr. Summers discharge plan is to return home with his spouse and a zoll life Vest. He will not be followed by the Cardiothoracic Transitional Care Nurse.
Addendum entered by June Masterson 10/21/23 15:27:
Zoll LIfe Vest was approved. Life Vest artists' booking representative will be here between 5:30-6:30 to fit and teach him about the Life Vest. The discharge plan is to return home with his spouse and a home visit by the Cardiothoracic Transitional Care Nurse when
medically stable.
Original Note:
Reviewed chart. Received consult for Life Vest. Telephone call to Life [facility]est to make the referral form. Sent order and medical documentation. Awaiting for Life Vest Insurance approval. Met with Mr. Summers to review discharge plans. He states he is
feeling well and maybe able to go home soon. He states he would like to know the time when the Life Vest fitting is going to be so his sister can be here to learn also. He has been ambulating in the room. Prior to admission he resides with his
spouse in a two story home with three steps to enter. He has a full flight of steps to get to bedroom/full bathroom. He has a powder room on the first floor. He has supportive sister who is an R.N. Medical work-up in progress. The discharge plan
is to return home with his spouse and a home visit by the Cardiothoracic Transitional Care Nurse and Life Vest when medically stable.
--- NOTE | 2023-10-21 10:10 | W.PN.HOSP.TC ---
Addendum entered and electronically signed by Carlos Barnard MD 10/21/23 16:52:
Read, reviewed, and agree. See same day progress note for additional details. Time spent coordinating care, DC planning, review of DC plan of care with resident, transition of care, review of records in EMR, med rec, consults, notes, d/w
consultants, nursing, family, and CM 35 mins
Original Note:
Documented by User: Syl Fleming MD, Resident 10/21/23 10:24
Today's Communication/Plan
-
Plan is to discharge with LifeVest
Assessment / Plan
Assessment / Plan
pt is a 68 year old male
#Acute Mixed HFmRF (EF 10% with stage 3 diastolic dysfunction) with cardiomyopathy and decreased cardiac output, consistent with cardiogenic shock likely from type 2 MN--s/p cardiac cath with findings (100% chronic total occlusion of mid LAD at the
level of the diagonal branch with eccentric 70% ostial diagonal stenosis and left to left collaterals)--better with diuresis but still with volume overload--Echo also with apical clot--apprec cards--cont diuresis, I/Os, daily weights---CT scan of
the chest PE protocol negative for pulmonary embolism. Moderate to severe cardiomegaly. Pulmonary edema--cardiac MRI reviewed with findings of old infarcts, clot, decreased EF etc...--
-apprec CT surgery
-Appreciate cardiology input
-Weaned off milrinone with no significant change in cardiac index. Cardiac output 10/18 at 3.33. Cardiac index 1.53--[place] now removed
-Restarted Eliquis after [place] catheter removal.
-Continue carvedilol, Farxiga, losartan, switched to p.o. furosemide. Amiodarone 400 mg p.o. added for nonsustained V-tach.
-Is cleared for d/c by cards--Waiting to be discharged on LifeVest
-Appointment has been set for second opinion at [facility] after discharge
Elevated Troponin:
likely Type 2 MN-trended downward. peak at 0.202.
-Continue Aspirin 81mg
-Appreciate Cardiology input
Recent diagnosis of anxiety:
-cont escitalopram 15 mg daily per pt
DVT prophylaxis: Eliquis
code status --Full code
Subjective/Interval History
-
Date of Service: October 21, 2023
Patient is generally feeling good. He was able to walk up and down stairs and around the hospital yesterday without any shortness of breath or chest pain. He is down 23 pounds since admission. [place] cath is removed.
Objective Data
-
Labs:
Laboratory Results
10/21/23 10/21/23 10/21/23
05:21 06:42 07:29
WBC 7.9
Hgb 16.6
Hct 46.5
Plt Count 123 L
Sodium Cancelled Cancelled 133 L
Potassium Cancelled Cancelled 4.4
Chloride Cancelled Cancelled 92 L
Carbon Dioxide Cancelled Cancelled 30
BUN Cancelled Cancelled 40 H
Creatinine Cancelled Cancelled 1.3
Glucose Cancelled Cancelled 106 H
Calcium Cancelled Cancelled 9.4
Vital Signs:
Vital Signs
Temp Pulse Resp BP Pulse Ox
98.2 F 70 16 92/65 99
10/21/23 08:00 10/21/23 09:00 10/21/23 08:00 10/21/23 07:39 10/21/23 09:36
I&O
10/20/23 10/21/23 10/22/23
06:59 06:59 06:59
Intake Total 985 / 985 1285 / 1285 100 / 100
Output Total 2049 1650 / 1650 150 / 150
Balance -1065 / -1065 -365 / -365 -50 / -50
Review of Systems
-
History Source: Patient
All other systems: Reviewed and negative
Physical Exam
-
General: Well Developed, Well Nourished and Comfortable
HEENT: Normocephalic and Atraumatic
Respiratory: Clear to Auscultation
Cardiac: Regular Rhythm and S1/S2
GI: Soft, Nontender, Nondistended and Normal Bowel Sounds
Musculoskeletal: No Clubbing, No Cyanosis and No Edema
Skin: Warm
Neuro: Awake, Alert, Oriented and AO x 3
Hematologic / Lymphatic: No Lymphadenopathy
Psych: Calm
Data Reviewed
-
Total Time Spent with Patient (in minutes): 20

Documented by User: Carlos Barnard MD 10/21/23 16:52
Assessment / Plan
Assessment / Plan
pt is a 68 year old male
#Acute HFrEF (EF 10% with stage 3 diastolic dysfunction) with cardiomyopathy and decreased cardiac output--s/p cardiac cath with findings (100% chronic total occlusion of mid LAD at the level of the diagonal branch with eccentric 70% ostial diagonal
stenosis and left to left collaterals)--better with diuresis and improvedvolume overload--Echo also with apical clot--apprec cards--cont diuresis, I/Os, daily weights---CT scan of the chest PE protocol negative for pulmonary embolism. Moderate to
severe cardiomegaly. --cardiac MRI reviewed with findings of old infarcts, clot, decreased EF etc...--
-apprec CT surgery
-Appreciate cardiology input
-Weaned off milrinone with no significant change in cardiac index. Cardiac output 10/18 at 3.33. Cardiac index 1.53--[place] now removed
-Restarted Eliquis after [place] catheter removal.
-Continue carvedilol, Farxiga, losartan, switched to p.o. furosemide. Amiodarone 400 mg p.o. added for nonsustained V-tach.
-Is cleared for d/c by cards--Waiting to be discharged on LifeVest
-Appointment has been set for second opinion at [facility] after discharge
Elevated Troponin:
likely sec nonischemic myocardial injury . peak at 0.202.
-Continue Aspirin 81mg
-Appreciate Cardiology input
Recent diagnosis of anxiety:
-cont escitalopram 15 mg daily per pt
DVT prophylaxis: Eliquis
code status --Full code
Anticipated Discharge: Today
--- NOTE | 2023-10-21 11:06 | W.DS.TRANS ---
DC Summary - Geography Head
-
Discharge Instructions:
Discharge Diagnosis/Procedures cardiac catheterization, acute heart failure
with reduced ejection fraction, dilated
cardiomyopathy
Diet As tolerated
Activity No strenuous activity
Driving Restrictions As prior to admission
Bathing Restrictions None
Blood Work BMP in one week (slip given by cardiology)
Specialty Instructions Weigh Daily
Instructions: *[facility] Heart Failure Instructions
Stand-Alone Forms: DC Instructions- Cath/EP Lab
Changes to Home Medications: Yes
Discharge Medications:
DC Medications w/original date entered in [facility]
escitalopram oxalate 10 mg tablet 15 mg PO DAILY 10/12/23
dapagliflozin propanediol 10 mg tablet 10 mg PO DAILY Heart Failure #30 tabs 10/17/23
amiodarone 200 mg tablet 200 mg PO BID #60 tabs 10/21/23
apixaban 5 mg tablet (Eliquis) 5 mg PO BID #60 tabs 10/21/23
aspirin 81 mg chewable tablet 81 mg PO DAILY #30 tabs 10/21/23
carvedilol 3.125 mg tablet 3.125 mg PO BID #60 tabs 10/21/23
furosemide 80 mg tablet 80 mg PO BID@0800,1600 #60 tabs 10/21/23
losartan 50 mg tablet 25 mg (1/2 x 50 mg) PO DAILY #30 tabs 10/21/23
rosuvastatin 20 mg tablet 20 mg PO QPM #30 tabs 10/21/23
Home Medication Changes
New medications:
dapagliflozin propanediol 10 mg tablet 10 mg PO DAILY Heart Failure #30 tabs 10/17/23
amiodarone 200 mg tablet 200 mg PO BID #60 tabs 10/21/23
apixaban 5 mg tablet (Eliquis) 5 mg PO BID #60 tabs 10/21/23
aspirin 81 mg chewable tablet 81 mg PO DAILY #30 tabs 10/21/23
carvedilol 3.125 mg tablet 3.125 mg PO BID #60 tabs 10/21/23
furosemide 80 mg tablet 80 mg PO BID@0800,1600 #60 tabs 10/21/23
losartan 50 mg tablet 25 mg (1/2 x 50 mg) PO DAILY #30 tabs 10/21/23
rosuvastatin 20 mg tablet 20 mg PO QPM #30 tabs 10/21/23
Pending Results: No
[2023-10-21 11:39] VITALS: BP 89/69
--- NOTE | 2023-10-21 12:14 | PTCARENOTE ---
pt VSS, sinus rhythm with PVCs, pt without complaint
[2023-10-21] MEDS: PREVNAR 20 0.5 ML IM (12:54)
--- NOTE | 2023-10-21 13:15 | PTCARENOTE ---
pneumonia vaccine administered as ordered. Awaiting life vest rep prior to tentative d/c home.
--- NOTE | 2023-10-21 16:05 | PTCARENOTE ---
vss, sinus rhythm on tele w ectopy. pt denies pain. still waiting for life vest rep
[2023-10-21 16:42] VITALS: BP 87/60
[2023-10-21] MEDS: CRESTOR 20 MG PO (16:42)
--- NOTE | 2023-10-21 17:52 | W.DCSUMMARY ---
Discharge Summary
Discharge Data
Date of Admission: 10/13/23
Date of Discharge: 10/21/23
Total time spent discharging patient (in min): 30
-
Pending Results: No
Hospital Course
Patient is a 68-year-old male with no significant PMH who presented to [facility] with several months of orthopnea, PND and dyspnea. The symptoms had been ongoing since June and had gradually worsened. He had recently noticed edema and
swelling in his legs. He denied any chest pain although he did report occasional fullness in the center of his chest. He denied any history of hypertension, diabetes or hyperlipidemia. He stopped drinking three months ago (before he was drinking
approximately 12 beers a week) and stopped smoking 20 years ago. Patient did mention occasional recreational marijuana. He denied any recent illnesses or URIs. Did not have any fevers/chills, coughing/wheezing,palpitations or syncope. He had
highly elevated proBNP and troponin in ED. CT scan of the chest was negative for pulmonary embolism but showed moderate to severe cardiomegaly, pulmonary edema, and reflux of contrast to IVC and hepatic veins, suggesting elevated right heart
pressures. Patient was admitted for further evaluation.
# Acute heart failure with reduced ejection fraction: Patient was initially placed on Lasix 40 twice daily, Coreg 3.125 mg BID, losartan 25 mg daily and aspirin. Echo (10/14/23): Left ventricle is severely dilated. Severely reduced left ventricular
systolic function. Severe global hypokinesis. There is possible anteroseptal, septal, and apical akinesis. Normal left ventricular wall thickness. Left ventricular ejection fraction is 10%. Stage III diastolic dysfunction suggestive of
restrictive filling pattern and increased filling pressures.Laminated apical thrombus. Moderate to severe mitral regurgitation. Mild tricuspid regurgitation. Estimated pulmonary artery pressure of 39 mmHg assuming a right atrial pressure of 20 mmHg.
Cardiac cath later same day (10/14/23) showed 100% chronic total occlusion of mid LAD at the level of the diagonal branch with eccentric 70% ostial diagonal stenosis and left to left collaterals, significantly elevated right and left-sided filling
pressures with severely reduced cardiac output in the setting of severely elevated systemic vascular resistance, CI=1.06. Consequently, Coreg was held, heparin gtt and low-dose milrinone started and Lasix was increased to 80 twice daily. PFT test
was normal. Cardiac MRI (10/15/23): Severe hypokinesis noted with regions of old infarction including areas of thinning and a small focus of enhancement within the LV apex compatible with apical thrombus. No evidence of inflammatory process or
noncompaction cardiomyopathy. Moderate MR and TR noted. After completion of MRI, patient underwent placement of Greenbelt catheter for close monitoring of hemodynamics (10/16/23). Right heart cath (10/15) again showed significantly elevated right and
left-sided filling pressures with reduced cardiac output in the setting of elevated systemic vascular resistance, CI: 1.19. Losartan was increased to 50 daily, Farxiga was added, and rest of medication continued. Repeat echo on 10/18/23 showed
increased left ventricular ejection fraction to 15-20% by Retana's method. Cardiac index remained stable through 10/19/23, he was weaned off Primacor and Greenbelt cath was removed. Subsequently Eliquis and Coreg were started, Cozaar dose was reduced
and IV Lasix was switched to oral. Patient had some NSVT's overnight and amiodarone was started. Patient eventually had improved hemodynamics and could ambulate on floors on room air without any shortness of breath or chest pain. He was cleared
for discharge by cardiology providing continuing patient of his medications. LifeVest was arranged prior to discharge. Patient may transition from losartan to Entresto or Aldactone as an outpatient. Dr. Alexandra Gabriel at [facility] was
contacted to arrange cardiac consultation following discharge as outpatient. Patient was provided with disc of studies and records.
#Anxiety: As prior to discharge. Escitalopram was continued.
Patient is in fair condition and is stable for discharge to home.
Discharge Plan
-
Patient Disposition: Home (Routine Discharge)
Discharge Diagnosis/Procedures: cardiac catheterization, acute heart failure with reduced ejection fraction, dilated cardiomyopathy
Condition: Fair
Diet: As tolerated
Activity: No strenuous activity
Driving Restrictions: As prior to admission
Bathing Restrictions: None
Blood Work: BMP in one week (slip given by cardiology)
Specialty Instructions: Weigh Daily- Call MD for wt gain/loss 3 lbs overnight/5 lbs in 1 week
Instructions: *DCA Heart Failure Instructions
Stand Alone Forms: DC Instructions- Cath/EP Lab
Referrals:
Zuleima Marin CRNP [Specified Professional Personl] - 11/07/23 9:20 am (You have cardiology follow up with FLORENCE Dowd on November 06 at 9:20 am in [address] in the [facility] which is located behind the hospital. If you are unable to make
this please call [phone] to reschedule)
Tom Hoang MD [Family Provider] - in less than 1 week
Prescriptions:
New
dapagliflozin propanediol 10 mg Tablet
10 mg PO DAILY Qty: 30 11RF
amiodarone 200 mg Tablet
200 mg PO BID Qty: 60 0RF
carvedilol 3.125 mg Tablet
3.125 mg PO BID Qty: 60 0RF
Eliquis 5 mg Tablet
5 mg PO BID Qty: 60 0RF
losartan 50 mg Tablet
25 mg PO DAILY Qty: 30 0RF
rosuvastatin 20 mg Tablet
20 mg PO QPM Qty: 30 0RF
furosemide 80 mg Tablet
80 mg PO BID@0800,1600 Qty: 60 0RF
aspirin 81 mg Tablet,Chewable
81 mg PO DAILY Qty: 30 0RF
Continued
escitalopram oxalate 10 mg Tablet
15 mg PO DAILY
Discharge Orders:
Discharge Patient (As Directed); Ordered 10/21/23
Ordered By: Syl Fleming
Care Plan Goals
Care Plan Goals:
Problem: Readiness for enhanced knowledge related to diagnosis and treatment plan
Goal: Understand your diagnosis and treatment plan needs, including medications if applicable.
Instructions: Know your diagnosis, underlying causes and treatment plan options, including medications if applicable. Consult with your health care team to learn about your diagnosis and treatment plan, including medications if applicable.
Discharge Date and Time
Print Language: LAO
--- NOTE | 2023-10-21 18:16 | PTCARENOTE ---
IV lines and tele monitor removed. discharge instructions, medication list and follow up appointments reviewed w the pt and his , emotional support provided and questions encouraged.
== END 2023-10-21 18:17 | disposition home or self-care (01) | DRG 280 ==
LOC: CVICU 01:29
PROVIDERS: Internal Medicine; Internal Medicine Interventional Cardiology; Nurse Practitioner; Nurse Practitioner Adult Health; Physician Assistant Medical; ADMITTING PHYSICIAN Internal Medicine; ATTENDING PHYSICIAN Internal Medicine; CONSULT PHYSICIAN Internal Medicine Cardiovascular Disease; CONSULT PHYSICIAN Thoracic Surgery (Cardiothoracic Vascular Surgery); EMERGENCY PHYSICIAN Student in an Organized Health Care Education/Training Program; FAMILY PHYSICIAN Family Medicine
PROC: B2111ZZ Fluoroscopy of Multiple Coronary Arteries using Low Osmolar Contrast (ICD-10-PCS; 2023-10-14)
PROC: 4A023N8 Measurement of Cardiac Sampling and Pressure, Bilateral, Percutaneous Approach (ICD-10-PCS; 2023-10-14)
PROC: 4A023N6 Measurement of Cardiac Sampling and Pressure, Right Heart, Percutaneous Approach (ICD-10-PCS; 2023-10-16)
PROC: 3E0234Z Introduction of Serum, Toxoid and Vaccine into Muscle, Percutaneous Approach (ICD-10-PCS; 2023-10-21)
DX: I50.21 Acute systolic (congestive) heart failure (principal); R57.0 Cardiogenic shock; I21.A1 Myocardial infarction type 2; I42.0 Dilated cardiomyopathy; I47.20 Ventricular tachycardia, unspecified; E87.1 Hypo-osmolality and hyponatremia; F41.9 Anxiety disorder, unspecified; F32.A Depression, unspecified; I49.3 Ventricular premature depolarization; I08.1 Rheumatic disorders of both mitral and tricuspid valves; I25.10 Atherosclerotic heart disease of native coronary artery without angina pectoris; I25.82 Chronic total occlusion of coronary artery; I25.5 Ischemic cardiomyopathy; I51.3 Intracardiac thrombosis, not elsewhere classified; D69.6 Thrombocytopenia, unspecified; Z82.49 Family history of ischemic heart disease and other diseases of the circulatory system; Z87.891 Personal history of nicotine dependence; Z23 Encounter for immunization
CPT/HCPCS: 93308; 94727; 94729; 70355; 71045; 71046; 71275; 75561; 80048; 80053; 80061; 80306; 82077; 82248; 82330; 82810; 83036; 83605; 83735; 83880; 84132; 84443; 84484; 85025; 85027; 85610; 85730; 86618; 87070; 90677; 93005; 93306; 93451; 93456; 93880; 94010; 94760; 99152; 99153; 99285; A9585; C1769; C1894; G0009; J2260; P9047; Q9950; Q9967

== ENCOUNTER → 2024-01-30 08:20 | Outpatient (REF) | payer MEDICARE, BC, SELFPAY ==
--- NOTE | 2024-01-30 09:15 | CARDSERVLU ---
Echocardiogram with Lumason completed after protocol screening completed. Allergies verified.
Patent IV site: _RAC____
IV site flushed with 0.9% NaCl pre and post administration.
Diluted bolus method utilized to enhance visualization of ventricular wilson.
Total volume given: __3__ mL
Patient tolerated all procedures well without complications.
== END ==
LOC: HWRCS 08:20
PROVIDERS: ATTENDING PHYSICIAN Nurse Practitioner; FAMILY PHYSICIAN Family Medicine
DX: I50.21 Acute systolic (congestive) heart failure (principal)
CPT/HCPCS: 93306; Q9950

== ENCOUNTER → 2024-04-10 10:16 | Outpatient (REF) | payer MEDICARE, BC, SELFPAY ==
--- NOTE | 2024-04-10 11:30 | CARDSERVLU ---
Echocardiogram with Lumason completed after protocol screening completed. Allergies verified.
Patent IV site: __R AC ___
IV site flushed with 0.9% NaCl pre and post administration.
Diluted bolus method utilized to enhance visualization of ventricular wilson.
Total volume given: __2.5__ mL
Patient tolerated all procedures well without complications.
== END ==
LOC: RCS 10:16
PROVIDERS: ATTENDING PHYSICIAN Internal Medicine Cardiovascular Disease; FAMILY PHYSICIAN Family Medicine; REFERRING PHYSICIAN Internal Medicine Cardiovascular Disease
DX: I25.10 Atherosclerotic heart disease of native coronary artery without angina pectoris (principal)
CPT/HCPCS: 93308; Q9950

== ENCOUNTER 2024-06-24 08:58 | Day surgery (SDC) | payer MEDICARE, BC, SELFPAY ==
[2024-06-24] VITALS (14 sets, daily range): BP systolic 74–106; BP diastolic 42–65; PULSE 61–69; BMI 27.9
--- NOTE | 2024-06-24 08:49 | W.ICD.CONTRA ---
Post ICD/ON AIR HOST-D
-
History of CT?: Yes
LV Function
Left ventricular function study result?: Ejection Fraction </= 35%
ACEI/ARB/ARNI
Patient already on ACEI/ARB/ARNI: Yes
Beta-Hardeep
Patient already on Beta Hardeep: Yes
[2024-06-24 09:53] LABS: Blood Urea Nitrogen 40 mg/dl (9-20); Calcium 9.9 mg/dl (8.4-10.2); Carbon Dioxide 27 mmol/L (22-30); Chloride 104 mmol/L (98-107); Estimated Creatinine Clearance 42 ml/min; Glucose 120 mg/dl (70-99); Potassium 4.8 mmol/L (3.5-5.1); Sodium 140 mmol/L (135-145); eGFR 40.75
[2024-06-24] MEDS: NSS 500 IV (10:00)
--- NOTE | 2024-06-24 11:01 | ITS.CL.ICD ---
Floriculture Professor - ICD
Implantable Cardioverter Defibrillator
Procedure Report:
Primary Livestock Ranch Hand: Dr. William Valero
Procedure Date: 06/24/2024
Name of procedure:
1. Placement of a primary prevention dual-chamber ICD
2. Subclavian venography
History:
1. 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
hypertension, hyperlipidemia.
2. Please refer to H&P for complete history.
Indication:
NYHA II�III heart failure
LVEF less than or equal to 35% for greater than 90 days on maximally tolerated goal-directed medical therapy
Bradycardia
Methods:
After informed consent was obtained, the patient was brought to the EP laboratory in a postabsorptive, nonsedated state. Peripheral IV access was established. Prophylactic antibiotics were administered prior to incision. Continuous ECG, blood
pressure, and pulse oximetry were initiated. Cardioversion patch electrodes were placed on the patient's chest and back. A grounding patch was applied to the skin. Sedation was administered by anesthesia services.
In order to define the extrathoracic portion of the subclavian vein and exclude significant venous obstruction or anomalous anatomy, subclavian venography was performed prior to the procedure. Using the patient's left peripheral IV, contrast was
injected and images were recorded. The left subclavian vein and SVC were found to be widely patent.
The left chest was prepared and draped in a sterile fashion. A time-out was performed. Local anesthesia was injected in the subcutaneous tissue in the infraclavicular area. An incision was made medial to the deltopectoral groove. The subcutaneous
tissue was dissected the level of the prepectoral fascia. A subcutaneous pocket was created. Under fluoroscopic guidance and with the assistance of the images from the venogram, 2 separate venipunctures were made using micropuncture and modified
Seldinger technique. These were performed in the extrathoracic portion of the subclavian vein. Guidewires were passed and two peel-away sheaths were placed, and used to advance leads into the circulation.
Using fluoroscopic guidance, the leads were positioned. The RV lead was advanced to the RV/outflow tract. Ventricular ectopy was recorded. Images were taken in DONG and MOHAWK views to ensure appropriate lead placement. The lead tip was subsequently
positioned on the apical septum. Adequate sensing and pacing parameters were found, and no diaphragmatic stimulation was seen with high-output pacing.
Next, the right atrial lead was positioned in the right atrial appendage. Adequate sensing and pacing parameters were found, and no diaphragmatic stimulation was seen with high-output pacing. Both sheaths were split, and the leads were secured to
the fascia with Ethibond ties.
The pocket was flushed with antibiotic solution and hemostasis was assured. The generator was connected to the leads and placed inside the pocket. Antibiotic envelope was used. Surgiflo was applied. The wound was closed with 3 running layers of
absorbable suture, and steri-strips were applied. Dressing applied over steri-strips in standard fashion.
Following the procedure, the patient was taken to the recovery area in stable condition.
Lead parameters and device programming:
- RA Lead (Medtronic, Model 5076, # [id number]): Sensing 2.3 mV, Pacing threshold 1.5 V at 0.4 ms, Imp 520 ohm
- RV Lead (Medtronic, Model 6935M, # [id number]): Sensing 6.0 mV, Pacing threshold 0.5 V at 0.4 ms, Imp 530 ohm
- Device: Medtronic, [id number] ICD (# [id number]), programmed AAIR�DDDR, mode switch on, lower rate 60, upper tracking rate 130 ppm
- Zones: VF greater than 188 bpm, ATP while charging
Conclusions:
1. Successful placement of a primary prevention dual-chamber ICD
2. Subclavian venography
Recommendations:
- Admit
-Chest x-ray today, [facility] in a.m.
- IV antibiotics while the patient is admitted.
- OK to resume home medications as indicated; plan for oral anticoagulation on 06/26/2024 if site and patient stable
� Reduce Lasix to 20 mg daily, repeat lab work in a.m.
- Pressure dressing to be removed in AM, aquacell to remain until wound check
- Follow-up for incision check in the office in 7-10 days post-discharge
[place], DO, FACC
Clinical Cardiac Grinder Needle Tip
cc: Dr William Valero; Dr Tom Hoang
--- NOTE | 2024-06-24 14:27 | PTCARENOTE ---
Received patient from PACU after ICD placement left upper chest. Pressure dressing is dry and intact, immobilizer is in place. Post EKG done, monitoring VS, A paced on the monitor. Reviewed post op restrictions, call wolff in reach, lunch ordered for
the patient.
--- NOTE | 2024-06-24 15:59 | CM ---
Chart reviewed. Patient is independent of ADLS, lives with his in a [address], 2 [address], 0 DME. Plan is for the patient to return home. CM to follow
--- NOTE | 2024-06-24 16:52 | PTCARENOTE ---
BP running low post op, patient now fully AAO but SBP remains in the 80's, patient is asymptomatic and states he 'always runs low'. Orthostatic BP done with standing BP of 74/54. M. Joann COTA notified, will write parameter for this evening's coreg
dose. Sending patient for CXR as ordered.
[2024-06-24] MEDS: ANCEF 5 IV (17:25)
[2024-06-24] MEDS: CRESTOR 20 MG PO (17:25)
[2024-06-24] MEDS: FLUSH (NSS) 1 FLUSH IV (17:26)
[2024-06-24] MEDS: TYLENOL 650 MG PO (20:14)
[2024-06-24] MEDS: PACERONE 200 MG PO (20:15)
[2024-06-24] MEDS: COREG 25 MG PO (20:22)
[2024-06-24] MEDS: NSS IV (20:45)
[2024-06-25] MEDS: MELATONIN 5 MG PO (00:31)
[2024-06-25 03:47] VITALS: BP 124/72
[2024-06-25] MEDS: ANCEF 5 IV (03:49)
[2024-06-25] MEDS: FLUSH (NSS) 2 FLUSH IV (03:49)
[2024-06-25] MEDS: TYLENOL 650 MG PO ×2 (03:55→09:39)
[2024-06-25 03:56] VITALS: BMI 27.9
[2024-06-25 04:26] LABS: Hematocrit 37.2 % (39.0-52.0); Hemoglobin 13.2 g/dL (13.0-18.0); Mean Corp Hgb Conc. 35.5 g/dL (33.0-37.0); Mean Corpuscular Hgb 34.2 pg (27.0-31.0); Mean Corpuscular Volume 96.4 fL (80.0-94.0); Platelet Count 169 10^3/uL (130-400); Red Blood Cell Count 3.86 10^6/uL (4.70-6.10); Red Cell Dist. Width 11.7 % (11.5-14.5); White Blood Cell Count 19.5 10^3/uL (4.8-10.8)
[2024-06-25 05:00] LABS: Blood Urea Nitrogen 43 mg/dl (9-20); Calcium 9.7 mg/dl (8.4-10.2); Carbon Dioxide 22 mmol/L (22-30); Chloride 104 mmol/L (98-107); Estimated Creatinine Clearance 48 ml/min; Glucose 136 mg/dl (70-99); Magnesium 2.1 mg/dl (1.6-2.3); Potassium 4.5 mmol/L (3.5-5.1); Sodium 137 mmol/L (135-145); eGFR 46.93
[2024-06-25 07:08] VITALS: BP 112/67
[2024-06-25] MEDS: FARXIGA 10 MG PO (09:25)
[2024-06-25] MEDS: LASIX 20 MG PO (09:25)
[2024-06-25] MEDS: COREG 25 MG PO (09:25)
[2024-06-25] MEDS: PACERONE 200 MG PO (09:26)
[2024-06-25] MEDS: LOW STRENGTH ASPIRIN 81 MG PO (09:26)
[2024-06-25] MEDS: COZAAR 25 MG PO (09:26)
--- NOTE | 2024-06-25 10:23 | W.PN.CARDCBS ---
Addendum entered and electronically signed by Vicente Schreiber MD 06/25/24 12:12:
Patient seen and examined
Agree with ASSISTANT TRACK AND FIELD COACH note and assessment
Agree with ASSISTANT TRACK AND FIELD COACH plan
Exam:
ICD site clean dry and intact
Chest x-ray reviewed with stable lead positions and no pneumothorax
Appropriate atrial and ventricular sensing on telemetry
Cor regular
Alert and x 3
Remainder as per ASSISTANT TRACK AND FIELD COACH note
Impression:
Chronic HFrEF 35%
post DC ICD implant for primary prevention 06/24/24
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
NSVT
HTN
HLD
Mod-severe MR - recovered
h/o LV thrombus
CKD 3a
Plan:
Stable for discharge
Hold Eliquis resume on Saturday am
Will decrease lasix to 20mg daily
Cr stable 1.8
HF - continue GDMT Farxiga, losartan, carvedilol
Asking about stopping amiodarone - will monitor on device for further NSVT
Activity restrictions reviewed
Incision check in 1 week DCA
home today
Original Note:
Today's Communication / Plan
-
Post ICD stable for d/c home
Impression / Plan
-
Primary Director For [employer]: Dr. William Valero
Primary care physician: Dr. Hoang
Heart failure dairy hand: Alexandra Gabriel MD @ [facility]
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
Impression:
Chronic HFrEF 35%
post DC ICD implant for primary prevention 06/24/24
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
NSVT
HTN
HLD
Mod-severe MR - recovered
h/o LV thrombus
CKD 3a
Plan:
post device site stable
tele SR with occ Apacing
CXR no PTX
Hold Eliquis resume on Saturday am
Will decrease lasix to 20mg daily
Cr stable 1.8
HF - continue GDMT Farxiga, losartan, carvedilol
Asking about stopping amiodarone - will monitor on device for further NSVT
Activity restrictions reviewed
Incision check in 1 week DCA
home today
Progress Note - Director For [employer]
Subjective
Date of Service: June 25, 2024
denies cp, sob, mild inc pain
Objective
Labs:
06/25/24 04:10
06/25/24 04:10
Labs
Hgb 13.2 g/dL (13.0-18.0) 06/25/24 04:10
Hct 37.2 % (39.0-52.0) L 06/25/24 04:10
Plt Count 169 10^3/uL (130-400) 06/25/24 04:10
Sodium 137 mmol/L (135-145) 06/25/24 04:10
Potassium 4.5 mmol/L (3.5-5.1) 06/25/24 04:10
BUN 43 mg/dl (9-20) H 06/25/24 04:10
Creatinine 1.6 mg/dL (0.7-1.3) H 06/25/24 04:10
Glucose 136 mg/dl (70-99) H 06/25/24 04:10
Vital Signs and I&O:
Vital Signs
Temp Pulse Resp BP Pulse Ox
98.3 F 65 24 96
06/25/24 08:27 06/25/24 09:26 06/25/24 08:27 06/25/24 09:26 06/25/24 08:27
Vital Signs
Temp Pulse Resp BP Pulse Ox
98.3 F 65 24 96
06/25/24 08:27 06/25/24 09:26 06/25/24 08:27 06/25/24 09:26 06/25/24 08:27
Intake & Output
06/23/24 06/24/24 06/25/24 06/26/24
06:59 06:59 06:59 06:59
Intake Total 1480 / 1480
Output Total 400 / 400
Balance 1080 / 1080
Physical Exam
Physical Exam
NAD< AOX3
S1, S2, RRR
CTAB,non labored, no wheeze
SNTND bsx4
L CW dressing c/d/i no HT< pressure dressing removed
--- NOTE | 2024-06-25 10:48 | PTCARENOTE ---
D/C instructions given to patient and , both verbalizes understanding. INT D/C'd, telemetry D/C'd , personal belongings packed and sent home with patient. LCW Acuseal intact, no hematoma, no ecchymosis, tender, Tylenol 2 tabls po given as
ordered. D/C to home via wc accompanied by staff.
--- NOTE | 2024-06-25 14:08 | W.DS.TRANS ---
DC Summary - Filling Machine Operator
-
Discharge Instructions:
Discharge Diagnosis/Procedures ICD implant
Diet Low Cholesterol,2 Gram Sodium
Driving Restrictions No driving for 1 week
Bathing Restrictions OK to Shower
Specialty Instructions Weigh Daily
Instructions:
Stand-Alone Forms: DC Inst - Implanted Device
Changes to Home Medications: Yes
Discharge Medications:
DC Medications w/original date entered in [employer]
dapagliflozin propanediol 10 mg tablet 10 mg PO DAILY Heart Failure #30 tabs 10/17/23
amiodarone 200 mg tablet 200 mg PO BID #60 tabs 10/21/23
apixaban 5 mg tablet (Eliquis) 5 mg PO BID #60 tabs 10/21/23
aspirin 81 mg chewable tablet 81 mg PO DAILY #30 tabs 10/21/23
losartan 50 mg tablet 25 mg (1/2 x 50 mg) PO DAILY #30 tabs 10/21/23
rosuvastatin 20 mg tablet 20 mg PO QPM #30 tabs 10/21/23
carvedilol 25 mg tablet 25 mg PO BID 06/24/24
furosemide 40 mg tablet (Lasix) 20 mg (1/2 x 40 mg) PO DAILY #90 tabs 06/25/24
Home Medication Changes
decrease lasix to 20mg daily
Pending Results: No
== END 2024-06-25 10:30 | disposition home or self-care (01) ==
LOC: CATH 08:58
PROVIDERS: Nurse Practitioner; Nurse Practitioner Adult Health; ATTENDING PHYSICIAN Internal Medicine Cardiovascular Disease; FAMILY PHYSICIAN Family Medicine; OTHER PHYSICIAN Internal Medicine Cardiovascular Disease
DX: I13.0 Hypertensive heart and chronic kidney disease with heart failure and stage 1 through stage 4 chronic kidney disease, or unspecified chronic kidney disease (principal); I50.22 Chronic systolic (congestive) heart failure; N18.31 Chronic kidney disease, stage 3a; Z79.01 Long term (current) use of anticoagulants; E78.5 Hyperlipidemia, unspecified; I25.5 Ischemic cardiomyopathy; I42.8 Other cardiomyopathies; I47.20 Ventricular tachycardia, unspecified; I25.10 Atherosclerotic heart disease of native coronary artery without angina pectoris; I25.82 Chronic total occlusion of coronary artery; I34.0 Nonrheumatic mitral (valve) insufficiency; Z79.899 Other long term (current) drug therapy
CPT/HCPCS: 33249; 71045; 80048; 83735; 85027; 93005; C1721; C1777; C1892; C1898; Q9967

== ENCOUNTER → 2024-12-14 08:43 | Outpatient (REF) | payer MEDICARE, BC, SELFPAY ==
[2024-12-14 11:24] LABS: Hematocrit 39.7 % (39.0-52.0); Hemoglobin 13.7 g/dL (13.0-18.0); Mean Corp Hgb Conc. 34.5 g/dL (33.0-37.0); Mean Corpuscular Volume 98.3 fL (80.0-94.0); Platelet Count 161 10^3/uL (130-400); Red Cell Dist. Width 12.2 % (11.5-14.5)
[2024-12-14 12:32] LABS: Blood Urea Nitrogen 33 mg/dl (9-20); Calcium 9.4 mg/dl (8.4-10.2); Carbon Dioxide 25 mmol/L (22-30); Chloride 106 mmol/L (98-107); Glucose 91 mg/dl (70-99); Potassium 4.8 mmol/L (3.5-5.1); Sodium 137 mmol/L (135-145); eGFR 43.64
== END ==
LOC: SDSPAT 08:43
PROVIDERS: ATTENDING PHYSICIAN Surgery; FAMILY PHYSICIAN Family Medicine
DX: Z01.818 Encounter for other preprocedural examination (principal)
CPT/HCPCS: 36415; 80048; 85027

== ENCOUNTER 2024-12-25 05:45 | Day surgery (SDC) | payer MEDICARE, BC, SELFPAY ==
[2024-12-14 14:16] VITALS: BMI 25.5
[2024-12-25 06:30] VITALS: BP 118/67
[2024-12-25] MEDS: TYLENOL 1000 MG PO (06:30)
[2024-12-25] MEDS: NORMOSOL-R/PLASMALYTE-A 1000 IV (06:41)
--- NOTE | 2024-12-25 06:56 | HP.FOC2 ---
Focused History & Physical
Chief Complaint
HPI:
Chief Complaint: Right inguinal hernia
HPI / Indication for Planned Procedure: 69-year-old male recently seen at outpatient surgical evaluation secondary to right inguinal swelling and discomfort. Physical examination confirmed the presence of a readily apparent and reducible right
inguinal hernia. After discussions regarding treatment options patient wished to pursue operative correction M presents today for open repair with mesh.
Relevant Past Medical History: Other (CHF with reduced ejection fraction, dual-chamber ICD, CAD, hypertension, history of nonsustained ventricular tachycardia, hyperlipidemia, moderate to severe mitral regurgitation, history of left ventricular
thrombus, stage IIIa CKD)
Relevant Social History: Negative
Relevant Family History: Negative
Relevant Past Surgical History: Positive for (AICD/pacemaker)
Review of Systems
Review of Pertinent Systems: All Systems Negative
Medication
See Medication form for detailed medications: Yes
Medication List (including Herbals & OTC):
dapagliflozin propanediol 10 mg tablet 10 mg PO DAILY Heart Failure #30 tabs 10/17/23
apixaban 5 mg tablet (Eliquis) 5 mg PO BID #60 tabs 10/21/23
aspirin 81 mg chewable tablet 81 mg PO DAILY #30 tabs 10/21/23
losartan 50 mg tablet 25 mg (1/2 x 50 mg) PO DAILY #30 tabs 10/21/23
carvedilol 25 mg tablet 25 mg PO BID 06/24/24
amiodarone 200 mg tablet 200 mg PO DAILY 12/16/24
furosemide 40 mg tablet (Lasix) 10 mg PO BID 12/16/24
rosuvastatin 20 mg tablet 20 mg PO DAILY 12/16/24
Medications Reviewed: Yes
Allergies and Reactions
Patient has Allergies: Yes
Noted Allergies and Reactions:
Allergy/AdvReac Type Severity Reaction Status Date / Time
shingles vaccine Allergy Nausea / Uncoded 12/25/24 06:21
Vomiting
Pertinent Physical Exam
All Other Systems: Negative
Head/Neck: Normal
Lungs: Normal
Heart: Normal
Abdomen: Other (Reducible right inguinal hernia)
Extremities: Normal
Neurological: Normal
Diagnosis / Assessment
69-year-old male presenting for scheduled operative correction symptomatic right inguinal hernia
Plan / Procedure
Open right inguinal hernia pair with mesh
Anesthesia/Sedation to be done by Anesthesia Provider: Yes
--- NOTE | 2024-12-25 06:58 | W.SUR.PREOP ---
Pre-Operative Surgical Note
-
I have examined this patient prior to the performance of the scheduled procedure.
The patient's condition is unchanged from the time of the current History and
Physical and the patient is able to undergo the scheduled procedure.
[2024-12-25 07:00] VITALS: BMI 25.5
--- NOTE | 2024-12-25 08:28 | W.IMMPOSTOP ---
Addendum entered and electronically signed by Chet Mcfarlane MD 12/25/24 09:01:
#[id number]
Original Note:
Surgical Immed Post Op Note
-
Primary Surgeon: Chet Mcfarlane MD
Assisting Surgeon: Sandra Santana PA-C
Pre-op Diagnosis: Right inguinal hernia
Post-op Diagnosis: Right inguinal hernia, direct
Procedure Performed: Open Holli tension-free mesh repair right inguinal hernia; Bard soft 7.5 cm x 15 cm
Anesthesia Type: MAC +1% lidocaine and quarter percent Marcaine with epinephrine
Specimen / Cultures: None
Estimated Blood Loss: 6 mL
Complications: None immediate
Operative Findings: Right direct inguinal hernia. Indirect space normal. No lipoma of spermatic cord. Reapproximation of attenuated transversalis fascia. Onlay tension-free mesh repair, Bard soft 7.5 x 15 cm with slit to accommodate spermatic
cord and trimming of lateral tails.
The assistance of Sandra Santana PA-C was required due to the complexity of the procedure. During the procedure Sandra Santana PA-C assisted with tissue retraction, and closure of the incision sites. I was present for the entirety of the operative
procedure.
[2024-12-25 08:34] VITALS: BP 101/54
[2024-12-25 08:45] VITALS: BP 110/70
[2024-12-25 09:00] VITALS: BP 116/62
[2024-12-25 09:15] VITALS: BP 93/69
[2024-12-25 09:23] VITALS: BP 110/65
== END 2024-12-25 09:40 | disposition home or self-care (01) ==
LOC: SDS 05:45
PROVIDERS: ATTENDING PHYSICIAN Surgery
DX: K40.90 Unilateral inguinal hernia, without obstruction or gangrene, not specified as recurrent (principal)
CPT/HCPCS: 49505